=== PATIENT | male | born 1970 | race Two or more races ===

== ENCOUNTER 2019-02-06 09:51 | Inpatient (IN) | payer SELFPAY ==
[2019-02-06] MEDS ORDERED: MORPHINE SULFATE 10 MG/ML INJ IV ONE (11:43)
--- NOTE | 2019-02-06 11:48 | ER Document Report ---
ED General - General Chief Complaint: Foot Pain Stated Complaint: FOOT PAIN Mode of Arrival: Ambulatory Information source: Patient, Friend TRAVEL OUTSIDE OF THE [place] IN LAST 30 DAYS: No - HPI Notes: 48-year-old male who is a noncompliant diabetic presents to the ED with a friend for evaluation of his left foot that he is concerned about infection due to ulcerated sores, black discoloration and severe pain. Patient primarily speaks Azeri but does understand [place]i and able to speak [place]i. patient and family friend states that his sores on his foot started roughly 6 weeks ago, patient had complained about them but he did not feel any pain. Reports a sore started a sore on the bottom of his left foot that has increased in size with noted swelling along with sores between his left toes. family friend is with patient, currently at bedside, called Dr. Reno, local family medicine physician, who advised him to come to the emergency room considering his last blood work which was over 5 years ago was A1c was 10.8 and his blood sugar was 398. Family friend states that patient has been drinking heavily in the last couple of years. Patient states that he no longer ambulate on his own. denies fevers, chills, chest pain,palpitations, shortness of breath, dyspnea, nausea, vomiting, diarrhea, abdominal pain, hematuria,LH, dizziness, syncope, headaches, URI, neck pain, weakness, bowel or bladder dysfunction, saddle anesthesia, muscle paralysis, weakness in bilateral upper or lower extremities equally or rash. - Related Data Allergies/Adverse Reactions: No Known Allergies Allergy (Verified 02/06/19 10:15) Past Medical History - General Information source: Patient - Social History Smoking Status: Never Smoker Chew tobacco use (# tins/day): No Frequency of alcohol use: Occasional Drug Abuse: None Family History: Reviewed & Not Pertinent Patient has suicidal ideation: No Patient has homicidal ideation: No - Past Medical History Cardiac Medical History: Reports: Hx Hypertension Renal/ Medical History: Denies: Hx Peritoneal Dialysis Review of Systems - Review of Systems Constitutional: See HPI EENT: No symptoms reported Cardiovascular: No symptoms reported Respiratory: No symptoms reported Gastrointestinal: No symptoms reported Genitourinary: No symptoms reported Male Genitourinary: No symptoms reported Musculoskeletal: See HPI Skin: See HPI Hematologic/Lymphatic: No symptoms reported Neurological/Psychological: No symptoms reported Physical Exam - Vital signs Vitals: Temp Pulse Resp BP Pulse Ox 98.1 F 107 H 16 130/90 H 99 02/06/19 10:15 02/06/19 10:15 02/06/19 10:15 02/06/19 10:15 02/06/19 10:15 - Notes Notes: PHYSICAL EXAMINATION: GENERAL: Well-appearing, well-nourished and in no acute distress. HEAD: Atraumatic, normocephalic. EYES: Pupils equal round and reactive to light, extraocular movements intact, sclera anicteric, conjunctiva are normal. ENT: Nares patent, oropharynx clear without exudates. Moist mucous membranes. NECK: Normal range of motion, supple without lymphadenopathy LUNGS: Breath sounds clear to auscultation bilaterally and equal. No wheezes rales or rhonchi. HEART: Regular rate and rhythm without murmurs ABDOMEN: Soft, nontender, nondistended abdomen. No guarding, no rebound. No ma sses appreciated. Musculoskeletal: Normal range of motion, no pitting or edema. No cyanosis. NEUROLOGICAL: Cranial nerves grossly intact. Normal speech, normal gait. Normal sensory, motor exams PSYCH: Normal mood, normal affect. SKIN: Warm, Dry, normal turgor, no rashes or lesions noted. 2nd and 3rd Left toes with black discoloration with swelling, erythema and warmth to touch on dorsal aspect of left foot with decubitus ulcer to proximal plantar aspect with non-blanching white discoloration. unable to palpate distal pulses on the left, able to palpate distal pulses on right. able to wiggle toes on his left foot. negative squeeze test bilaterally, negative [place]'s test bilaterally. - General General appearance: Alert Course - Re-evaluation Re-evalutation: 02/06/19 16:21 48-year-old male with afebrile slightly tachycardic and in moderate pain presents with friend for evaluation of foot swelling, ulceration and discoloration that was brought to friend's attention today, patient has been battling these sores per family friend for the last 6 weeks. CBC shows a leukocytosis of 22 with was related brown like you likely do not think he has like there may come all the underlying no left shift, lactic is 1.6, sodium 128, potassium, renal function within normal limits, slightly elevated alk phos which is to be expected considering patient's diabetic foot ulcers and condition of the foot. Discussed laboratory findings with Dr. Keshawn Betancourt, who advised to monitor pt and hyponatremia since he is asymptomatic. Venous/arterial studies of left lower extremity negative for occlusion. Patient started on IV vancomycin and Zosyn, IV fluids, patient given IV pain control. X-ray left foot showed osteomyelitis intermetatarsal joints, no gas noted. Dr. Nesha baez, hospitalist, will admit patient to the surgical floor with surgical consult, Dr. John Smith, surgeon, at bedside at 1400, will bring patient to OR for likely amputation of the affected metatarsal joints, does not feel that an MRI is necessar prior. Patient pain control has been managed. On multiple re-evaluations patient has remained stable, vitals have been stable and patient is in no distress. Patient verbalized understanding of the plan that has before him of surgery and admission, all questions and concerns have been answered by this provider. Patient will be admitted to hospitalist service with surgical consult - Vital Signs Vital signs: Temp Pulse Resp BP Pulse Ox 100.2 F 110 H 18 139/66 H 96 02/06/19 14:59 02/06/19 14:59 02/06/19 14:59 02/06/19 14:59 02/06/19 14:59 - Laboratory Result Diagrams: 02/06/19 11:00 02/06/19 11:00 Laboratory results interpreted by me: 02/06/19 02/06/19 02/06/19 10:54 11:00 11:00 WBC 22.0 H RBC 3.65 L Hgb 12.9 L Hct 36.9 L MCV 101 H MCH 35.3 H Seg Neuts % (Manual) 93 H Lymphocytes % (Manual) 4 L Abs Neuts (Manual) 20.5 H Sodium 128.2 L Chloride 87 L Glucose 317 H POC Glucose 330 H Direct Bilirubin 0.8 H ALT 15 L Alkaline Phosphatase 138 H Ammonia Creatine Kinase 28 L Albumin 3.0 L Urine Protein Urine Glucose (UA) Urine Ketones Urine Blood Urine Urobilinogen Ur Leukocyte Esterase 02/06/19 02/06/19 12:10 13:57 WBC RBC Hgb Hct MCV MCH Seg Neuts % (Manual) Lymphocytes % (Manual) Abs Neuts (Manual) Sodium Chloride Glucose POC Glucose Direct Bilirubin ALT Alkaline Phosphatase Ammonia < 8.7 L Creatine Kinase Albumin Urine Protein 30 H Urine Glucose (UA) >=500 H Urine Ketones 80 H Urine Blood SMALL H Urine Urobilinogen 2.0 H Ur Leukocyte Esterase TRACE H Discharge - Discharge Clinical Impression: Osteomyelitis of left foot, Leukocytosis, Left infected gangrenous foot, Alcoholism /alcohol abuse Uncontrolled diabetes mellitus Qualifiers: Diabetes mellitus type: type 2 Condition: Stable Disposition: ADMITTED INPATIENT Admitting Provider: Hospitalist - Dr. Soriano
[2019-02-06] MEDS ORDERED: VANCOMYCIN HCL INJ 1000 MG VIAL IV ONE (11:50)
[2019-02-06] MEDS ORDERED: PIPERACILLIN/TAZOBACTAM 4.5 GM VIAL IV ONE (11:50)
[2019-02-06 11:52] LABS: HEMATOCRIT 36.9 % (37.9-51.0); HEMOGLOBIN 12.9 g/dL (13.5-17.0); MEAN CORPUSCULAR HEMOGLOBIN 35.3 pg (27.0-33.4); MEAN CORPUSCULAR HGB CONC 34.9 g/dL (32.0-36.0); MEAN CORPUSCULAR VOLUME 101 fl (80-97); PLATELET COUNT 364 10^3/uL (150-450); RED BLOOD COUNT 3.65 10^6/uL (4.35-5.55); RED CELL DISTRIBUTION WIDTH 12.2 % (11.5-14.0)
[2019-02-06 11:53] LABS: ALANINE AMINOTRANSFERASE 15 U/L (21-72); ALKALINE PHOSPHATASE 138 U/L (38-126); ANION GAP 14 (5-19); ASPARTATE AMINO TRANSFERASE 21 U/L (17-59); BILIRUBIN,DIRECT 0.8 mg/dL (0.0-0.4); BILIRUBIN,TOTAL 1.1 mg/dL (0.2-1.3); BLOOD UREA NITROGEN 17 mg/dL (7-20); CARBON DIOXIDE 27 mmol/L (22-30); CHLORIDE 87 mmol/L (98-107); CREATINE KINASE 28 U/L (55-170); GLUCOSE 317 mg/dL (75-110); POTASSIUM 4.4 mmol/L (3.6-5.0); SODIUM 128.2 mmol/L (137-145); TOTAL PROTEIN 6.8 g/dL (6.3-8.2)
[2019-02-06 11:55] LABS: ALCOHOL < 10 mg/dL (NONE DETECTED)
[2019-02-06 12:04] LABS: CREATINE KINASE MB 0.34 ng/mL (<4.55)
[2019-02-06 12:06] LABS: TROPONIN I < 0.012 ng/mL
[2019-02-06 12:14] LABS: ABSOLUTE LYMPHOCYTES# (MANUAL) 0.9 10^3/uL (0.5-4.7); ABSOLUTE MONOCYTES # (MANUAL) 0.7 10^3/uL (0.1-1.4); ABSOLUTE NEUTROPHILS# (MANUAL) 20.5 10^3/uL (1.7-8.2); BASOPHILS % (MANUAL) 0 % (0-2); EOSINOPHILS % (MANUAL) 0 % (0-6); LYMPHOCYTES % (MANUAL) 4 % (13-45); MONOCYTES % (MANUAL) 3 % (3-13); SEGMENTED NEUTROPHILS % (MAN) 93 % (42-78); TOTAL CELLS COUNTED 100
[2019-02-06 12:17] LABS: PLATELET COMMENT ADEQUATE; TOXIC GRANULATION 1+
--- NOTE | 2019-02-06 12:26 | RADIOLOGY REPORT (SQ) ---
EXAM DESCRIPTION: CHEST 2 VIEWS COMPLETED DATE/TIME: 02/06/2019 12:06 pm REASON FOR STUDY: left lower leg swelling with erythema/ulceration COMPARISON: 04/22/2010. EXAM PARAMETERS: NUMBER OF VIEWS: two views TECHNIQUE: Digital Frontal and Lateral radiographic views of the chest acquired. RADIATION DOSE: NA LIMITATIONS: none FINDINGS: LUNGS AND PLEURA: Diffuse interstitial changes are again seen and slightly more prominent. No lobar infiltrates, masses or pneumothorax. No pleural effusion. MEDIASTINUM AND HILAR STRUCTURES: No masses or contour abnormalities. HEART AND VASCULAR STRUCTURES: Heart normal size. No evidence for failure. BONES: No acute findings. HARDWARE: None in the chest. OTHER: No other significant finding. IMPRESSION: DIFFUSE INTERSTITIAL SCARRING. NO ACUTE RADIOGRAPHIC FINDING IN THE CHEST. TECHNICAL DOCUMENTATION: JOB ID: [id number] [employer]- All Rights Reserved Reading location - IP/workstation name: [email or web address]
[2019-02-06 12:35] LABS: APPEARANCE,URINE CLEAR; BILIRUBIN,URINE NEGATIVE (NEGATIVE); COLOR,URINE YELLOW; GLUCOSE, URINE >=500 mg/dL (NEGATIVE); KETONES,URINE 80 mg/dL (NEGATIVE); LEUKOCYTE ESTERASE,URINE TRACE (NEGATIVE); NITRITE,URINE NEGATIVE (NEGATIVE); PROTEIN,URINE 30 mg/dL (NEGATIVE); URINE SPECIFIC GRAVITY 1.021
--- NOTE | 2019-02-06 12:56 | RADIOLOGY REPORT (SQ) ---
EXAM DESCRIPTION: FOOT LEFT COMPLETE COMPLETED DATE/TIME: 02/06/2019 12:22 pm REASON FOR STUDY: ulceration to left foot COMPARISON: None. NUMBER OF VIEWS: Three views. TECHNIQUE: AP, lateral and oblique radiographic images acquired of the left foot. LIMITATIONS: None. FINDINGS: MINERALIZATION: Normal. BONES: No acute fracture or dislocation. Patchy osteopenia at the base of the proximal phalanx of th e 4th and 5th toe and also involving the head of the 3rd and 4th metatarsals and possibly the 2nd. I ndistinct appearance of the cortex. JOINTS: Degenerative changes in the 1st metatarsal phalangeal joint. SOFT TISSUES: On the lateral image there is evidence of a superficial soft tissue ulceration on the p lantar surface at the base of the toes. No foreign body. OTHER: No other significant finding. IMPRESSION: SUPERFICIAL SOFT TISSUE ULCERATION ON THE LATERAL IMAGE. ON THE AP AND OBLIQUE IMAGES T HERE IS PATCHY OSTEOPENIA AND INDISTINCT APPEARANCE OF THE CORTEX AT THE BASE OF THE PROXIMAL PHALANX OF THE 3RD AND 4TH TOE. SIMILAR APPEARANCE INVOLVING THE HEAD OF THE 3RD AND 4TH METATARSALS AND PO SSIBLY THE 2ND. FINDINGS SUSPICIOUS FOR OSTEOMYELITIS. FURTHER EVALUATION WITH MRI OF THE FOOT MAY BE INDICATED. TECHNICAL DOCUMENTATION: JOB ID: [id number] [employer]- All Rights Reserved Reading location - IP/workstation name: [email or web address]
[2019-02-06] MEDS ORDERED: INSULIN REG, HUMAN 100 UNIT/ML 3 ML VIAL (PYX) IV ONE ×2 (13:03→23:45)
[2019-02-06] MEDS: RINGERS SOLUTION,LACTATED 1,000 ML IV PRN (13:33)
--- NOTE | 2019-02-06 13:41 | PDOC H&P ---
History of Present Illness Admission Date/PCP: NO LOCALMD History of Present Illness: ANN RAMIREZ is a 48 year old male male patient with past medical history of type 2 diabetes mellitus, hypertension, alcoholism presents to ED for left foot pain and ulceration. Patient brought by friends and family members. Reportedly patient has left foot ulcer which has been going on for the last 6 weeks. Patient denies any fever chills palpitation or diaphoresis. Patient is a known alcoholic and he drinks on daily basis. Patient is also noncompliant with his medication and his hemoglobin A1c 5 years ago was 10.8. Upon my evaluation the patient's left foot is swollen erythematous and the second and third toe are gangrenous. There is also a wound on the metatarsal area. Dr. Marie consulted by the ER attending to evaluate the patient in for possible incision drainage and total debridement. I think patient possibly may need amputation of the gangrenous toe. Past Medical History Cardiac Medical History: Reports: Hypertension Social History Smoking Status: Never Smoker - Advance Directive Resuscitation Status: Full Code Family History Parental Family History Reviewed: Yes Children Family History Reviewed: Yes Sibling(s) Family History Reviewed.: Yes Medication/Allergy Allergies/Adverse Reactions: No Known Allergies Allergy (Verified 02/06/19 10:15) Review of Systems Constitutional: ABSENT: chills, fever(s), headache(s), weight gain, weight loss Eyes: ABSENT: visual disturbances Ears: ABSENT: hearing changes Cardiovascular: ABSENT: chest pain, dyspnea on exertion, edema, orthropnea, palpitations Respiratory: ABSENT: cough, hemoptysis Gastrointestinal: ABSENT: abdominal pain, constipation, diarrhea, hematemesis, hematochezia, nausea, vomiting Genitourinary: ABSENT: dysuria, hematuria Musculoskeletal: ABSENT: joint swelling Integumentary: ABSENT: rash, wounds Neurological: ABSENT: abnormal gait, abnormal speech, confusion, dizziness, fo sushma weakness, syncope Psychiatric: ABSENT: anxiety, depression, homidical ideation, suicidal ideation Endocrine: ABSENT: cold intolerance, heat intolerance, polydipsia, polyuria Hematologic/Lymphatic: ABSENT: easy bleeding, easy bruising Physical Exam Vital Signs: Temp Pulse Resp BP Pulse Ox 98.1 F 107 H 16 130/90 H 99 02/06/19 10:15 02/06/19 10:15 02/06/19 10:15 02/06/19 10:15 02/06/19 10:15 Intake & Output 02/05/19 02/06/19 02/07/19 06:59 06:59 06:59 Weight 70.3 kg General appearance: PRESENT: no acute distress Head exam: PRESENT: atraumatic, normocephalic Mouth exam: PRESENT: moist Neck exam: ABSENT: carotid bruit, JVD, lymphadenopathy, thyromegaly Respiratory exam: PRESENT: clear to auscultation hollis. ABSENT: rales, rhonchi, wheezes Cardiovascular exam: PRESENT: RRR. ABSENT: diastolic murmur, rubs, systolic murmur Extremities exam: PRESENT: other - The left foot is erythematous swollen and macerated with gangrenous Results Laboratory Results: 02/06/19 11:00 02/06/19 11:00 02/06/19 02/06/19 02/06/19 11:00 11:00 12:10 WBC 22.0 H RBC 3.65 L Hgb 12.9 L Hct 36.9 L MCV 101 H MCH 35.3 H MCHC 34.9 RDW 12.2 Plt Count 364 Seg Neutrophils % Not Reportable Lymphocytes % Not Reportable Monocytes % Not Reportable Eosinophils % Not Reportable Basophils % Not Reportable Absolute Neutrophils Not Reportable Absolute Lymphocytes Not Reportable Absolute Monocytes Not Reportable Absolute Eosinophils Not Reportable Absolute Basophils Not Reportable Sodium 128.2 L Potassium 4.4 Chloride 87 L Carbon Dioxide 27 Anion Gap 14 BUN 17 Creatinine 0.83 Est GFR ( Amer) > 60 Est GFR (Non-Af Amer) > 60 Glucose 317 H Lactic Acid 1.6 Calcium 9.0 Total Bilirubin 1.1 AST 21 ALT 15 L Alkaline Phosphatase 138 H Total Protein 6.8 Albumin 3.0 L Urine Color Urine Appearance Urine pH Ur Specific [place] Urine Protein Urine Glucose (UA) Urine Ketones Urine Blood Urine Nitrite Ur Leukocyte Esterase Urine WBC (Auto) Urine RBC (Auto) 02/06/19 12:10 WBC RBC Hgb Hct MCV MCH MCHC RDW Plt Count Seg Neutrophils % Lymphocytes % Monocytes % Eosinophils % Basophils % Absolute Neutrophils Absolute Lymphocytes Absolute Monocytes Absolute Eosinophils Absolute Basophils Sodium Potassium Chloride Carbon Dioxide Anion Gap BUN Creatinine Est GFR ( Amer) Est GFR (Non-Af Amer) Glucose Lactic Acid Calcium Total Bilirubin AST ALT Alkaline Phosphatase Total Protein Albumin Urine Color YELLOW Urine Appearance CLEAR Urine pH 6.0 Ur Specific [place] 1.021 Urine Protein 30 H Urine Glucose (UA) >=500 H Urine Ketones 80 H Urine Blood SMALL H Urine Nitrite NEGATIVE Ur Leukocyte Esterase TRACE H Urine WBC (Auto) 6 Urine RBC (Auto) 5 02/06/19 02/06/19 11:00 11:00 Creatine Kinase 28 L CK-MB (CK-2) 0.34 Troponin I < 0.012 Impressions: Chest X-Ray 02/06/19 11:26 IMPRESSION: DIFFUSE INTERSTITIAL SCARRING. NO ACUTE RADIOGRAPHIC FINDING IN THE CHEST. Foot X-Ray 02/06/19 11:28 IMPRESSION: SUPERFICIAL SOFT TISSUE ULCERATION ON THE LATERAL IMAGE. ON THE AP AND OBLIQUE IMAGES THERE IS PATCHY OSTEOPENIA AND INDISTINCT APPEARANCE OF THE CORTEX AT THE BASE OF THE PROXIMAL PHALANX OF THE 3RD AND 4TH TOE. SIMILAR APPEARANCE INVOLVING THE HEAD OF THE 3RD AND 4TH METATARSALS AND POSSIBLY THE 2ND. FINDINGS SUSPICIOUS FOR OSTEOMYELITIS. FURTHER EVALUATION WITH MRI OF THE FOOT MAY BE INDICATED. Assessment & Plan - Diagnosis (1) Left infected gangrenous foot Is this a current diagnosis for this admission?: Yes Plan: Second and third left toe looks it has with gangrene. Dr. Marie consulted. We will keep him on IV vancomycin and Zosyn. (2) Leukocytosis Is this a current diagnosis for this admission?: Yes Plan: Due to #1. Will monitor CBC. (3) Uncontrolled diabetes mellitus Qualifiers: Diabetes mellitus type: type 2 Is this a current diagnosis for this admission?: Yes Plan: We will start him on Lantus and sliding scale. (4) Alcoholism /alcohol abuse Is this a current diagnosis for this admission?: Yes Plan: I will put him on alcohol withdrawal protocol. (5) Hypertension Qualifiers: Hypertension type: essential hypertension Qualified Code(s): I10 - Essential (primary) hypertension Is this a current diagnosis for this admission?: Yes Plan: I will start him on metoprolol - Inpatient Certification Medical Necessity: Need Close Monitoring Due to Risk of Patient Decompensation, Need for IV Antibiotics
[2019-02-06] MEDS ORDERED: VANCOMYCIN HCL 0 MG in DEXTROSE 5%-WATER 250 ML IV NR (13:45)
[2019-02-06] MEDS ORDERED: LORAZEPAM INJ 2 MG/1 ML VIAL IV PRN (13:46)
[2019-02-06] MEDS ORDERED: VANCOMYCIN HCL INJ 1000 MG VIAL ONE (14:12)
--- NOTE | 2019-02-06 14:19 | PDOC CONSULTATION ---
Consultation Consult Date: 02/06/19 Attending physician:: libra Consult reason:: Septic left foot History of Present Illness Patient complains of: Foot pain History of Present Illness: ANN RAMIREZ is a 48 year old male Who presents emergency department via ground rescue complaining of several day history of a left foot pain, swelling, drainage. He was told by his friend at work to seek medical care. He is in the emergency department this morning with a septic appearing left foot. X-rays show findings consistent with osteomyelitis and soft tissue ulceration. Surgery was consulted, patient evaluated and found to have a threatened forefoot in need of urgent operative debridement. Past Medical History Past Medical History: Diabetes and alcoholism Cardiac Medical History: Reports: Hypertension Past Surgical History Past Surgical History: None known Social History Smoking Status: Never Smoker - Advance Directive Resuscitation Status: Full Code Family History Family History: None Parental Family History Reviewed: No Children Family History Reviewed: No Sibling(s) Family History Reviewed.: No Medication/Allergy Allergies/Adverse Reactions: No Known Allergies Allergy (Verified 02/06/19 10:15) Review of Systems ROS unobtainable: Other - Due to language barrier unable to complete thorough review of systems Physical Exam Vital Signs: Temp Pulse Resp BP Pulse Ox 98.1 F 107 H 16 130/90 H 99 02/06/19 10:15 02/06/19 10:15 02/06/19 10:15 02/06/19 10:15 02/06/19 10:15 Intake & Output 02/05/19 02/06/19 02/07/19 06:59 06:59 06:59 Weight 70.3 kg General appearance: PRESENT: mild distress Head exam: PRESENT: normocephalic Eye exam: PRESENT: EOMI Mouth exam: PRESENT: dry mucosa Neck exam: PRESENT: full ROM Respiratory exam: PRESENT: clear to auscultation hollis Cardiovascular exam: PRESENT: RRR Pulses: PRESENT: normal carotid pulses, normal radial pulses, normal femoral pulses, other - Unable to feel pulses in left foot Vascular exam: PRESENT: other - Able to feel pulses in the right foot, posterior tibial and dorsalis pedis GI/Abdominal exam: PRESENT: soft Rectal exam: PRESENT: deferred Extremities exam: PRESENT: other - Grossly swollen erythematous left foot, with ischemic toes 2 and 3, mild edema toes 4 and 5 and 1; deep V-shaped necrotic area of skin on the plantar surface; left fourth mal perforans ulcer Psychiatric exam: PRESENT: appropriate affect Skin exam: PRESENT: dry Results Laboratory Results: 02/06/19 11:00 02/06/19 11:00 02/06/19 02/06/19 02/06/19 11:00 11:00 12:10 WBC 22.0 H RBC 3.65 L Hgb 12.9 L Hct 36.9 L MCV 101 H MCH 35.3 H MCHC 34.9 RDW 12.2 Plt Count 364 Seg Neutrophils % Not Reportable Lymphocytes % Not Reportable Monocytes % Not Reportable Eosinophils % Not Reportable Basophils % Not Reportable Absolute Neutrophils Not Reportable Absolute Lymphocytes Not Reportable Absolute Monocytes Not Reportable Absolute Eosinophils Not Reportable Absolute Basophils Not Reportable Sodium 128.2 L Potassium 4.4 Chloride 87 L Carbon Dioxide 27 Anion Gap 14 BUN 17 Creatinine 0.83 Est GFR ( Amer) > 60 Est GFR (Non-Af Amer) > 60 Glucose 317 H Lactic Acid 1.6 Calcium 9.0 Total Bilirubin 1.1 AST 21 ALT 15 L Alkaline Phosphatase 138 H Total Protein 6.8 Albumin 3.0 L Urine Color Urine Appearance Urine pH Ur Specific [place] Urine Protein Urine Glucose (UA) Urine Ketones Urine Blood Urine Nitrite Ur Leukocyte Esterase Urine WBC (Auto) Urine RBC (Auto) 02/06/19 12:10 WBC RBC Hgb Hct MCV MCH MCHC RDW Plt Count Seg Neutrophils % Lymphocytes % Monocytes % Eosinophils % Basophils % Absolute Neutrophils Absolute Lymphocytes Absolute Monocytes Absolute Eosinophils Absolute Basophils Sodium Potassium Chloride Carbon Dioxide Anion Gap BUN Creatinine Est GFR ( Amer) Est GFR (Non-Af Amer) Glucose Lactic Acid Calcium Total Bilirubin AST ALT Alkaline Phosphatase Total Protein Albumin Urine Color YELLOW Urine Appearance CLEAR Urine pH 6.0 Ur Specific [place] 1.021 Urine Protein 30 H Urine Glucose (UA) >=500 H Urine Ketones 80 H Urine Blood SMALL H Urine Nitrite NEGATIVE Ur Leukocyte Esterase TRACE H Urine WBC (Auto) 6 Urine RBC (Auto) 5 02/06/19 02/06/19 11:00 11:00 Creatine Kinase 28 L CK-MB (CK-2) 0.34 Troponin I < 0.012 Impressions: Chest X-Ray 02/06/19 11:26 IMPRESSION: DIFFUSE INTERSTITIAL SCARRING. NO ACUTE RADIOGRAPHIC FINDING IN THE CHEST. Foot X-Ray 02/06/19 11:28 IMPRESSION: SUPERFICIAL SOFT TISSUE ULCERATION ON THE LATERAL IMAGE. ON THE AP AND OBLIQUE IMAGES THERE IS PATCHY OSTEOPENIA AND INDISTINCT APPEARANCE OF THE CORTEX AT THE BASE OF THE PROXIMAL PHALANX OF THE 3RD AND 4TH TOE. SIMILAR APPEARANCE INVOLVING THE HEAD OF THE 3RD AND 4TH METATARSALS AND POSSIBLY THE 2ND. FINDINGS SUSPICIOUS FOR OSTEOMYELITIS. FURTHER EVALUATION WITH MRI OF THE FOOT MAY BE INDICATED. Assessment & Plan - Diagnosis (1) Left infected gangrenous foot Is this a current diagnosis for this admission?: Yes Plan: Impression: Threatened left foot due to septic diabetic soft tissue and likely bone infection, with left toes 2 and 3 nonviable Recommendations: 1. Take patient to the operating room for emergent debridement of left foot including left toes, and possibly portion of forefoot; subsequent operations may be required; foot is in jeopardy. I discussed this with the patient; I am uncertain as to his level of understanding 2. Patient will be admitted to the hospital service with surgery consulting. Currently being delivered. (2) Alcoholism /alcohol abuse Is this a current diagnosis for this admission?: Yes (3) Hypertension Qualifiers: Hypertension type: essential hypertension Qualified Code(s): I10 - Essential (primary) hypertension Is this a current diagnosis for this admission?: Yes (4) Uncontrolled diabetes mellitus Qualifiers: Diabetes mellitus type: type 2 Is this a current diagnosis for this admission?: Yes - Time Time Spent: 30 to 50 Minutes Smoking Cessation Education: 3 to 10 minutes Medications reviewed and adjusted accordingly: Yes Anticipated discharge: Home - Inpatient Certification Based on my medical assessment, after consideration of the patient's c omorbidities, presenting symptoms, or acuity I expect that the services needed warrant INPATIENT care.: Yes I certify that my determination is in accordance with my understanding of Medicare's requirements for reasonable and necessary INPATIENT services [42 CFR 412.3e].: Yes Medical Necessity: Need For IV Fluids, Need for Pain Control, Need for IV Antibiotics, Need for Surgery
--- NOTE | 2019-02-06 14:22 | XCELERA REPORT ---
[address] [facility] [address] Lower Extremity Venous Evaluation Procedure: Color flow and duplex imaging of the veins of the left lower extremity as well as the right Common Femoral vein. Right Sided Venous Evaluation The right common femoral vein is fully compressible. Spontaneous and phasic flow is present in the right common femoral vein. Left Sided Venous Evaluation Normal vessel filling wall to wall, compression and augmentation as well as Colour flow down to the infrageniculate veins. Interpretation Summary No duplex evidence of DVT or obstruction in the left lower extremity nor in the right Common Femoral vein. Name: ANN RAMIREZ Age: 48 yrs Gender: Male : 1970 Patient Status: Inpatient Patient Location: [place] [address]^A Study Date: 02/06/2019 12:40 PM Reason For Study: eft lower leg swelling with erythema/ulceration Ordering Physician: LOUIS STARKS Performed By: Kayla Adam : LOUIS STARKS > Vitor Saldaña
--- NOTE | 2019-02-06 14:27 | XCELERA REPORT ---
[address] [address] Lower Extremity Arterial Evaluation Name: ANN RAMIREZ Age: 48 yrs Gender: Male : 1970 Patient Status: Inpatient Patient Location: [place] [id number]^A Study Date: 02/06/2019 12:21 PM Procedure: A color flow and duplex scan of the lower extremity arteries was performed on the left with velocity and waveform anaylsis. Reason For Study: necrotic foot ulcers, diminished pedal pulses LLE Ordering Physician: LOUIS STARKS Performed By: Kayla Adam Measurements and Calculations Right Left HEALTHCARE CONSULTANT PSV 184.6 cm/sec Prox PFA PSV -125.7cm/sec Prox SFA PSV -134.1cm/sec Mid SFA PSV -146.9cm/sec Dist SFA PSV -108.1cm/sec Dist Pop A PSV 108.1 cm/sec Dist NARAYAN PSV 213.1 cm/sec Dist MOBILE PET GROOMER PSV 116.9 cm/sec Kevin Pedis PSV 149.4 cm/sec Left Side Arterial Evaluation Normal velocity and triphasic waveforms in the Common Femoral artery. . Biphasic with normal velocity with spectral broadening From Femoral to the Posterior tibial. Monophasic with normal velocity, spectral broadening in the Anterior Tibial artery. Ankle Brachial index not obtained due to pain. Interpretation Summary Moderate hemodynamically significant lesions in the left lower extremity only, on duplex imaging, at rest. Hemodynamic effects from the Femoral, sequential changes in the Anterior Tibial. : LOUIS STARKS > Vitor Saldaña
[2019-02-06] MEDS ORDERED: PROPOFOL INJ 200 MG/20 ML VIAL IV ONE ×2 (15:27→15:38)
[2019-02-06] MEDS ORDERED: HYDROMORPHONE HCL INJ/PF 2 MG/ML AMPULE ONE (15:27)
[2019-02-06] MEDS ORDERED: FENTANYL CITRATE INJ/PF 100 MCG/2 ML AMPUL ONE (15:27)
[2019-02-06] MEDS ORDERED: MIDAZOLAM 2 MG/2 ML INJ ONE (15:27)
[2019-02-06] MEDS ORDERED: DIPHENHYDRAMINE HCL 50 MG/ML VIAL IV PRN (16:15)
[2019-02-06] MEDS ORDERED: MORPHINE SULFATE 10 MG/ML INJ IV PRN (16:15)
[2019-02-06] MEDS ORDERED: FENTANYL CITRATE INJ/PF 100 MCG/2 ML AMPUL IV PRN ×3 (16:15)
[2019-02-06] MEDS ORDERED: MEPERIDINE HCL/PF INJ 25 MG/1 ML DISP.SYRIN IV PRN (16:15)
--- NOTE | 2019-02-06 16:59 | Operative Report ---
Operative Report DATE OF SURGERY: 02/06/19 PREOPERATIVE DIAGNOSIS: Septic diabetic left foot with ischemic toes 2 and 3 POSTOPERATIVE DIAGNOSIS: Same with aggressive soft tissue infection, osteomyelitis of toes 2 3 and 4, with extension of infection to the dorsum of the left foot OPERATION: Aggressive debridement of left foot including amputations of toes 2 3 and 4, metatarsal heads of 2 3 and 4, counterincision dorsum of left foot with Jorje loop drain insertion SURGEON: KENDALL BORREGO ANESTHESIA: GA TISSUE REMOVED OR ALTERED: Toes 2, 3, 4, skin, fascia, tendons, bone chunks COMPLICATIONS: None ESTIMATED BLOOD LOSS: 25 cc INTRAOPERATIVE FINDINGS: See below PROCEDURE: The patient was taken to the operating where general anesthesia was induced. Left foot was then isolated, prepped and draped sterile fashion. Surgical plan surgical timeout were conducted. The foot was significant for obvious infection, and ischemia involving toes 2 3 and 4 on the left side, with extension to the plantar surface metatarsal areas 2 and 3, and the dorsum of the midfoot. The fourth toe was considered marginal status. Using a 10 blade, the skin and subcutaneous tissue, fascia, and webspace of the toes 2 and 3 incised. Toes 2 and 3 were removed using bone cutter. Visualization of the medial aspect of the fourth toe confirmed its non-viability so the fourth toe was amputated as well. Metatarsal heads were taken down with a large bone rondure in the second, third and fourth metatarsal positions. A counterincision was made on the dorsum of the foot the mid foot-out of tarsal area, longitudinally oriented. More pus was evacuated. Of note pus was noted around toes 2 3 as well as the plantar surface of the foot; cultures were sent for Gram stain and sensitivity. A large Jorje drain was then placed between the counterincision and the initial amputation incision. I used a Erna clamp to break up any loculations under the skin flaps around the counterincision. The lateral left fifth metatarsal area was bruised but not ischemic. I probed this area with Erna clamp and I was not able to introduce a pocket therefore it was left as is. I now irrigated the wounds with 3 L of pulse lavage irrigation, normal saline. Small bleeders likely digital vessels cauterized as encountered. At this point I felt that I had done a sufficient level of aggressive damage control debridement of this threatened forefoot. Several feet of half inch iodoform packing was inserted into the open wound, and then a 4 x 4's Kerlix and Jorge wrap applied. Patient taught procedure well, extubated, and taken to recovery in stable condition.
[2019-02-06] MEDS ORDERED: ONDANSETRON HCL INJ/PF 4 MG/2 ML SDV IV PRN (17:00)
[2019-02-06] MEDS: ENOXAPARIN SODIUM INJ 40 MG/0.4 ML DISP.SYRIN SUBCUT SCH (18:08)
[2019-02-06] MEDS: DIAZEPAM 5 MG TABLET PO SCH ×2 (18:08→23:48)
[2019-02-06] MEDS: PIPERACILLIN SODIUM/TAZOBACTAM 4.5 GM in NORMAL SALINE 100 ML IV SCH (18:46)
[2019-02-06] MEDS: OXYCODONE-ACETAMINOPHEN 5-325 MG TABLET PO PRN (20:33)
[2019-02-06] MEDS: KETOROLAC TROMETHAMINE INJ/PF 30 MG/1 ML SDV IV PRN (20:34)
[2019-02-06] MEDS: VANCOMYCIN HCL 1,500 MG in DEXTROSE 5%-WATER 250 ML IV SCH (23:48)
[2019-02-06] MEDS: FAMOTIDINE 20 MG TABLET PO SCH (23:48)
[2019-02-07] MEDS: PIPERACILLIN SODIUM/TAZOBACTAM 4.5 GM in NORMAL SALINE 100 ML IV SCH ×4 (01:36→17:25)
[2019-02-07] MEDS: OXYCODONE-ACETAMINOPHEN 5-325 MG TABLET PO PRN ×2 (04:37→17:27)
[2019-02-07] MEDS: KETOROLAC TROMETHAMINE INJ/PF 30 MG/1 ML SDV IV PRN ×2 (04:38→12:11)
[2019-02-07] MEDS: DIAZEPAM 5 MG TABLET PO SCH ×3 (05:47→22:38)
[2019-02-07 08:18] LABS: ABSOLUTE EOSINOPHILS # (AUTO) 0.1 10^3/uL (0.0-0.6); ABSOLUTE MONOCYTES (AUTO) 1.2 10^3/uL (0.1-1.4); ABSOLUTE NEUT (AUTO) 14.4 10^3/uL (1.7-8.2); BASOPHILS % (AUTO) 0.2 % (0-2); EOSINOPHILS % (AUTO) 0.3 % (0-6); HEMATOCRIT 34.8 % (37.9-51.0); LYMPHOCYTES % (AUTO) 5.9 % (13-45); MEAN CORPUSCULAR HGB CONC 34.5 g/dL (32.0-36.0); MEAN CORPUSCULAR VOLUME 101 fl (80-97); MONOCYTES % (AUTO) 7.3 % (3-13); PLATELET COUNT 372 10^3/uL (150-450); RED BLOOD COUNT 3.44 10^6/uL (4.35-5.55); RED CELL DISTRIBUTION WIDTH 12.5 % (11.5-14.0); SEGMENTED NEUTROPHILS % (AUTO) 86.3 % (42-78); TOTAL CELLS COUNTED % (AUTO) 100 %; WHITE BLOOD COUNT 16.6 10^3/uL (4.0-10.5)
[2019-02-07 08:40] LABS: ANION GAP 13 (5-19); BLOOD UREA NITROGEN 17 mg/dL (7-20); CALCIUM 8.5 mg/dL (8.4-10.2); CARBON DIOXIDE 28 mmol/L (22-30); CHLORIDE 93 mmol/L (98-107); GLUCOSE 248 mg/dL (75-110); SODIUM 133.7 mmol/L (137-145)
[2019-02-07] MEDS: ENOXAPARIN SODIUM INJ 40 MG/0.4 ML DISP.SYRIN SUBCUT SCH (09:45)
[2019-02-07] MEDS: FAMOTIDINE 20 MG TABLET PO SCH ×2 (09:46→22:39)
[2019-02-07] MEDS: VANCOMYCIN HCL 1,500 MG in DEXTROSE 5%-WATER 250 ML IV SCH ×2 (09:47→22:40)
[2019-02-07] MEDS ORDERED: INSULIN LISPRO 100 UNIT/ML 3 ML VIAL ONE (12:07)
[2019-02-07] MEDS ORDERED: GLUCAGON,HUMAN RECOMB 1 MG INJ IM PRN (12:30)
[2019-02-07] MEDS ORDERED: DEXTROSE 50%-WATER SYRINGE 25 GM/50 ML DOSE IV PRN (12:30)
[2019-02-07] MEDS ORDERED: DEXTROSE 50%-WATER SYRINGE 12.5 GM/25 ML DOSE IV PRN (12:30)
[2019-02-07] MEDS ORDERED: DEXTROSE 40% GEL 15 GM TUBE X 2 PO PRN (12:30)
[2019-02-07] MEDS ORDERED: DEXTROSE 40% GEL 15 GM TUBE PO PRN (12:30)
--- NOTE | 2019-02-07 13:43 | PDOC PROGRESS REPORT ---
Subjective Progress Note for:: 02/07/19 Subjective:: ANN RAMIREZ is a 48 year old male male patient with past medical history of type 2 diabetes mellitus, hypertension, alcoholism presents to ED for left foot pain, infection and ulceration. Wound and blood cultures are pending. Patient has been started empirically on vancomycin and Zosyn. Yesterday Dr. Klein performed extensive aggressive debridement of left foot including amputation of toes second, third and fourth metatarsal heads. Morning I seen adina hale resting in bed and he reports his pain is relatively better than yesterday. The surgical site is cleanly dressed no soaking or bleeding. Reason For Visit: LEFT INFECTED WITH GANGRENOUS FOOT Physical Exam Vital Signs: Temp Pulse Resp BP Pulse Ox 98.8 F 101 H 18 155/73 H 97 02/07/19 11:52 02/07/19 11:52 02/07/19 11:52 02/07/19 11:52 02/07/19 11:52 Intake & Output 02/06/19 02/07/19 02/08/19 06:59 06:59 06:59 Intake Total 4925 450 Output Total 420 Balance 4505 450 Weight 75.2 kg 75.2 kg General appearance: PRESENT: no acute distress, well-developed, well-nourished Head exam: PRESENT: atraumatic, normocephalic Eye exam: PRESENT: conjunctiva pink, EOMI, PERRLA. ABSENT: scleral icterus Ear exam: PRESENT: normal external ear exam Mouth exam: PRESENT: moist, tongue midline Neck exam: ABSENT: carotid bruit, JVD, lymphadenopathy, thyromegaly Respiratory exam: PRESENT: clear to auscultation hollis. ABSENT: rales, rhonchi, wheezes Cardiovascular exam: PRESENT: RRR. ABSENT: diastolic murmur, rubs, systolic murmur Pulses: PRESENT: normal dorsalis pedis pul Vascular exam: PRESENT: normal capillary refill GI/Abdominal exam: PRESENT: normal bowel sounds, soft. ABSENT: distended, guarding, mass, organolmegaly, rebound, tenderness Rectal exam: PRESENT: deferred Extremities exam: PRESENT: other - Left foot is dressed. Neurological exam: PRESENT: alert, awake, oriented to person, oriented to place, oriented to time, oriented to situation, CN II-XII grossly intact. ABSENT: motor sensory deficit Psychiatric exam: PRESENT: appropriate affect, normal mood. ABSENT: homicidal ideation, suicidal ideation Skin exam: PRESENT: dry, intact, warm. ABSENT: cyanosis, rash Results Laboratory Results: 02/07/19 07:50 02/07/19 07:50 02/06/19 02/07/19 02/07/19 13:57 07:50 07:50 WBC 16.6 H RBC 3.44 L Hgb 12.0 L Hct 34.8 L MCV 101 H MCH 35.0 H MCHC 34.5 RDW 12.5 Plt Count 372 Seg Neutrophils % 86.3 H Lymphocytes % 5.9 L Monocytes % 7.3 Eosinophils % 0.3 Basophils % 0.2 Absolute Neutrophils 14.4 H Absolute Lymphocytes 1.0 Absolute Monocytes 1.2 Absolute Eosinophils 0.1 Absolute Basophils 0.0 Sodium 133.7 L Potassium 4.0 Chloride 93 L Carbon Dioxide 28 Anion Gap 13 BUN 17 Creatinine 0.85 Est GFR ( Amer) > 60 Est GFR (Non-Af Amer) > 60 Glucose 248 H Calcium 8.5 Ammonia < 8.7 L 02/06/19 02/06/19 11:00 11:00 Creatine Kinase 28 L CK-MB (CK-2) 0.34 Troponin I < 0.012 Impressions: Chest X-Ray 02/06/19 11:26 IMPRESSION: DIFFUSE INTERSTITIAL SCARRING. NO ACUTE RADIOGRAPHIC FINDING IN THE CHEST. Foot X-Ray 02/06/19 11:28 IMPRESSION: SUPERFICIAL SOFT TISSUE ULCERATION ON THE LATERAL IMAGE. ON THE AP AND OBLIQUE IMAGES THERE IS PATCHY OSTEOPENIA AND INDISTINCT APPEARANCE OF THE CORTEX AT THE BASE OF THE PROXIMAL PHALANX OF THE 3RD AND 4TH TOE. SIMILAR APPEARANCE INVOLVING THE HEAD OF THE 3RD AND 4TH METATARSALS AND POSSIBLY THE 2ND. FINDINGS SUSPICIOUS FOR OSTEOMYELITIS. FURTHER EVALUATION WITH MRI OF THE FOOT MAY BE INDICATED. Assessment & Plan - Diagnosis (1) Left infected gangrenous foot Is this a current diagnosis for this admission?: Yes Plan: Second and third left toe looks it has with gangrene. Dr. Marie consulted. We will keep him on IV vancomycin and Zosyn. (2) Leukocytosis Is this a current diagnosis for this admission?: Yes Plan: His white cell count trended down from 20,000-16,000. (3) Uncontrolled diabetes mellitus Qualifiers: Diabetes mellitus type: type 2 Is this a current diagnosis for this admission?: Yes Plan: Continue current regimen (4) Alcoholism /alcohol abuse Is this a current diagnosis for this admission?: Yes Plan: I will put him on alcohol withdrawal protocol. (5) Hypertension Qualifiers: Hypertension type: essential hypertension Qualified Code(s): I10 - Essential (primary) hypertension Is this a current diagnosis for this admission?: Yes Plan: I will start him on metoprolol
[2019-02-07] MEDS: INSULIN LISPRO 100 UNIT/ML 3 ML VIAL SUBCUT SCH ×2 (17:25→22:39)
[2019-02-07] MEDS: INSULIN NPH (ISOPHANE), HUMAN 100 UNIT/ML 3 ML SUBCUT SCH (17:25)
--- NOTE | 2019-02-07 20:27 | PDOC PROGRESS REPORT ---
Subjective Progress Note for:: 02/07/19 Subjective:: pains operative site left foot Reason For Visit: LEFT INFECTED WITH GANGRENOUS FOOT Physical Exam Vital Signs: Temp Pulse Resp BP Pulse Ox 98.7 F 90 18 155/63 H 98 02/07/19 15:51 02/07/19 15:51 02/07/19 15:51 02/07/19 15:51 02/07/19 15:51 Intake & Output 02/06/19 02/07/19 02/08/19 06:59 06:59 06:59 Intake Total 4925 1480 Output Total 420 Balance 4505 1480 Weight 75.2 kg 75.2 kg Exam: Dressings changed and repacked wound with .25 inch iodoform gauze. Left richard drain that is looped to further up dorsum of foot. Wound looks dry and tender. No abscess collection after removal and changed of dressing. Results Laboratory Results: 02/07/19 07:50 02/07/19 07:50 02/07/19 02/07/19 07:50 07:50 WBC 16.6 H RBC 3.44 L Hgb 12.0 L Hct 34.8 L MCV 101 H MCH 35.0 H MCHC 34.5 RDW 12.5 Plt Count 372 Seg Neutrophils % 86.3 H Lymphocytes % 5.9 L Monocytes % 7.3 Eosinophils % 0.3 Basophils % 0.2 Absolute Neutrophils 14.4 H Absolute Lymphocytes 1.0 Absolute Monocytes 1.2 Absolute Eosinophils 0.1 Absolute Basophils 0.0 Sodium 133.7 L Potassium 4.0 Chloride 93 L Carbon Dioxide 28 Anion Gap 13 BUN 17 Creatinine 0.85 Est GFR ( Amer) > 60 Est GFR (Non-Af Amer) > 60 Glucose 248 H Calcium 8.5 02/06/19 02/06/19 11:00 11:00 Creatine Kinase 28 L CK-MB (CK-2) 0.34 Troponin I < 0.012 Impressions: Chest X-Ray 02/06/19 11:26 IMPRESSION: DIFFUSE INTERSTITIAL SCARRING. NO ACUTE RADIOGRAPHIC FINDING IN THE CHEST. Foot X-Ray 02/06/19 11:28 IMPRESSION: SUPERFICIAL SOFT TISSUE ULCERATION ON THE LATERAL IMAGE. ON THE AP AND OBLIQUE IMAGES THERE IS PATCHY OSTEOPENIA AND INDISTINCT APPEARANCE OF THE CORTEX AT THE BASE OF THE PROXIMAL PHALANX OF THE 3RD AND 4TH TOE. SIMILAR APPEARANCE INVOLVING THE HEAD OF THE 3RD AND 4TH METATARSALS AND POSSIBLY THE 2ND. FINDINGS SUSPICIOUS FOR OSTEOMYELITIS. FURTHER EVALUATION WITH MRI OF THE FOOT MAY BE INDICATED. Assessment & Plan - Time Time Spent with patient: 15-24 minutes - Inpatient Certification Medical Necessity: Need for IV Antibiotics, Risk of Complication if Not Cared For in Hospital - Plan Summary Plan Summary: Continue IV antibiotics Re-evaluate in am and see if candidate for a wound vac.
[2019-02-07] MEDS: KETOROLAC TROMETHAMINE 10 MG TABLET PO PRN (20:33)
[2019-02-07] MEDS ORDERED: METOCLOPRAMIDE HCL INJ/PF 10 MG/2 ML SDV IV ONE (23:34)
[2019-02-08] MEDS: PIPERACILLIN SODIUM/TAZOBACTAM 4.5 GM in NORMAL SALINE 100 ML IV SCH ×5 (01:25→23:39)
[2019-02-08] MEDS: KETOROLAC TROMETHAMINE 10 MG TABLET PO PRN ×3 (04:18→21:50)
[2019-02-08] MEDS: DIAZEPAM 5 MG TABLET PO SCH ×3 (05:05→21:51)
[2019-02-08 07:42] LABS: ABSOLUTE BASOPHILS # (AUTO) 0.1 10^3/uL (0.0-0.2); ABSOLUTE EOSINOPHILS # (AUTO) 0.1 10^3/uL (0.0-0.6); ABSOLUTE LYMPHOCYTES (AUTO) 1.3 10^3/uL (0.5-4.7); ABSOLUTE MONOCYTES (AUTO) 1.3 10^3/uL (0.1-1.4); EOSINOPHILS % (AUTO) 0.6 % (0-6); HEMATOCRIT 31.9 % (37.9-51.0); HEMOGLOBIN 11.4 g/dL (13.5-17.0); LYMPHOCYTES % (AUTO) 9.1 % (13-45); MEAN CORPUSCULAR HEMOGLOBIN 35.8 pg (27.0-33.4); MEAN CORPUSCULAR HGB CONC 35.7 g/dL (32.0-36.0); MEAN CORPUSCULAR VOLUME 100 fl (80-97); MONOCYTES % (AUTO) 9.2 % (3-13); PLATELET COUNT 419 10^3/uL (150-450); RED BLOOD COUNT 3.19 10^6/uL (4.35-5.55); RED CELL DISTRIBUTION WIDTH 12.7 % (11.5-14.0); SEGMENTED NEUTROPHILS % (AUTO) 80.1 % (42-78); TOTAL CELLS COUNTED % (AUTO) 100 %; WHITE BLOOD COUNT 13.7 10^3/uL (4.0-10.5)
[2019-02-08 08:04] LABS: ANION GAP 10 (5-19); BLOOD UREA NITROGEN 14 mg/dL (7-20); CALCIUM 8.4 mg/dL (8.4-10.2); CARBON DIOXIDE 26 mmol/L (22-30); CHLORIDE 97 mmol/L (98-107); GLUCOSE 190 mg/dL (75-110); POTASSIUM 4.6 mmol/L (3.6-5.0)
[2019-02-08] MEDS: FAMOTIDINE 20 MG TABLET PO SCH ×2 (09:32→21:50)
[2019-02-08] MEDS: ENOXAPARIN SODIUM INJ 40 MG/0.4 ML DISP.SYRIN SUBCUT SCH (09:32)
[2019-02-08] MEDS: INSULIN NPH (ISOPHANE), HUMAN 100 UNIT/ML 3 ML SUBCUT SCH ×2 (09:33→17:10)
[2019-02-08] MEDS: VANCOMYCIN HCL 1,500 MG in DEXTROSE 5%-WATER 250 ML IV SCH ×2 (09:33→21:51)
[2019-02-08] MEDS: INSULIN LISPRO 100 UNIT/ML 3 ML VIAL SUBCUT SCH ×4 (09:33→21:51)
[2019-02-08] MEDS: OXYCODONE-ACETAMINOPHEN 5-325 MG TABLET PO PRN ×2 (09:42→23:54)
--- NOTE | 2019-02-08 10:40 | PDOC PROGRESS REPORT ---
Subjective Progress Note for:: 02/08/19 Subjective:: No new complaint no significant change overnight. Reason For Visit: LEFT INFECTED WITH GANGRENOUS FOOT Physical Exam Vital Signs: Temp Pulse Resp BP Pulse Ox 98.2 F 92 19 158/83 H 97 02/08/19 08:00 02/08/19 08:00 02/08/19 08:00 02/08/19 08:00 02/08/19 08:00 Intake & Output 02/07/19 02/08/19 02/09/19 06:59 06:59 06:59 Intake Total 4925 1930 Output Total 420 Balance 4505 1930 Weight 75.2 kg 75.6 kg General appearance: PRESENT: no acute distress Head exam: PRESENT: atraumatic, normocephalic Eye exam: PRESENT: conjunctiva pink Mouth exam: PRESENT: moist Neck exam: ABSENT: carotid bruit, JVD, lymphadenopathy, thyromegaly Respiratory exam: PRESENT: clear to auscultation hollis. ABSENT: rales, rhonchi, wheezes Cardiovascular exam: PRESENT: RRR. ABSENT: diastolic murmur, rubs, systolic murmur GI/Abdominal exam: PRESENT: normal bowel sounds, soft. ABSENT: distended, guarding, mass, organolmegaly, rebound, tenderness Neurological exam: PRESENT: alert, awake, oriented to time, oriented to situatio n Results Laboratory Results: 02/08/19 07:20 02/08/19 07:20 02/08/19 02/08/19 07:20 07:20 WBC 13.7 H RBC 3.19 L Hgb 11.4 L Hct 31.9 L MCV 100 H MCH 35.8 H MCHC 35.7 RDW 12.7 Plt Count 419 Seg Neutrophils % 80.1 H Lymphocytes % 9.1 L Monocytes % 9.2 Eosinophils % 0.6 Basophils % 1.0 Absolute Neutrophils 11.0 H Absolute Lymphocytes 1.3 Absolute Monocytes 1.3 Absolute Eosinophils 0.1 Absolute Basophils 0.1 Sodium 133.0 L Potassium 4.6 Chloride 97 L Carbon Dioxide 26 Anion Gap 10 BUN 14 Creatinine 0.79 Est GFR ( Amer) > 60 Est GFR (Non-Af Amer) > 60 Glucose 190 H Calcium 8.4 02/06/19 16:27 Foot - Left Gram Stain - Final 02/06/19 02/06/19 11:00 11:00 Creatine Kinase 28 L CK-MB (CK-2) 0.34 Troponin I < 0.012 Impressions: Chest X-Ray 02/06/19 11:26 IMPRESSION: DIFFUSE INTERSTITIAL SCARRING. NO ACUTE RADIOGRAPHIC FINDING IN THE CHEST. Foot X-Ray 02/06/19 11:28 IMPRESSION: SUPERFICIAL SOFT TISSUE ULCERATION ON THE LATERAL IMAGE. ON THE AP AND OBLIQUE IMAGES THERE IS PATCHY OSTEOPENIA AND INDISTINCT APPEARANCE OF THE CORTEX AT THE BASE OF THE PROXIMAL PHALANX OF THE 3RD AND 4TH TOE. SIMILAR APPEARANCE INVOLVING THE HEAD OF THE 3RD AND 4TH METATARSALS AND POSSIBLY THE 2ND. FINDINGS SUSPICIOUS FOR OSTEOMYELITIS. FURTHER EVALUATION WITH MRI OF THE FOOT MAY BE INDICATED. Assessment & Plan - Diagnosis (1) Left infected gangrenous foot Is this a current diagnosis for this admission?: Yes Plan: Second and third left toe looks it has with gangrene. Dr. Marie consulted. We will keep him on IV vancomycin and Zosyn. (2) Leukocytosis Is this a current diagnosis for this admission?: Yes Plan: Markedly trending down. (3) Uncontrolled diabetes mellitus Qualifiers: Diabetes mellitus type: type 2 Is this a current diagnosis for this admission?: Yes Plan: Continue current regimen (4) Alcoholism /alcohol abuse Is this a current diagnosis for this admission?: Yes Plan: I will put him on alcohol withdrawal protocol. (5) Hypertension Qualifiers: Hypertension type: essential hypertension Qualified Code(s): I10 - Essential (primary) hypertension Is this a current diagnosis for this admission?: Yes Plan: I will start him on metoprolol
[2019-02-08 21:57] LABS: VANCOMYCIN,TROUGH 9.8 ug/mL (5.0-20.0)
[2019-02-09] MEDS: PIPERACILLIN SODIUM/TAZOBACTAM 4.5 GM in NORMAL SALINE 100 ML IV SCH (05:08)
[2019-02-09] MEDS: DIAZEPAM 5 MG TABLET PO SCH ×3 (05:08→21:24)
[2019-02-09 07:31] LABS: ABSOLUTE EOSINOPHILS # (AUTO) 0.2 10^3/uL (0.0-0.6); ABSOLUTE LYMPHOCYTES (AUTO) 1.5 10^3/uL (0.5-4.7); ABSOLUTE MONOCYTES (AUTO) 1.5 10^3/uL (0.1-1.4); ABSOLUTE NEUT (AUTO) 11.8 10^3/uL (1.7-8.2); BASOPHILS % (AUTO) 0.3 % (0-2); HEMATOCRIT 34.8 % (37.9-51.0); HEMOGLOBIN 11.8 g/dL (13.5-17.0); LYMPHOCYTES % (AUTO) 9.7 % (13-45); MEAN CORPUSCULAR HEMOGLOBIN 34.5 pg (27.0-33.4); MEAN CORPUSCULAR HGB CONC 33.8 g/dL (32.0-36.0); MEAN CORPUSCULAR VOLUME 102 fl (80-97); MONOCYTES % (AUTO) 9.7 % (3-13); PLATELET COUNT 473 10^3/uL (150-450); RED CELL DISTRIBUTION WIDTH 12.5 % (11.5-14.0); SEGMENTED NEUTROPHILS % (AUTO) 79.3 % (42-78); TOTAL CELLS COUNTED % (AUTO) 100 %
[2019-02-09 07:43] LABS: ANION GAP 10 (5-19); BLOOD UREA NITROGEN 12 mg/dL (7-20); CALCIUM 8.6 mg/dL (8.4-10.2); CARBON DIOXIDE 28 mmol/L (22-30); CHLORIDE 97 mmol/L (98-107); GLUCOSE 217 mg/dL (75-110); POTASSIUM 4.2 mmol/L (3.6-5.0); SODIUM 134.8 mmol/L (137-145)
[2019-02-09] MEDS: INSULIN NPH (ISOPHANE), HUMAN 100 UNIT/ML 3 ML SUBCUT SCH ×2 (08:47→17:44)
[2019-02-09] MEDS: INSULIN LISPRO 100 UNIT/ML 3 ML VIAL SUBCUT SCH ×4 (08:49→21:23)
[2019-02-09] MEDS: KETOROLAC TROMETHAMINE 10 MG TABLET PO PRN (08:56)
[2019-02-09] MEDS ORDERED: VANCOMYCIN HCL 750 MG in DEXTROSE 5%-WATER 250 ML IV SCH (10:00)
--- NOTE | 2019-02-09 10:54 | PDOC PROGRESS REPORT ---
Subjective Progress Note for:: 02/09/19 Subjective:: No new complaint. His wound culture grew gram-positive beta-hemolytic streptococci and Staphylococcus xylosus which is resistant to penicillins erythromycin and carboplatin times is only sensitive to vancomycin and clindamycin. Staphylococcus xylose this is a is a human and animal skin forest. It can cause human infections like pyelonephritis. Reason For Visit: LEFT INFECTED WITH GANGRENOUS FOOT Physical Exam Vital Signs: Temp Pulse Resp BP Pulse Ox 98.5 F 94 18 130/75 H 95 02/09/19 08:00 02/09/19 08:00 02/09/19 08:00 02/09/19 08:00 02/09/19 08:00 Intake & Output 02/08/19 02/09/19 02/10/19 06:59 06:59 06:59 Intake Total 1930 2310 Output Total 1100 Balance 1930 1210 Weight 75.6 kg 76.8 kg Results Laboratory Results: 02/09/19 07:00 02/09/19 07:00 02/09/19 02/09/19 07:00 07:00 WBC 15.0 H RBC 3.40 L Hgb 11.8 L Hct 34.8 L MCV 102 H MCH 34.5 H MCHC 33.8 RDW 12.5 Plt Count 473 H Seg Neutrophils % 79.3 H Lymphocytes % 9.7 L Monocytes % 9.7 Eosinophils % 1.0 Basophils % 0.3 Absolute Neutrophils 11.8 H Absolute Lymphocytes 1.5 Absolute Monocytes 1.5 H Absolute Eosinophils 0.2 Absolute Basophils 0.0 Sodium 134.8 L Potassium 4.2 Chloride 97 L Carbon Dioxide 28 Anion Gap 10 BUN 12 Creatinine 1.13 Est GFR ( Amer) > 60 Est GFR (Non-Af Amer) > 60 Glucose 217 H Calcium 8.6 02/06/19 16:27 Foot - Left Gram Stain - Final 02/06/19 16:27 Foot - Left Wound Culture - Final Staphylococcus Xylosus Group B Beta Streptococcus No Anaerobic Organisms 02/06/19 02/06/19 11:00 11:00 Creatine Kinase 28 L CK-MB (CK-2) 0.34 Troponin I < 0.012 Impressions: Chest X-Ray 02/06/19 11:26 IMPRESSION: DIFFUSE INTERSTITIAL SCARRING. NO ACUTE RADIOGRAPHIC FINDING IN THE CHEST. Foot X-Ray 02/06/19 11:28 IMPRESSION: SUPERFICIAL SOFT TISSUE ULCERATION ON THE LATERAL IMAGE. ON THE AP AND OBLIQUE IMAGES THERE IS PATCHY OSTEOPENIA AND INDISTINCT APPEARANCE OF THE C ORTEX AT THE BASE OF THE PROXIMAL PHALANX OF THE 3RD AND 4TH TOE. SIMILAR APPEARANCE INVOLVING THE HEAD OF THE 3RD AND 4TH METATARSALS AND POSSIBLY THE 2ND. FINDINGS SUSPICIOUS FOR OSTEOMYELITIS. FURTHER EVALUATION WITH MRI OF THE FOOT MAY BE INDICATED. Assessment & Plan - Diagnosis (1) Left infected gangrenous foot Is this a current diagnosis for this admission?: Yes Plan: I will switch him to clindamycin only (2) Leukocytosis Is this a current diagnosis for this admission?: Yes Plan: Markedly trending down. (3) Uncontrolled diabetes mellitus Qualifiers: Diabetes mellitus type: type 2 Is this a current diagnosis for this admission?: Yes Plan: Continue current regimen (4) Alcoholism /alcohol abuse Is this a current diagnosis for this admission?: Yes Plan: I will put him on alcohol withdrawal protocol. (5) Hypertension Qualifiers: Hypertension type: essential hypertension Qualified Code(s): I10 - Essential (primary) hypertension Is this a current diagnosis for this admission?: Yes Plan: I will start him on metoprolol
[2019-02-09] MEDS: FAMOTIDINE 20 MG TABLET PO SCH ×2 (11:51→21:25)
[2019-02-09] MEDS: ENOXAPARIN SODIUM INJ 40 MG/0.4 ML DISP.SYRIN SUBCUT SCH (11:52)
--- NOTE | 2019-02-09 11:55 | PDOC PROGRESS REPORT ---
Subjective Progress Note for:: 02/09/19 Subjective:: No new complaints Reason For Visit: LEFT INFECTED WITH GANGRENOUS FOOT Physical Exam Vital Signs: Temp Pulse Resp BP Pulse Ox 98.5 F 94 18 130/75 H 95 02/09/19 08:00 02/09/19 08:00 02/09/19 08:00 02/09/19 08:00 02/09/19 08:00 Intake & Output 02/08/19 02/09/19 02/10/19 06:59 06:59 06:59 Intake Total 1930 2310 Output Total 1100 Balance 1930 1210 Weight 75.6 kg 76.8 kg General appearance: PRESENT: no acute distress Musculoskeletal exam: PRESENT: other - Dressing removed; loop drain removed; still some pus coming out from the dorsal skin pocket. There is some granulation tissue. There is no active foul smell. The mid forefoot is mildly tender Results Laboratory Results: 02/09/19 07:00 02/09/19 07:00 02/09/19 02/09/19 07:00 07:00 WBC 15.0 H RBC 3.40 L Hgb 11.8 L Hct 34.8 L MCV 102 H MCH 34.5 H MCHC 33.8 RDW 12.5 Plt Count 473 H Seg Neutrophils % 79.3 H Lymphocytes % 9.7 L Monocytes % 9.7 Eosinophils % 1.0 Basophils % 0.3 Absolute Neutrophils 11.8 H Absolute Lymphocytes 1.5 Absolute Monocytes 1.5 H Absolute Eosinophils 0.2 Absolute Basophils 0.0 Sodium 134.8 L Potassium 4.2 Chloride 97 L Carbon Dioxide 28 Anion Gap 10 BUN 12 Creatinine 1.13 Est GFR ( Amer) > 60 Est GFR (Non-Af Amer) > 60 Glucose 217 H Calcium 8.6 02/06/19 16:27 Foot - Left Gram Stain - Final 02/06/19 16:27 Foot - Left Wound Culture - Final Staphylococcus Xylosus Group B Beta Streptococcus No Anaerobic Organisms 02/06/19 02/06/19 11:00 11:00 Creatine Kinase 28 L CK-MB (CK-2) 0.34 Troponin I < 0.012 Impressions: Chest X-Ray 02/06/19 11:26 IMPRESSION: DIFFUSE INTERSTITIAL SCARRING. NO ACUTE RADIOGRAPHIC FINDING IN THE CHEST. Foot X-Ray 02/06/19 11:28 IMPRESSION: SUPERFICIAL SOFT TISSUE ULCERATION ON THE LATERAL IMAGE. ON THE AP AND OBLIQUE IMAGES THERE IS PATCHY OSTEOPENIA AND INDISTINCT APPEARANCE OF THE CORTEX AT THE BASE OF THE PROXIMAL PHALANX OF THE 3RD AND 4TH TOE. SIMILAR APPEARANCE INVOLVING THE HEAD OF THE 3RD AND 4TH METATARSALS AND POSSIBLY THE 2ND. FINDINGS SUSPICIOUS FOR OSTEOMYELITIS. FURTHER EVALUATION WITH MRI OF THE FOOT MAY BE INDICATED. Assessment & Plan - Diagnosis (1) Left infected gangrenous foot Is this a current diagnosis for this admission?: Yes Plan: Impression: Patient is postoperative day 3 status post debridement left foot with residual infection; may be amenable to aggressive local wound care, dressing changes. Blood sugars still elevated; white blood cell count still elevated I: Cultures are growing staph and strep; appropriate antibiotics being given Recommendations: 1. We will get patient in shower; instructed nurses on wound dressing with packing of distal skin flap with gauze 2. I discussed the care plan with Dr. Francis; we agreed that the patient will need hospitalization for several more days until the foot is lysed; patient may require additional debridement (2) Alcoholism /alcohol abuse Is this a current diagnosis for this admission?: Yes (3) Hypertension Qualifiers: Hypertension type: essential hypertension Qualified Code(s): I10 - Essential (primary) hypertension Is this a current diagnosis for this admission?: Yes (4) Uncontrolled diabetes mellitus Qualifiers: Diabetes mellitus type: type 2 Is this a current diagnosis for this admission?: Yes
[2019-02-09] MEDS: OXYCODONE-ACETAMINOPHEN 5-325 MG TABLET PO PRN ×2 (11:57→21:24)
[2019-02-09] MEDS: CLINDAMYCIN 600 MG/D5W RTU 600 MG/50 ML RTUPB IV SCH ×2 (15:13→21:25)
[2019-02-09] MEDS: RINGERS SOLUTION,LACTATED 1,000 ML IV PRN (15:14)
[2019-02-09] MEDS: DOCUSATE SODIUM 100 MG CAPSULE PO SCH (17:46)
[2019-02-10] MEDS: OXYCODONE-ACETAMINOPHEN 5-325 MG TABLET PO PRN ×3 (06:29→16:34)
[2019-02-10] MEDS: CLINDAMYCIN 600 MG/D5W RTU 600 MG/50 ML RTUPB IV SCH ×3 (06:30→22:52)
[2019-02-10] MEDS: DIAZEPAM 5 MG TABLET PO SCH ×3 (06:30→22:53)
[2019-02-10] MEDS: INSULIN LISPRO 100 UNIT/ML 3 ML VIAL SUBCUT SCH ×4 (08:32→22:53)
[2019-02-10] MEDS: INSULIN NPH (ISOPHANE), HUMAN 100 UNIT/ML 3 ML SUBCUT SCH ×2 (08:33→16:35)
[2019-02-10] MEDS: DOCUSATE SODIUM 100 MG CAPSULE PO SCH ×2 (09:36→17:03)
[2019-02-10] MEDS: FAMOTIDINE 20 MG TABLET PO SCH ×2 (09:36→22:53)
[2019-02-10] MEDS: ENOXAPARIN SODIUM INJ 40 MG/0.4 ML DISP.SYRIN SUBCUT SCH (09:37)
--- NOTE | 2019-02-10 10:17 | PDOC PROGRESS REPORT ---
Subjective Subjective:: I seen patient resting in bed comfortably. He is awake alert oriented is not in pain or distress. I discussed the case with Dr. Klein who recommended several days more of IV antibiotics since patient may need to additional debridement. When patient is ready for discharge he can be sent with oral vancomycin. Reason For Visit: LEFT INFECTED WITH GANGRENOUS FOOT Physical Exam Vital Signs: Temp Pulse Resp BP Pulse Ox 97.5 F 96 22 H 149/83 H 93 02/10/19 07:37 02/10/19 07:37 02/10/19 07:37 02/10/19 07:37 02/10/19 07:37 Intake & Output 02/09/19 02/10/19 02/11/19 06:59 06:59 06:59 Intake Total 2310 2990 50 Output Total 1100 2820 Balance 1210 170 50 Weight 76.8 kg 76.6 kg General appearance: PRESENT: no acute distress Head exam: PRESENT: atraumatic Eye exam: PRESENT: conjunctiva pink Mouth exam: PRESENT: moist Neck exam: ABSENT: carotid bruit, JVD, lymphadenopathy, thyromegaly Respiratory exam: PRESENT: clear to auscultation hollis. ABSENT: rales, rhonchi, wheezes GI/Abdominal exam: PRESENT: normal bowel sounds, soft. ABSENT: distended, guarding, mass, organolmegaly, rebound, tenderness Neurological exam: PRESENT: alert, awake, oriented to time, oriented to situation Psychiatric exam: PRESENT: normal mood Results Laboratory Results: 02/09/19 07:00 02/09/19 07:00 02/06/19 16:27 Foot - Left Gram Stain - Final 02/06/19 16:27 Foot - Left Wound Culture - Final Staphylococcus Xylosus Group B Beta Streptococcus No Anaerobic Organisms 02/06/19 02/06/19 11:00 11:00 Creatine Kinase 28 L CK-MB (CK-2) 0.34 Troponin I < 0.012 Impressions: Chest X-Ray 02/06/19 11:26 IMPRESSION: DIFFUSE INTERSTITIAL SCARRING. NO ACUTE RADIOGRAPHIC FINDING IN THE CHEST. Foot X-Ray 02/06/19 11:28 IMPRESSION: SUPERFICIAL SOFT TISSUE ULCERATION ON THE LATERAL IMAGE. ON THE AP AND OBLIQUE IMAGES THERE IS PATCHY OSTEOPENIA AND INDISTINCT APPEARANCE OF THE CORTEX AT THE BASE OF THE PROXIMAL PHALANX OF THE 3RD AND 4TH TOE. SIMILAR APPEARANCE INVOLVING THE HEAD OF THE 3RD AND 4TH METATARSALS AND POSSIBLY THE 2ND. FINDINGS SUSPICIOUS FOR OSTEOMYELITIS. FURTHER EVALUATION WITH MRI OF THE FOOT MAY BE INDICATED. Assessment & Plan - Diagnosis (1) Left infected gangrenous foot Is this a current diagnosis for this admission?: Yes Plan: I will switch him to clindamycin only (2) Leukocytosis Is this a current diagnosis for this admission?: Yes Plan: Markedly trending down. (3) Uncontrolled diabetes mellitus Qualifiers: Diabetes mellitus type: type 2 Is this a current diagnosis for this admission?: Yes Plan: Continue current regimen (4) Alcoholism /alcohol abuse Is this a current diagnosis for this admission?: Yes Plan: I will put him on alcohol withdrawal protocol. (5) Hypertension Qualifiers: Hypertension type: essential hypertension Qualified Code(s): I10 - Essential (primary) hypertension Is this a current diagnosis for this admission?: Yes
[2019-02-10 10:26] LABS: VANCOMYCIN,TROUGH < 5.0 ug/mL (5.0-20.0)
--- NOTE | 2019-02-10 12:53 | OPERATIVE REPORT E ---
Operative Report NAME: ANN RAMIREZ : 1970 AGE: 48Y DATE OF SURGERY: 02/10/2019 ROOM: 436 PREOPERATIVE DIAGNOSIS: NECROTIC TISSUE POST LEFT SECOND TO FOURTH TOE AMPUTATION SITE. POSTOPERATIVE DIAGNOSIS: NECROTIC TISSUE POST LEFT SECOND TO FOURTH TOE AMPUTATION SITE. PROCEDURE: Sharp debridement of necrotic tissue on the bottom part of the wound on the left foot. SURGEON: LOULOU ESPINOSA M.D. DESCRIPTION OF PROCEDURE: Patient was placed in the supine position and the left foot elevated on a pillow. There appears to be some necrotic tissue in the bottom part of the incision. This was then sharply debrided using scissors and a scalpel. The rest of the wound appears to be starting good granulation tissue. Most of the necrotic tissue was then excised. The patient to continue with wet-to-dry dressings with saline today and possibly require wound-VAC tomorrow. DICTATING PHYSICIAN: LOULOU ESPINOSA M.D. [id number] PHY#: [id number] ID: [id number] JOB#: [id number] ACCT: [id number] cc:LOULOU ESPINOSA M.D. > MTDD
--- NOTE | 2019-02-10 16:20 | PDOC PROGRESS REPORT ---
Subjective Progress Note for:: 02/10/19 Subjective:: Less pains left foot amputation site Reason For Visit: LEFT INFECTED WITH GANGRENOUS FOOT Physical Exam Vital Signs: Temp Pulse Resp BP Pulse Ox 99.0 F 92 20 124/70 94 02/10/19 12:00 02/10/19 12:00 02/10/19 12:00 02/10/19 12:00 02/10/19 12:00 Intake & Output 02/09/19 02/10/19 02/11/19 06:59 06:59 06:59 Intake Total 2310 2990 100 Output Total 1100 2820 Balance 1210 170 100 Weight 76.8 kg 76.6 kg 76.6 kg Exam: Dressings changed. Has a small area of necrosis and debrided at bedside. Rest of wound with starting granulation tissue Results Laboratory Results: 02/09/19 07:00 02/09/19 07:00 02/06/19 02/06/19 11:00 11:00 Creatine Kinase 28 L CK-MB (CK-2) 0.34 Troponin I < 0.012 Impressions: Chest X-Ray 02/06/19 11:26 IMPRESSION: DIFFUSE INTERSTITIAL SCARRING. NO ACUTE RADIOGRAPHIC FINDING IN THE CHEST. Foot X-Ray 02/06/19 11:28 IMPRESSION: SUPERFICIAL SOFT TISSUE ULCERATION ON THE LATERAL IMAGE. ON THE AP AND OBLIQUE IMAGES THERE IS PATCHY OSTEOPENIA AND INDISTINCT APPEARANCE OF THE CORTEX AT THE BASE OF THE PROXIMAL PHALANX OF THE 3RD AND 4TH TOE. SIMILAR APPEARANCE INVOLVING THE HEAD OF THE 3RD AND 4TH METATARSALS AND POSSIBLY THE 2ND. FINDINGS SUSPICIOUS FOR OSTEOMYELITIS. FURTHER EVALUATION WITH MRI OF THE FOOT MAY BE INDICATED. Assessment & Plan - Time Time Spent with patient: 15-24 minutes - Inpatient Certification Medical Necessity: Need for IV Antibiotics, Risk of Complication if Not Cared For in Hospital - Plan Summary Plan Summary: Will place wound vac tomorrow Continue IV antibiotics
[2019-02-10] MEDS: RINGERS SOLUTION,LACTATED 1,000 ML IV PRN (16:35)
[2019-02-10] MEDS: KETOROLAC TROMETHAMINE 10 MG TABLET PO PRN (22:54)
[2019-02-11] MEDS: RINGERS SOLUTION,LACTATED 1,000 ML IV PRN (01:59)
[2019-02-11] MEDS: OXYCODONE-ACETAMINOPHEN 5-325 MG TABLET PO PRN ×3 (02:01→21:59)
[2019-02-11] MEDS: KETOROLAC TROMETHAMINE 10 MG TABLET PO PRN (06:28)
[2019-02-11] MEDS: DIAZEPAM 5 MG TABLET PO SCH ×3 (06:29→21:57)
[2019-02-11] MEDS: CLINDAMYCIN 600 MG/D5W RTU 600 MG/50 ML RTUPB IV SCH ×3 (06:29→21:56)
[2019-02-11] MEDS: INSULIN LISPRO 100 UNIT/ML 3 ML VIAL SUBCUT SCH ×3 (08:06→17:41)
[2019-02-11] MEDS: FAMOTIDINE 20 MG TABLET PO SCH ×2 (10:25→21:57)
[2019-02-11] MEDS: DOCUSATE SODIUM 100 MG CAPSULE PO SCH ×2 (10:25→17:46)
[2019-02-11] MEDS: ENOXAPARIN SODIUM INJ 40 MG/0.4 ML DISP.SYRIN SUBCUT SCH (10:25)
[2019-02-11] MEDS: INSULIN NPH (ISOPHANE), HUMAN 100 UNIT/ML 3 ML SUBCUT SCH ×2 (10:25→17:46)
--- NOTE | 2019-02-11 17:42 | PDOC PROGRESS REPORT ---
Subjective Progress Note for:: 02/11/19 Subjective:: Patient denies any complaints. He would like to be discharged and go home so he can go back to work. Is a returning back to work pretty much the day he is discharged. Denies any serous drainage coming from the wound. His pain is well controlled. Has been afebrile overnight. Reason For Visit: LEFT INFECTED WITH GANGRENOUS FOOT Physical Exam Vital Signs: Temp Pulse Resp BP Pulse Ox 98.8 F 88 19 133/69 H 95 02/11/19 15:54 02/11/19 15:54 02/11/19 15:54 02/11/19 15:54 02/11/19 15:54 Intake & Output 02/10/19 02/11/19 02/12/19 06:59 06:59 06:59 Intake Total 2990 2015 58 Output Total 2820 Balance 170 2015 Weight 76.6 kg 77.6 kg General appearance: PRESENT: no acute distress, cooperative Mouth exam: PRESENT: moist, neck supple Neck exam: PRESENT: lymphadenopathy. ABSENT: JVD, thyromegaly, tracheal deviation Respiratory exam: PRESENT: clear to auscultation hollis. ABSENT: accessory muscle use Cardiovascular exam: PRESENT: RRR Musculoskeletal exam: PRESENT: ambulatory, full ROM - dressing intact, minimal drainage on dressing Neurological exam: PRESENT: alert, oriented to person, oriented to place, oriented to time, oriented to situation Skin exam: PRESENT: dry, warm Results Laboratory Results: 02/09/19 07:00 02/09/19 07:00 02/06/19 13:57 Blood Blood Culture - Final NO GROWTH IN 5 DAYS 02/06/19 12:10 Blood Blood Culture - Final NO GROWTH IN 5 DAYS 02/06/19 02/06/19 11:00 11:00 Creatine Kinase 28 L CK-MB (CK-2) 0.34 Troponin I < 0.012 Impressions: Chest X-Ray 02/06/19 11:26 IMPRESSION: DIFFUSE INTERSTITIAL SCARRING. NO ACUTE RADIOGRAPHIC FINDING IN T HE CHEST. Foot X-Ray 02/06/19 11:28 IMPRESSION: SUPERFICIAL SOFT TISSUE ULCERATION ON THE LATERAL IMAGE. ON THE AP AND OBLIQUE IMAGES THERE IS PATCHY OSTEOPENIA AND INDISTINCT APPEARANCE OF THE CORTEX AT THE BASE OF THE PROXIMAL PHALANX OF THE 3RD AND 4TH TOE. SIMILAR APPEARANCE INVOLVING THE HEAD OF THE 3RD AND 4TH METATARSALS AND POSSIBLY THE 2ND. FINDINGS SUSPICIOUS FOR OSTEOMYELITIS. FURTHER EVALUATION WITH MRI OF THE FOOT MAY BE INDICATED. Assessment and Plan - Diagnosis (1) Left infected gangrenous foot Is this a current diagnosis for this admission?: Yes Plan: 02/11/19 17:40 Continue clindamycin based on cultures and sensitivity antibiotic is appropriate. Continue daily dressing changes. (2) Alcoholism /alcohol abuse Is this a current diagnosis for this admission?: Yes Plan: 02/11/19 17:42 Continue CIWA scores. (3) Hypertension Qualifiers: Hypertension type: essential hypertension Qualified Code(s): I10 - Essential (primary) hypertension Is this a current diagnosis for this admission?: Yes Plan: 02/11/19 17:41 Blood pressure has been well controlled during his admission. He will need a short-term follow-up with his PCP after discharge to ensure compliance with his blood pressure medications. (4) Leukocytosis Is this a current diagnosis for this admission?: Yes Plan: 02/11/19 17:41 Slight increase in leukocytosis this morning we will continue to trend see how he does has been afebrile overnight so we will continue with current antibiotics. (5) Uncontrolled diabetes mellitus Qualifiers: Diabetes mellitus type: type 2 Is this a current diagnosis for this admission?: Yes Plan: 02/11/19 17:41 Continue sliding scale and fingerstick glucose will monitor. She will need a short-term follow-up with his PCP to maintain control of his diabetes after disc harge. - Time Time Spent with patient: 25-34 minutes Medications reviewed and adjusted accordingly: Yes Anticipated discharge: Home
[2019-02-12] MEDS: INSULIN LISPRO 100 UNIT/ML 3 ML VIAL SUBCUT SCH ×5 (01:24→21:50)
--- NOTE | 2019-02-12 01:55 | PDOC PROGRESS REPORT ---
Subjective Progress Note for:: 02/11/19 Subjective:: no pains Reason For Visit: LEFT INFECTED WITH GANGRENOUS FOOT Physical Exam Vital Signs: Temp Pulse Resp BP Pulse Ox 101.7 F H 104 H 18 138/75 H 91 L 02/11/19 23:55 02/11/19 23:55 02/11/19 23:55 02/11/19 23:55 02/11/19 23:55 Intake & Output 02/10/19 02/11/19 02/12/19 06:59 06:59 06:59 Intake Total 2990 2015 1681 Output Total 2820 Balance 170 2015 1681 Weight 76.6 kg 77.6 kg Exam: left foot remains swollen but warm. Debrided some necrotic tissue. Foot does not look to be getting better May benefit with wound vac. Will re-evaluate tomorrow Results Laboratory Results: 02/09/19 07:00 02/09/19 07:00 02/06/19 13:57 Blood Blood Culture - Final NO GROWTH IN 5 DAYS 02/06/19 12:10 Blood Blood Culture - Final NO GROWTH IN 5 DAYS 02/06/19 02/06/19 11:00 11:00 Creatine Kinase 28 L CK-MB (CK-2) 0.34 Troponin I < 0.012 Impressions: Chest X-Ray 02/06/19 11:26 IMPRESSION: DIFFUSE INTERSTITIAL SCARRING. NO ACUTE RADIOGRAPHIC FINDING IN THE CHEST. Foot X-Ray 02/06/19 11:28 IMPRESSION: SUPERFICIAL SOFT TISSUE ULCERATION ON THE LATERAL IMAGE. ON THE AP AND OBLIQUE IMAGES THERE IS PATCHY OSTEOPENIA AND INDISTINCT APPEARANCE OF THE CORTEX AT THE BASE OF THE PROXIMAL PHALANX OF THE 3RD AND 4TH TOE. SIMILAR APPEARANCE INVOLVING THE HEAD OF THE 3RD AND 4TH METATARSALS AND POSSIBLY THE 2ND. FINDINGS SUSPICIOUS FOR OSTEOMYELITIS. FURTHER EVALUATION WITH MRI OF THE FOOT MAY BE INDICATED.
[2019-02-12] MEDS: DIAZEPAM 5 MG TABLET PO SCH ×3 (06:21→21:46)
[2019-02-12] MEDS: OXYCODONE-ACETAMINOPHEN 5-325 MG TABLET PO PRN ×4 (06:21→21:46)
[2019-02-12] MEDS: CLINDAMYCIN 600 MG/D5W RTU 600 MG/50 ML RTUPB IV SCH ×3 (06:21→21:46)
[2019-02-12 07:16] LABS: ABSOLUTE BASOPHILS # (AUTO) 0.1 10^3/uL (0.0-0.2); ABSOLUTE EOSINOPHILS # (AUTO) 0.2 10^3/uL (0.0-0.6); ABSOLUTE LYMPHOCYTES (AUTO) 1.3 10^3/uL (0.5-4.7); ABSOLUTE MONOCYTES (AUTO) 1.2 10^3/uL (0.1-1.4); ABSOLUTE NEUT (AUTO) 14.1 10^3/uL (1.7-8.2); BASOPHILS % (AUTO) 0.3 % (0-2); EOSINOPHILS % (AUTO) 1.2 % (0-6); HEMATOCRIT 29.7 % (37.9-51.0); HEMOGLOBIN 10.3 g/dL (13.5-17.0); LYMPHOCYTES % (AUTO) 7.7 % (13-45); MEAN CORPUSCULAR HEMOGLOBIN 34.6 pg (27.0-33.4); MEAN CORPUSCULAR HGB CONC 34.6 g/dL (32.0-36.0); MEAN CORPUSCULAR VOLUME 100 fl (80-97); MONOCYTES % (AUTO) 7.2 % (3-13); PLATELET COUNT 513 10^3/uL (150-450); RED BLOOD COUNT 2.97 10^6/uL (4.35-5.55); RED CELL DISTRIBUTION WIDTH 12.5 % (11.5-14.0); SEGMENTED NEUTROPHILS % (AUTO) 83.6 % (42-78); TOTAL CELLS COUNTED % (AUTO) 100 %; WHITE BLOOD COUNT 16.8 10^3/uL (4.0-10.5)
[2019-02-12 07:43] LABS: ALANINE AMINOTRANSFERASE 25 U/L (21-72); ALBUMIN 2.3 g/dL (3.5-5.0); ALKALINE PHOSPHATASE 128 U/L (38-126); ANION GAP 8 (5-19); ASPARTATE AMINO TRANSFERASE 21 U/L (17-59); BILIRUBIN,DIRECT 0.2 mg/dL (0.0-0.4); BILIRUBIN,TOTAL 0.4 mg/dL (0.2-1.3); BLOOD UREA NITROGEN 13 mg/dL (7-20); CALCIUM 8.6 mg/dL (8.4-10.2); CARBON DIOXIDE 26 mmol/L (22-30); CHLORIDE 101 mmol/L (98-107); GLUCOSE 181 mg/dL (75-110); POTASSIUM 4.4 mmol/L (3.6-5.0); SODIUM 135.4 mmol/L (137-145); TOTAL PROTEIN 6.4 g/dL (6.3-8.2)
[2019-02-12] MEDS: DOCUSATE SODIUM 100 MG CAPSULE PO SCH ×2 (09:14→18:08)
[2019-02-12] MEDS: INSULIN NPH (ISOPHANE), HUMAN 100 UNIT/ML 3 ML SUBCUT SCH ×2 (09:14→18:09)
[2019-02-12] MEDS: ENOXAPARIN SODIUM INJ 40 MG/0.4 ML DISP.SYRIN SUBCUT SCH (09:14)
[2019-02-12] MEDS: FAMOTIDINE 20 MG TABLET PO SCH ×2 (09:14→21:47)
--- NOTE | 2019-02-12 13:50 | PDOC PROGRESS REPORT ---
Subjective Progress Note for:: 02/12/19 Subjective:: Patient denies any complaints. He would like to be discharged and go home so he can go back to work. Is a returning back to work pretty much the day he is discharged. Denies any serous drainage coming from the wound. His pain is well controlled. Has been afebrile overnight. Reason For Visit: LEFT INFECTED WITH GANGRENOUS FOOT Physical Exam Vital Signs: Temp Pulse Resp BP Pulse Ox 98.2 F 82 16 113/64 97 02/12/19 12:00 02/12/19 12:00 02/12/19 12:00 02/12/19 12:00 02/12/19 12:00 Intake & Output 02/11/19 02/12/19 02/13/19 06:59 06:59 06:59 Intake Total 2015 168 50 Balance 2015 1681 50 Weight 77.6 kg 75.3 kg General appearance: PRESENT: no acute distress, cooperative Eye exam: ABSENT: scleral icterus Neck exam: ABSENT: JVD, thyromegaly, tracheal deviation Cardiovascular exam: PRESENT: RRR. ABSENT: gallop, rubs GI/Abdominal exam: PRESENT: normal bowel sounds, soft. ABSENT: tenderness Extremities exam: ABSENT: pedal edema Neurological exam: PRESENT: alert, oriented to person, oriented to place, oriented to time, oriented to situation Skin exam: PRESENT: dry, normal color, warm Results Laboratory Results: 02/12/19 06:53 02/12/19 06:53 02/12/19 02/12/19 06:53 06:53 WBC 16.8 H RBC 2.97 L Hgb 10.3 L Hct 29.7 L MCV 100 H MCH 34.6 H MCHC 34.6 RDW 12.5 Plt Count 513 H Seg Neutrophils % 83.6 H Lymphocytes % 7.7 L Monocytes % 7.2 Eosinophils % 1.2 Basophils % 0.3 Absolute Neutrophils 14.1 H Absolute Lymphocytes 1.3 Absolute Monocytes 1.2 Absolute Eosinophils 0.2 Absolute Basophils 0.1 Sodium 135.4 L Potassium 4.4 Chloride 101 Carbon Dioxide 26 Anion Gap 8 BUN 13 Creatinine 0.99 Est GFR ( Amer) > 60 Est GFR (Non-Af Amer) > 60 Glucose 181 H Calcium 8.6 Total Bilirubin 0.4 AST 21 ALT 25 Alkaline Phosphatase 128 H Total Protein 6.4 Albumin 2.3 L 02/06/19 13:57 Blood Blood Culture - Final NO GROWTH IN 5 DAYS 02/06/19 12:10 Blood Blood Culture - Final NO GROWTH IN 5 DAYS 02/06/19 02/06/19 11:00 11:00 Creatine Kinase 28 L CK-MB (CK-2) 0.34 Troponin I < 0.012 Impressions: Chest X-Ray 02/06/19 11:26 IMPRESSION: DIFFUSE INTERSTITIAL SCARRING. NO ACUTE RADIOGRAPHIC FINDING IN THE CHEST. Foot X-Ray 02/06/19 11:28 IMPRESSION: SUPERFICIAL SOFT TISSUE ULCERATION ON THE LATERAL IMAGE. ON THE AP AND OBLIQUE IMAGES THERE IS PATCHY OSTEOPENIA AND INDISTINCT APPEARANCE OF THE CORTEX AT THE BASE OF THE PROXIMAL PHALANX OF THE 3RD AND 4TH TOE. SIMILAR APPEARANCE INVOLVING THE HEAD OF THE 3RD AND 4TH METATARSALS AND POSSIBLY THE 2ND. FINDINGS SUSPICIOUS FOR OSTEOMYELITIS. FURTHER EVALUATION WITH MRI OF THE FOOT MAY BE INDICATED. Assessment and Plan - Diagnosis (1) Left infected gangrenous foot Is this a current diagnosis for this admission?: Yes Plan: 02/11/19 17:40 Continue clindamycin based on cultures and sensitivity antibiotic is appropriate. Continue daily dressing changes. (2) Alcoholism /alcohol abuse Is this a current diagnosis for this admission?: Yes Plan: 02/11/19 17:42 Continue CIWA scores. (3) Hypertension Qualifiers: Hypertension type: essential hypertension Qualified Code(s): I10 - Essential (primary) hypertension Is this a current diagnosis for this admission?: Yes Plan: 02/11/19 17:41 Blood pressure has been well controlled during his admission. He will need a short-term follow-up with his PCP after discharge to ensure compliance with his blood pressure medications. (4) Leukocytosis Is this a current diagnosis for this admission?: Yes Plan: 02/11/19 17:41 Slight increase in leukocytosis this morning we will continue to trend see how he does has been afebrile overnight so we will continue with current antibiotics. (5) Uncontrolled diabetes mellitus Qualifiers: Diabetes mellitus type: type 2 Is this a current diagnosis for this admission?: Yes Plan: 02/11/19 17:41 Continue sliding scale and fingerstick glucose will monitor. She will need a short-term follow-up with his PCP to maintain control of his diabetes after discharge. - Time Time Spent with patient: 25-34 minutes Medications reviewed and adjusted accordingly: Yes
[2019-02-12] MEDS ORDERED: DEXTROSE 40% GEL 15 GM TUBE PO PRN ×2 (14:56)
[2019-02-12] MEDS ORDERED: GLUCAGON,HUMAN RECOMB 1 MG INJ SUBCUT PRN (14:56)
[2019-02-12] MEDS ORDERED: DEXTROSE 50%-WATER 25 GM/50 ML DISP.SYRIN IV PRN ×2 (14:56)
[2019-02-12] MEDS: RINGERS SOLUTION,LACTATED 1,000 ML IV PRN (18:10)
--- NOTE | 2019-02-12 19:36 | PDOC PROGRESS REPORT ---
Subjective Progress Note for:: 02/12/19 Reason For Visit: LEFT INFECTED WITH GANGRENOUS FOOT Physical Exam Vital Signs: Temp Pulse Resp BP Pulse Ox 99.8 F 105 H 18 137/80 H 97 02/12/19 07:47 02/12/19 07:47 02/12/19 07:47 02/12/19 07:47 02/12/19 07:47 Intake & Output 02/11/19 02/12/19 02/13/19 06:59 06:59 06:59 Intake Total 2015 1681 Balance 2015 1681 Weight 77.6 kg 75.3 kg Results Laboratory Results: 02/12/19 06:53 02/12/19 06:53 02/12/19 02/12/19 06:53 06:53 WBC 16.8 H RBC 2.97 L Hgb 10.3 L Hct 29.7 L MCV 100 H MCH 34.6 H MCHC 34.6 RDW 12.5 Plt Count 513 H Seg Neutrophils % 83.6 H Lymphocytes % 7.7 L Monocytes % 7.2 Eosinophils % 1.2 Basophils % 0.3 Absolute Neutrophils 14.1 H Absolute Lymphocytes 1.3 Absolute Monocytes 1.2 Absolute Eosinophils 0.2 Absolute Basophils 0.1 Sodium 135.4 L Potassium 4.4 Chloride 101 Carbon Dioxide 26 Anion Gap 8 BUN 13 Creatinine 0.99 Est GFR ( Amer) > 60 Est GFR (Non-Af Amer) > 60 Glucose 181 H Calcium 8.6 Total Bilirubin 0.4 AST 21 ALT 25 Alkaline Phosphatase 128 H Total Protein 6.4 Albumin 2.3 L 02/06/19 13:57 Blood Blood Culture - Final NO GROWTH IN 5 DAYS 02/06/19 12:10 Blood Blood Culture - Final NO GROWTH IN 5 DAYS 02/06/19 02/06/19 11:00 11:00 Creatine Kinase 28 L CK-MB (CK-2) 0.34 Troponin I < 0.012 Impressions: Chest X-Ray 02/06/19 11:26 IMPRESSION: DIFFUSE INTERSTITIAL SCARRING. NO ACUTE RADIOGRAPHIC FINDING IN THE CHEST. Foot X-Ray 02/06/19 11:28 IMPRESSION: SUPERFICIAL SOFT TISSUE ULCERATION ON THE LATERAL IMAGE. ON THE AP AND OBLIQUE IMAGES THERE IS PATCHY OSTEOPENIA AND INDISTINCT APPEARANCE OF THE CORTEX AT THE BASE OF THE PROXIMAL PHALANX OF THE 3RD AND 4TH TOE. SIMILAR APPEARANCE INVOLVING THE HEAD OF THE 3RD AND 4TH METATARSALS AND POSSIBLY THE 2ND. FINDINGS SUSPICIOUS FOR OSTEOMYELITIS. FURTHER EVALUATION WITH MRI OF THE FOOT MAY BE INDICATED. Assessment & Plan - Diagnosis (1) Left infected gangrenous foot Is this a current diagnosis for this admission?: Yes (2) Uncontrolled diabetes mellitus Qualifiers: Diabetes mellitus type: type 2 Is this a current diagnosis for this admission?: Yes - Plan Summary Plan Summary: 48 y/o diabetic male s/p left toe amputation. The patient has continued necrosis of tissue of the foot as well as purulent material emanating from the dorsum of the foot. I believe the patient's foot is unsalvageable, and he will require below-knee amputation. The patient is unwilling to agree to this. At the very least, the patient will require further debridement for all the necrotic tissue and the infected fluid emanating from the dorsum of the foot. I will make the patient n.p.o. after midnight. Plan for further incision, drainage, and debridement tomorrow.
[2019-02-13] MEDS: CLINDAMYCIN 600 MG/D5W RTU 600 MG/50 ML RTUPB IV SCH ×3 (06:15→23:13)
[2019-02-13] MEDS: DIAZEPAM 5 MG TABLET PO SCH (06:15)
[2019-02-13] MEDS: OXYCODONE-ACETAMINOPHEN 5-325 MG TABLET PO PRN ×3 (06:21→23:22)
[2019-02-13] MEDS: INSULIN NPH (ISOPHANE), HUMAN 100 UNIT/ML 3 ML SUBCUT SCH ×2 (11:45→17:47)
[2019-02-13] MEDS: INSULIN LISPRO 100 UNIT/ML 3 ML VIAL SUBCUT SCH ×4 (11:45→23:14)
[2019-02-13] MEDS: FAMOTIDINE 20 MG TABLET PO SCH ×2 (11:49→23:13)
[2019-02-13] MEDS: DOCUSATE SODIUM 100 MG CAPSULE PO SCH ×2 (11:49→17:47)
[2019-02-13] MEDS: ENOXAPARIN SODIUM INJ 40 MG/0.4 ML DISP.SYRIN SUBCUT SCH (11:50)
--- NOTE | 2019-02-13 12:00 | PDOC PROGRESS REPORT ---
Subjective Progress Note for:: 02/13/19 Subjective:: Denies significant pains Reason For Visit: LEFT INFECTED WITH GANGRENOUS FOOT Physical Exam Vital Signs: Temp Pulse Resp BP Pulse Ox 98.5 F 96 18 134/67 H 96 02/13/19 08:00 02/13/19 08:00 02/13/19 08:00 02/13/19 08:00 02/13/19 08:00 Intake & Output 02/12/19 02/13/19 02/14/19 06:59 06:59 06:59 Intake Total 1682 2690 50 Balance 1682 2690 50 Weight 75.3 kg 75.3 kg Exam: Left foot wound looks essentially same. Upper wound with starting granulation but prox side has some dusky discoloration. Refuses any BKA. Told me he will "kill himself" if gets an amputation Results Laboratory Results: 02/12/19 06:53 02/12/19 06:53 02/06/19 02/06/19 11:00 11:00 Creatine Kinase 28 L CK-MB (CK-2) 0.34 Troponin I < 0.012 Impressions: Chest X-Ray 02/06/19 11:26 IMPRESSION: DIFFUSE INTERSTITIAL SCARRING. NO ACUTE RADIOGRAPHIC FINDING IN THE CHEST. Foot X-Ray 02/06/19 11:28 IMPRESSION: SUPERFICIAL SOFT TISSUE ULCERATION ON THE LATERAL IMAGE. ON THE AP AND OBLIQUE IMAGES THERE IS PATCHY OSTEOPENIA AND INDISTINCT APPEARANCE OF THE CORTEX AT THE BASE OF THE PROXIMAL PHALANX OF THE 3RD AND 4TH TOE. SIMILAR APPEARANCE INVOLVING THE HEAD OF THE 3RD AND 4TH METATARSALS AND POSSIBLY THE 2ND. FINDINGS SUSPICIOUS FOR OSTEOMYELITIS. FURTHER EVALUATION WITH MRI OF THE FOOT MAY BE INDICATED. Assessment & Plan - Time Time Spent with patient: 15-24 minutes - Inpatient Certification Medical Necessity: Need for IV Antibiotics, Risk of Complication if Not Cared For in Hospital - Plan Summary Plan Summary: Try wound vac. This will give him the best non surgical therapy at this time then monitor wound status closely Continue antibiotics
--- NOTE | 2019-02-13 18:51 | PDOC PROGRESS REPORT ---
Subjective Progress Note for:: 02/13/19 Subjective:: No adverse events overnight. No new complaints. Pain is been well controlled. Eating and drinking without difficulty. He said he did not take his diabetes medicine for 3 or 4 years for "stupid reasons." He feels like he basically ignored the problem with his foot because he did not want to admit anything was wrong. Reason For Visit: LEFT INFECTED WITH GANGRENOUS FOOT Physical Exam Vital Signs: Temp Pulse Resp BP Pulse Ox 98.9 F 95 18 140/68 H 95 02/13/19 16:00 02/13/19 16:00 02/13/19 16:00 02/13/19 16:00 02/13/19 16:00 Intake & Output 02/12/19 02/13/19 02/14/19 06:59 06:59 06:59 Intake Total 1682 2690 1150 Balance 1682 2690 1150 Weight 75.3 kg 75.3 kg General appearance: PRESENT: no acute distress, cooperative Eye exam: ABSENT: scleral icterus Neck exam: ABSENT: JVD, thyromegaly, tracheal deviation Cardiovascular exam: PRESENT: RRR. ABSENT: gallop, rubs GI/Abdominal exam: PRESENT: normal bowel sounds, soft. ABSENT: tenderness Extremities exam: He has a wound VAC on his foot over the area where his middle 3 toes should be. There is an area of denuded skin laterally with eschar, as well as an area of denuded skin on the dorsal aspect of the left foot. Neurological exam: PRESENT: alert, oriented to person, oriented to place, oriented to time, oriented to situation Skin exam: PRESENT: dry, normal color, warm Results Laboratory Results: 02/12/19 06:53 02/12/19 06:53 02/06/19 02/06/19 11:00 11:00 Creatine Kinase 28 L CK-MB (CK-2) 0.34 Troponin I < 0.012 Impressions: Chest X-Ray 02/06/19 11:26 IMPRESSION: DIFFUSE INTERSTITIAL SCARRING. NO ACUTE RADIOGRAPHIC FINDING IN THE CHEST. Foot X-Ray 02/06/19 11:28 IMPRESSION: SUPERFICIAL SOFT TISSUE ULCERATION ON THE LATERAL IMAGE. ON THE AP AND OBLIQUE IMAGES THERE IS PATCHY OSTEOPENIA AND INDISTINCT APPEARANCE OF THE CORTEX AT THE BASE OF THE PROXIMAL PHALANX OF THE 3RD AND 4TH TOE. SIMILAR APPEARANCE INVOLVING THE HEAD OF THE 3RD AND 4TH METATARSALS AND POSSIBLY THE 2ND. FINDINGS SUSPICIOUS FOR OSTEOMYELITIS. FURTHER EVALUATION WITH MRI OF THE FOOT MAY BE INDICATED. Assessment and Plan - Diagnosis (1) Left infected gangrenous foot Is this a current diagnosis for this admission?: Yes Plan: Wound VAC is in place. Antibiotics are ordered. Surgical consult has already debrided the foot once, and was possibly going to do it again. Surgery has recommended that he have a below the knee irritation but the patient is refusing. - Time Time Spent with patient: 25-34 minutes
[2019-02-14] MEDS: CLINDAMYCIN 600 MG/D5W RTU 600 MG/50 ML RTUPB IV SCH ×3 (06:03→22:55)
[2019-02-14] MEDS: OXYCODONE-ACETAMINOPHEN 5-325 MG TABLET PO PRN ×3 (06:05→18:03)
[2019-02-14] MEDS: INSULIN LISPRO 100 UNIT/ML 3 ML VIAL SUBCUT SCH ×4 (08:10→22:55)
[2019-02-14] MEDS: INSULIN NPH (ISOPHANE), HUMAN 100 UNIT/ML 3 ML SUBCUT SCH ×2 (08:14→17:00)
[2019-02-14] MEDS: ENOXAPARIN SODIUM INJ 40 MG/0.4 ML DISP.SYRIN SUBCUT SCH (10:00)
[2019-02-14] MEDS: DOCUSATE SODIUM 100 MG CAPSULE PO SCH ×2 (10:00→17:00)
[2019-02-14] MEDS: FAMOTIDINE 20 MG TABLET PO SCH ×2 (10:00→22:55)
[2019-02-14 10:39] LABS: HEMATOCRIT 29.9 % (37.9-51.0); HEMOGLOBIN 10.3 g/dL (13.5-17.0); MEAN CORPUSCULAR HEMOGLOBIN 34.7 pg (27.0-33.4); MEAN CORPUSCULAR HGB CONC 34.3 g/dL (32.0-36.0); MEAN CORPUSCULAR VOLUME 101 fl (80-97); PLATELET COUNT 526 10^3/uL (150-450); RED BLOOD COUNT 2.96 10^6/uL (4.35-5.55); RED CELL DISTRIBUTION WIDTH 12.7 % (11.5-14.0); WHITE BLOOD COUNT 11.7 10^3/uL (4.0-10.5)
[2019-02-14 10:55] LABS: ANION GAP 10 (5-19); BLOOD UREA NITROGEN 16 mg/dL (7-20); CALCIUM 9.1 mg/dL (8.4-10.2); CARBON DIOXIDE 26 mmol/L (22-30); CHLORIDE 101 mmol/L (98-107); GLUCOSE 196 mg/dL (75-110); POTASSIUM 4.8 mmol/L (3.6-5.0); SODIUM 136.7 mmol/L (137-145)
--- NOTE | 2019-02-14 18:40 | PDOC PROGRESS REPORT ---
Subjective Progress Note for:: 02/14/19 Subjective:: No adverse events overnight. He is still adamant that he does not want his foot amputated. 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 He became very emotional at the idea of not being able to work. Reason For Visit: LEFT INFECTED WITH GANGRENOUS FOOT Physical Exam Vital Signs: Temp Pulse Resp BP Pulse Ox 98.8 F 95 18 132/75 H 98 02/14/19 16:00 02/14/19 16:00 02/14/19 16:00 02/14/19 16:00 02/14/19 16:00 Intake & Output 02/13/19 02/14/19 02/15/19 06:59 06:59 06:59 Intake Total 2690 1680 1150 Output Total 500 Balance 2690 1180 1150 Weight 75.3 kg 75.3 kg 75.3 kg General appearance: PRESENT: no acute distress, cooperative Eye exam: ABSENT: scleral icterus Neck exam: ABSENT: JVD, thyromegaly, tracheal deviation Cardiovascular exam: PRESENT: RRR. ABSENT: gallop, rubs GI/Abdominal exam: PRESENT: normal bowel sounds, soft. ABSENT: tenderness Extremities exam: He has a wound VAC on his foot over the area where his middle 3 toes should be. There is an area of denuded skin laterally with eschar, as well as an area of denuded skin on the dorsal aspect of the left foot. Neurological exam: PRESENT: alert, oriented to person, oriented to place, oriented to time, oriented to situation Skin exam: PRESENT: dry, normal color, warm Results Laboratory Results: 02/14/19 09:32 02/14/19 09:32 02/14/19 02/14/19 09:32 09:32 WBC 11.7 H RBC 2.96 L Hgb 10.3 L Hct 29.9 L MCV 101 H MCH 34.7 H MCHC 34.3 RDW 12.7 Plt Count 526 H Sodium 136.7 L Potassium 4.8 Chloride 101 Carbon Dioxide 26 Anion Gap 10 BUN 16 Creatinine 1.22 Est GFR ( Amer) > 60 Est GFR (Non-Af Amer) > 60 Glucose 196 H Calcium 9.1 02/06/19 02/06/19 11:00 11:00 Creatine Kinase 28 L CK-MB (CK-2) 0.34 Troponin I < 0.012 Impressions: Chest X-Ray 02/06/19 11:26 IMPRESSION: DIFFUSE INTERSTITIAL SCARRING. NO ACUTE RADIOGRAPHIC FINDING IN THE CHEST. Foot X-Ray 02/06/19 11:28 IMPRESSION: SUPERFICIAL SOFT TISSUE ULCERATION ON THE LATERAL IMAGE. ON THE AP AND OBLIQUE IMAGES THERE IS PATCHY OSTEOPENIA AND INDISTINCT APPEARANCE OF THE CORTEX AT THE BASE OF THE PROXIMAL PHALANX OF THE 3RD AND 4TH TOE. SIMILAR APPEARANCE INVOLVING THE HEAD OF THE 3RD AND 4TH METATARSALS AND POSSIBLY THE 2ND. FINDINGS SUSPICIOUS FOR OSTEOMYELITIS. FURTHER EVALUATION WITH MRI OF THE FOOT MAY BE INDICATED. Assessment and Plan - Diagnosis (1) Left infected gangrenous foot Is this a current diagnosis for this admission?: Yes Plan: Wound VAC is in place. Antibiotics are ordered. Surgical consult has already debrided the foot once, and was possibly going to do it again. Surgery has recommended that he have a below the knee irritation but the patient is refusing. He works full-time but does not have insurance, and we are trying to see if we can put him on oral antibiotics and somehow get a wound VAC for him. They we will have to arrange the follow-up that he will need. - Time Time Spent with patient: 25-34 minutes
--- NOTE | 2019-02-14 19:26 | PDOC PROGRESS REPORT ---
Subjective Progress Note for:: 02/14/19 Subjective:: Denies significant pains Reason For Visit: LEFT INFECTED WITH GANGRENOUS FOOT Physical Exam Vital Signs: Temp Pulse Resp BP Pulse Ox 98.8 F 95 18 132/75 H 98 02/14/19 16:00 02/14/19 16:00 02/14/19 16:00 02/14/19 16:00 02/14/19 16:00 Intake & Output 02/13/19 02/14/19 02/15/19 06:59 06:59 06:59 Intake Total 2690 1680 1150 Output Total 500 Balance 2690 1180 1150 Weight 75.3 kg 75.3 kg 75.3 kg Exam: Wound vac on the left foot in place. Left foot remains warm and less edematous Results Laboratory Results: 02/14/19 09:32 02/14/19 09:32 02/14/19 02/14/19 09:32 09:32 WBC 11.7 H RBC 2.96 L Hgb 10.3 L Hct 29.9 L MCV 101 H MCH 34.7 H MCHC 34.3 RDW 12.7 Plt Count 526 H Sodium 136.7 L Potassium 4.8 Chloride 101 Carbon Dioxide 26 Anion Gap 10 BUN 16 Creatinine 1.22 Est GFR ( Amer) > 60 Est GFR (Non-Af Amer) > 60 Glucose 196 H Calcium 9.1 02/06/19 02/06/19 11:00 11:00 Creatine Kinase 28 L CK-MB (CK-2) 0.34 Troponin I < 0.012 Impressions: Chest X-Ray 02/06/19 11:26 IMPRESSION: DIFFUSE INTERSTITIAL SCARRING. NO ACUTE RADIOGRAPHIC FINDING IN THE CHEST. Foot X-Ray 02/06/19 11:28 IMPRESSION: SUPERFICIAL SOFT TISSUE ULCERATION ON THE LATERAL IMAGE. ON THE AP AND OBLIQUE IMAGES THERE IS PATCHY OSTEOPENIA AND INDISTINCT APPEARANCE OF THE CORTEX AT THE BASE OF THE PROXIMAL PHALANX OF THE 3RD AND 4TH TOE. SIMILAR APPEARANCE INVOLVING THE HEAD OF THE 3RD AND 4TH METATARSALS AND POSSIBLY THE 2ND. FINDINGS SUSPICIOUS FOR OSTEOMYELITIS. FURTHER EVALUATION WITH MRI OF THE FOOT MAY BE INDICATED. Assessment & Plan - Time Time Spent with patient: 15-24 minutes - Inpatient Certification Medical Necessity: Need for IV Antibiotics, Risk of Complication if Not Cared For in Hospital - Plan Summary Plan Summary: Continue IV antibiotics Day 2 of wound vac. Can replace VAC over the weekend
[2019-02-15] MEDS: CLINDAMYCIN 600 MG/D5W RTU 600 MG/50 ML RTUPB IV SCH ×3 (05:46→22:23)
[2019-02-15] MEDS: OXYCODONE-ACETAMINOPHEN 5-325 MG TABLET PO PRN ×3 (05:48→22:23)
[2019-02-15] MEDS: INSULIN LISPRO 100 UNIT/ML 3 ML VIAL SUBCUT SCH ×4 (07:41→22:24)
[2019-02-15] MEDS: INSULIN NPH (ISOPHANE), HUMAN 100 UNIT/ML 3 ML SUBCUT SCH ×2 (07:42→17:08)
[2019-02-15] MEDS: DOCUSATE SODIUM 100 MG CAPSULE PO SCH ×2 (11:03→17:45)
[2019-02-15] MEDS: FAMOTIDINE 20 MG TABLET PO SCH ×2 (11:03→22:23)
[2019-02-15] MEDS: ENOXAPARIN SODIUM INJ 40 MG/0.4 ML DISP.SYRIN SUBCUT SCH (11:03)
--- NOTE | 2019-02-15 13:33 | PDOC PROGRESS REPORT ---
Subjective Progress Note for:: 02/15/19 Reason For Visit: LEFT INFECTED WITH GANGRENOUS FOOT Physical Exam Vital Signs: Temp Pulse Resp BP Pulse Ox 98.3 F 87 16 144/78 H 97 02/15/19 08:08 02/15/19 08:08 02/15/19 08:08 02/15/19 08:08 02/15/19 08:08 Intake & Output 02/14/19 02/15/19 02/16/19 06:59 06:59 06:59 Intake Total 1680 1350 Output Total 500 Balance 1180 1350 Weight 75.3 kg 75.3 kg General appearance: PRESENT: no acute distress Head exam: PRESENT: normocephalic Mouth exam: PRESENT: moist Neck exam: PRESENT: full ROM Respiratory exam: PRESENT: clear to auscultation hollis Cardiovascular exam: PRESENT: RRR Pulses: PRESENT: +1 pedal pulses bilateral GI/Abdominal exam: PRESENT: soft Rectal exam: PRESENT: deferred Extremities exam: PRESENT: +1 edema Neurological exam: PRESENT: alert, awake, oriented to person, oriented to time, oriented to situation Psychiatric exam: PRESENT: appropriate affect Focused psych exam: ABSENT: internal stimuli - left foot with wound vac in p lace, removed areas of necrosis over sub tissue medial aspect of 1st metatarsal debrided, but with min bleeding despite palp dp puse Results Laboratory Results: 02/14/19 09:32 02/14/19 09:32 02/06/19 02/06/19 11:00 11:00 Creatine Kinase 28 L CK-MB (CK-2) 0.34 Troponin I < 0.012 Impressions: Chest X-Ray 02/06/19 11:26 IMPRESSION: DIFFUSE INTERSTITIAL SCARRING. NO ACUTE RADIOGRAPHIC FINDING IN THE CHEST. Foot X-Ray 02/06/19 11:28 IMPRESSION: SUPERFICIAL SOFT TISSUE ULCERATION ON THE LATERAL IMAGE. ON THE AP AND OBLIQUE IMAGES THERE IS PATCHY OSTEOPENIA AND INDISTINCT APPEARANCE OF THE CORTEX AT THE BASE OF THE PROXIMAL PHALANX OF THE 3RD AND 4TH TOE. SIMILAR APPEARANCE INVOLVING THE HEAD OF THE 3RD AND 4TH METATARSALS AND POSSIBLY THE 2ND. FINDINGS SUSPICIOUS FOR OSTEOMYELITIS. FURTHER EVALUATION WITH MRI OF THE FOOT MAY BE INDICATED. Assessment & Plan - Diagnosis (1) Left infected gangrenous foot Is this a current diagnosis for this admission?: Yes - Plan Summary Plan Summary: wound vac with min effect, removed medial aspect of forefoot debrided of necrotic tissue back to pink tissue, howver min bleeding I suspect pt will need amputation of 1st toe, however this will leave him with only 5th toe there he would benifit with forefoot amputation] currently he is refusiing wll dc wound vac for now and cont wtih tid dressing changes will reeval in am will cont to discuss forefoot amp with pt.
--- NOTE | 2019-02-15 16:28 | PDOC PROGRESS REPORT ---
Subjective Progress Note for:: 02/15/19 Subjective:: No adverse events overnight. No new complaints. No fevers. He continues to refuse amputation of was left of his foot. Reason For Visit: LEFT INFECTED WITH GANGRENOUS FOOT Physical Exam Vital Signs: Temp Pulse Resp BP Pulse Ox 98.1 F 89 16 140/78 H 96 02/15/19 11:37 02/15/19 11:37 02/15/19 11:37 02/15/19 11:37 02/15/19 11:37 Intake & Output 02/14/19 02/15/19 02/16/19 06:59 06:59 06:59 Intake Total 1680 1350 50 Output Total 500 Balance 1180 1350 50 Weight 75.3 kg 75.3 kg General appearance: PRESENT: no acute distress, cooperative Eye exam: ABSENT: scleral icterus Neck exam: ABSENT: JVD, thyromegaly, tracheal deviation Cardiovascular exam: PRESENT: RRR. ABSENT: gallop, rubs GI/Abdominal exam: PRESENT: normal bowel sounds, soft. ABSENT: tenderness Extremities exam: He has a wound VAC on his foot over the area where his middle 3 toes should be. There is an area of denuded skin laterally with eschar, as well as an area of denuded skin on the dorsal aspect of the left foot. Neurological exam: PRESENT: alert, oriented to person, oriented to place, oriented to time, oriented to situation Skin exam: PRESENT: dry, normal color, warm Results Laboratory Results: 02/14/19 09:32 02/14/19 09:32 02/06/19 02/06/19 11:00 11:00 Creatine Kinase 28 L CK-MB (CK-2) 0.34 Troponin I < 0.012 Impressions: Chest X-Ray 02/06/19 11:26 IMPRESSION: DIFFUSE INTERSTITIAL SCARRING. NO ACUTE RADIOGRAPHIC FINDING IN THE CHEST. Foot X-Ray 02/06/19 11:28 IMPRESSION: SUPERFICIAL SOFT TISSUE ULCERATION ON THE LATERAL IMAGE. ON THE AP AND OBLIQUE IMAGES THERE IS PATCHY OSTEOPENIA AND INDISTINCT APPEARANCE OF THE CORTEX AT THE BASE OF THE PROXIMAL PHALANX OF THE 3RD AND 4TH TOE. SIMILAR APPEARANCE INVOLVING THE HEAD OF THE 3RD AND 4TH METATARSALS AND POSSIBLY THE 2ND. FINDINGS SUSPICIOUS FOR OSTEOMYELITIS. FURTHER EVALUATION WITH MRI OF THE FOOT MAY BE INDICATED. Assessment and Plan - Diagnosis (1) Left infected gangrenous foot Is this a current diagnosis for this admission?: Yes Plan: Wound VAC is in place. Antibiotics are ordered. Surgical consult is apparently planning to remove the wound VAC for another bedside debridement today, but he would likely continue to progress to the point where he will need some form of amputation. He is continuing to refuse it. He wants to try oral antibiotics and a wound VAC at home. He works full-time but does not have insurance, and we are trying to see if we can put him on oral antibiotics and somehow get a wound VAC for him. They we will have to arrange the follow-up that he will need. - Time Time Spent with patient: 25-34 minutes
[2019-02-16] MEDS: CLINDAMYCIN 600 MG/D5W RTU 600 MG/50 ML RTUPB IV SCH (05:16)
[2019-02-16] MEDS: OXYCODONE-ACETAMINOPHEN 5-325 MG TABLET PO PRN ×2 (05:16→22:24)
[2019-02-16] MEDS: INSULIN LISPRO 100 UNIT/ML 3 ML VIAL SUBCUT SCH ×4 (07:52→22:25)
[2019-02-16] MEDS: INSULIN NPH (ISOPHANE), HUMAN 100 UNIT/ML 3 ML SUBCUT SCH ×2 (07:52→18:59)
--- NOTE | 2019-02-16 09:04 | PDOC PROGRESS REPORT ---
Subjective Progress Note for:: 02/16/19 Reason For Visit: LEFT INFECTED WITH GANGRENOUS FOOT Physical Exam Vital Signs: Temp Pulse Resp BP Pulse Ox 98.0 F 99 16 149/89 H 97 02/15/19 23:56 02/15/19 23:56 02/15/19 23:56 02/15/19 23:56 02/15/19 23:56 Intake & Output 02/15/19 02/16/19 02/17/19 06:59 06:59 06:59 Intake Total 1350 1494 Output Total 400 Balance 1350 1094 Weight 75.3 kg 75.3 kg General appearance: PRESENT: no acute distress Head exam: PRESENT: atraumatic Eye exam: PRESENT: EOMI Mouth exam: PRESENT: moist Respiratory exam: PRESENT: clear to auscultation hollis Cardiovascular exam: PRESENT: RRR Extremities exam: PRESENT: other - left forefoot still with drainage of pus from medial aspect of left great toe no improvment with wet to dry dressing Neurological exam: PRESENT: alert, awake, oriented to person, oriented to place, oriented to time, oriented to situation Skin exam: PRESENT: dry Results Laboratory Results: 02/14/19 09:32 02/14/19 09:32 02/06/19 02/06/19 11:00 11:00 Creatine Kinase 28 L CK-MB (CK-2) 0.34 Troponin I < 0.012 Impressions: Chest X-Ray 02/06/19 11:26 IMPRESSION: DIFFUSE INTERSTITIAL SCARRING. NO ACUTE RADIOGRAPHIC FINDING IN THE CHEST. Foot X-Ray 02/06/19 11:28 IMPRESSION: SUPERFICIAL SOFT TISSUE ULCERATION ON THE LATERAL IMAGE. ON THE AP AND OBLIQUE IMAGES THERE IS PATCHY OSTEOPENIA AND INDISTINCT APPEARANCE OF THE CORTEX AT THE BASE OF THE PROXIMAL PHALANX OF THE 3RD AND 4TH TOE. SIMILAR APPEARANCE INVOLVING THE HEAD OF THE 3RD AND 4TH METATARSALS AND POSSIBLY THE 2ND. FINDINGS SUSPICIOUS FOR OSTEOMYELITIS. FURTHER EVALUATION WITH MRI OF THE FOOT MAY BE INDICATED. Assessment & Plan - Diagnosis (1) Left infected gangrenous foot Is this a current diagnosis for this admission?: Yes - Plan Summary Plan Summary: still with drainage of pus from left forefoot no improvment with vac or with wet to dry dressing changes discussed left bka pt refuses however he would consent to forefoot amputation I discussed risks including possible not being able to control infection with just forefoot amp and difficulty with healing and orthotic use he understands and agreed to amputation of forefoot.
[2019-02-16] MEDS: ENOXAPARIN SODIUM INJ 40 MG/0.4 ML DISP.SYRIN SUBCUT SCH (10:00)
[2019-02-16] MEDS: DOCUSATE SODIUM 100 MG CAPSULE PO SCH ×2 (10:03→17:39)
[2019-02-16] MEDS: FAMOTIDINE 20 MG TABLET PO SCH ×2 (10:03→22:24)
[2019-02-16] MEDS ORDERED: SUCCINYLCHOLINE CHLORIDE INJ 200 MG/10 ML VIAL ONE (10:18)
[2019-02-16] MEDS ORDERED: METOCLOPRAMIDE HCL INJ/PF 10 MG/2 ML SDV ONE (10:18)
[2019-02-16] MEDS ORDERED: LIDOCAINE 2% INJ-PF (20 MG/ML) 2 ML AMPUL ONE (10:18)
[2019-02-16] MEDS ORDERED: ONDANSETRON HCL INJ/PF 4 MG/2 ML SDV ONE (10:18)
[2019-02-16] MEDS ORDERED: MIDAZOLAM 2 MG/2 ML INJ ONE (16:02)
[2019-02-16] MEDS ORDERED: FENTANYL CITRATE INJ/PF 100 MCG/2 ML AMPUL ONE (16:02)
[2019-02-16] MEDS ORDERED: EPHEDRINE SULFATE INJ 50 MG/1 ML AMPULE ONE (16:02)
[2019-02-16] MEDS ORDERED: ACETAMINOPHEN 1,000 MG/100 ML RTUPB IV ONE (16:03)
[2019-02-16] MEDS ORDERED: DEXMEDETOMIDINE INJ 80 MCG/20 ML VIAL IV ONE (16:03)
[2019-02-16] MEDS ORDERED: PROPOFOL INJ 200 MG/20 ML VIAL IV ONE (16:03)
[2019-02-16] MEDS ORDERED: MEPERIDINE HCL/PF INJ 25 MG/1 ML DISP.SYRIN IV PRN (16:57)
[2019-02-16] MEDS ORDERED: ONDANSETRON HCL INJ/PF 4 MG/2 ML SDV IV PRN (16:57)
[2019-02-16] MEDS ORDERED: FENTANYL CITRATE INJ/PF 100 MCG/2 ML AMPUL IV PRN ×3 (16:57)
[2019-02-16] MEDS ORDERED: PROMETHAZINE HCL INJ 25 MG/1 ML VIAL IV PRN ×2 (16:57)
[2019-02-16] MEDS ORDERED: DIPHENHYDRAMINE HCL 50 MG/ML VIAL IV PRN (16:57)
[2019-02-16] MEDS ORDERED: CEFAZOLIN INJ 1 GM VIAL ONE (17:11)
--- NOTE | 2019-02-16 17:11 | PDOC PROGRESS REPORT ---
Subjective Progress Note for:: 02/16/19 Subjective:: No adverse events overnight. No new complaints. No fevers. He agreed today to a partial amputation of his left foot. He is still pretty depressed about the idea of losing part of his foot. His chief concern is being able to get back to work. Reason For Visit: LEFT INFECTED WITH GANGRENOUS FOOT Physical Exam Vital Signs: Temp Pulse Resp BP Pulse Ox 97.9 F 84 20 134/88 H 100 02/16/19 12:12 02/16/19 12:12 02/16/19 12:12 02/16/19 12:12 02/16/19 12:12 Intake & Output 02/15/19 02/16/19 02/17/19 06:59 06:59 06:59 Intake Total 1350 1494 Output Total 400 Balance 1350 1094 Weight 75.3 kg 75.3 kg General appearance: PRESENT: no acute distress, cooperative Eye exam: ABSENT: scleral icterus Neck exam: ABSENT: JVD, thyromegaly, tracheal deviation Cardiovascular exam: PRESENT: RRR. ABSENT: gallop, rubs GI/Abdominal exam: PRESENT: normal bowel sounds, soft. ABSENT: tenderness Extremities exam: He has a clean gauze bandage over the left foot Neurological exam: PRESENT: alert, oriented to person, oriented to place, oriented to time, oriented to situation Skin exam: PRESENT: dry, normal color, warm Results Laboratory Results: 02/14/19 09:32 02/14/19 09:32 02/06/19 02/06/19 11:00 11:00 Creatine Kinase 28 L CK-MB (CK-2) 0.34 Troponin I < 0.012 Impressions: Chest X-Ray 02/06/19 11:26 IMPRESSION: DIFFUSE INTERSTITIAL SCARRING. NO ACUTE RADIOGRAPHIC FINDING IN THE CHEST. Foot X-Ray 02/06/19 11:28 IMPRESSION: SUPERFICIAL SOFT TISSUE ULCERATION ON THE LATERAL IMAGE. ON THE AP AND OBLIQUE IMAGES THERE IS PATCHY OSTEOPENIA AND INDISTINCT APPEARANCE OF THE CORTEX AT THE BASE OF THE PROXIMAL PHALANX OF THE 3RD AND 4TH TOE. SIMILAR APPEARANCE INVOLVING THE HEAD OF THE 3RD AND 4TH METATARSALS AND POSSIBLY THE 2ND. FINDINGS SUSPICIOUS FOR OSTEOMYELITIS. FURTHER EVALUATION WITH MRI OF THE FOOT MAY BE INDICATED. Assessment and Plan - Diagnosis (1) Left infected gangrenous foot Is this a current diagnosis for this admission?: Yes Plan: We got him on empiric antibiotic coverage. Surgery is been consulted. He agreed to a partial amputation of his left foot today because he still had some pus coming out of his foot where it had been debrided. - Time Time Spent with patient: 25-34 minutes
--- NOTE | 2019-02-16 18:22 | Operative Report ---
Nonrecallable Operative Report DATE OF SURGERY: 02/16/19 PREOPERATIVE DIAGNOSIS: left diabetic foot infection POSTOPERATIVE DIAGNOSIS: left diabetic foot infection OPERATION: transmetatarsal foot amputation left foot SURGEON: JUANA HERNANDEZ ANESTHESIA: Spinal TISSUE REMOVED OR ALTERED: forefoot COMPLICATIONS: none ESTIMATED BLOOD LOSS: 25cc INTRAOPERATIVE FINDINGS: see dictation PROCEDURE: see dictation
[2019-02-16] MEDS ORDERED: NYSTATIN 500000 UNIT/5 ML UDCUP PO ONE ×2 (18:45→23:00)
[2019-02-16] MEDS ORDERED: LEVOFLOXACIN 750 MG/D5W RTU 750 MG/150 ML RTUPB IV ONE (19:00)
--- NOTE | 2019-02-17 00:04 | EKG REPORT ---
SEVERITY:- OTHERWISE NORMAL ECG - SINUS RHYTHM BORDERLINE LEFT AXIS DEVIATION : Confirmed by: Erik Iniguez 17-Feb-2019 00:03:51
[2019-02-17] MEDS: OXYCODONE-ACETAMINOPHEN 5-325 MG TABLET PO PRN ×3 (04:34→18:16)
[2019-02-17] MEDS: NYSTATIN 500000 UNIT/5 ML UDCUP PO SCH ×4 (06:12→23:40)
--- NOTE | 2019-02-17 07:09 | OPERATIVE REPORT E ---
Operative Report NAME: ANN RAMIREZ : 1970 AGE: 48Y DATE OF SURGERY: 02/16/2019 ROOM: 436 PREOPERATIVE DIAGNOSIS: Left diabetic foot infection. POSTOPERATIVE DIAGNOSIS: Left diabetic foot infection. OPERATIVE PROCEDURE: Left transmetatarsal amputation. SURGEON: JUANA HERNANDEZ M.D. INDICATIONS FOR OPERATION: This is a 48-year-old male with a history of diabetes who was admitted to the hospital approximately 5 days ago with a diabetic foot infection. He underwent a pre-toe amputation. His second, third, and fourth toe were amputated and he has been monitored on the floor with dressing changes and IV antibiotics. However, there is still persistent purulent material coming from the medial aspect of the left great toe that is extending up the forefoot, and for this reason, he was offered a left [id number] amputation; however, he refused. After a long discussion with the patient and him understanding that a transmetatarsal amputation may not heal, he still wanted to undergo that as opposed to a left [id number] amputation. Therefore, he was scheduled for this procedure. PROCEDURE: The patient was brought to the operating room in awake, alert, and stable condition. A spinal anesthetic was placed and he was placed in a prone position and the left leg was prepped and draped in the usual sterile manner for the procedure. At the base of the great toe on the left, a fishmouth incision was made in the dorsum of the foot and extended around the lateral aspect of the foot and underneath to the plantar aspect of the foot, leaving the plantar skin flap a little bit longer than the dorsal skin flap. Once this was completed, we mobilized the periosteum up off all 4 metatarsals to the proximal portion of all 4 metatarsals and they were all divided with the bone cutter. The tendon and connective tissue were also divided sharply with either a 10 blade or the Porter scissors and the specimen was removed. Upon removing the specimen, there was still some dusky-looking muscle on the medial aspect of the left first metatarsal and this was dissected back proximally above the joint with sharp dissection until we obtained some good margins and relatively pink muscle. There was some bleeding from the skin edges and the deep tissue, however, it was not vigorous. There was one small artery that required suture ligature with 2-0 Vicryl suture, which controlled the bleeding. Once this was done, we mobilized the soft tissue underneath the dorsal and plantar flaps with Porter scissors to obtain a fishmouth type closure. Once all bleeding was controlled and all marginal tissue was debrided with sharp dissection, we then irrigated the wound with copious irrigation and normal saline using Asepto syringe. We then reapproximated the deep fascia with interrupted placed 2-0 Polysorb sutures. I left 3 separate [place] drains in the deep tissue and brought them out through the skin suture line for drainage. We then closed the dorsal and ventral flaps with interrupted placed 2-0 nylon sutures. A sterile dressing and a compression bandage was then placed at the termination of the operation. Estimated blood loss was 50 mL. Sponge and needle counts were correct x2. The patient was then transferred to recovery in stable condition. DICTATING PHYSICIAN: JUANA HERNANDEZ M.D. [id number] PHY#: [id number] ID: [id number] JOB#: [id number] ACCT: [id number] cc:JUANA HERNANDEZ M.D. >
[2019-02-17] MEDS: INSULIN LISPRO 100 UNIT/ML 3 ML VIAL SUBCUT SCH ×4 (08:34→22:14)
[2019-02-17] MEDS: INSULIN NPH (ISOPHANE), HUMAN 100 UNIT/ML 3 ML SUBCUT SCH ×2 (08:41→18:17)
[2019-02-17] MEDS: FAMOTIDINE 20 MG TABLET PO SCH ×2 (10:32→22:24)
[2019-02-17] MEDS: DOCUSATE SODIUM 100 MG CAPSULE PO SCH ×2 (10:32→18:16)
[2019-02-17] MEDS: ENOXAPARIN SODIUM INJ 40 MG/0.4 ML DISP.SYRIN SUBCUT SCH (10:32)
--- NOTE | 2019-02-17 11:50 | PDOC PROGRESS REPORT ---
Subjective Progress Note for:: 02/17/19 Subjective:: Complaining of foot pain Reason For Visit: LEFT INFECTED WITH GANGRENOUS FOOT Physical Exam Vital Signs: Temp Pulse Resp BP Pulse Ox 98.3 F 92 16 116/75 98 02/17/19 08:00 02/17/19 08:00 02/17/19 08:00 02/17/19 08:00 02/17/19 08:00 Intake & Output 02/16/19 02/17/19 02/18/19 06:59 06:59 06:59 Intake Total 1494 1627 Output Total 400 1500 Balance 1094 127 Weight 75.3 kg 75.3 kg General appearance: PRESENT: no acute distress Musculoskeletal exam: PRESENT: other - The stump is wrapped. Dressing dry Results Laboratory Results: 02/14/19 09:32 02/14/19 09:32 02/06/19 02/06/19 11:00 11:00 Creatine Kinase 28 L CK-MB (CK-2) 0.34 Troponin I < 0.012 Impressions: Chest X-Ray 02/06/19 11:26 IMPRESSION: DIFFUSE INTERSTITIAL SCARRING. NO ACUTE RADIOGRAPHIC FINDING IN THE CHEST. Foot X-Ray 02/06/19 11:28 IMPRESSION: SUPERFICIAL SOFT TISSUE ULCERATION ON THE LATERAL IMAGE. ON THE AP AND OBLIQUE IMAGES THERE IS PATCHY OSTEOPENIA AND INDISTINCT APPEARANCE OF THE CORTEX AT THE BASE OF THE PROXIMAL PHALANX OF THE 3RD AND 4TH TOE. SIMILAR APPEARANCE INVOLVING THE HEAD OF THE 3RD AND 4TH METATARSALS AND POSSIBLY THE 2ND. FINDINGS SUSPICIOUS FOR OSTEOMYELITIS. FURTHER EVALUATION WITH MRI OF THE FOOT MAY BE INDICATED. Assessment & Plan - Diagnosis (1) Left infected gangrenous foot Is this a current diagnosis for this admission?: Yes Plan: Impression: Patient now 1 day status post high transmetatarsal; reasonable pain control. Recommendations: 1. Continue current management 2. Take dressing down tomorrow; reassess level of foot viability. (2) Alcoholism /alcohol abuse Is this a current diagnosis for this admission?: Yes (3) Hypertension Qualifiers: Hypertension type: essential hypertension Qualified Code(s): I10 - Essent ial (primary) hypertension Is this a current diagnosis for this admission?: Yes (4) Uncontrolled diabetes mellitus Qualifiers: Diabetes mellitus type: type 2 Is this a current diagnosis for this admission?: Yes
--- NOTE | 2019-02-17 15:36 | PDOC PROGRESS REPORT ---
Subjective Progress Note for:: 02/17/19 Subjective:: No adverse events overnight. He had his foot surgery today. He said he was not sure what the plan was, but I told him that we were going to reassess the foot before he goes home to make sure he is going to heal the way we want to, and he was satisfied with that. Reason For Visit: LEFT INFECTED WITH GANGRENOUS FOOT Physical Exam Vital Signs: Temp Pulse Resp BP Pulse Ox 98.3 F 92 16 116/75 98 02/17/19 08:00 02/17/19 08:00 02/17/19 08:00 02/17/19 08:00 02/17/19 08:00 Intake & Output 02/16/19 02/17/19 02/18/19 06:59 06:59 06:59 Intake Total 1494 1627 Output Total 400 1500 Balance 1094 127 Weight 75.3 kg 75.3 kg General appearance: PRESENT: no acute distress, cooperative Eye exam: ABSENT: scleral icterus Neck exam: ABSENT: JVD, thyromegaly, tracheal deviation Cardiovascular exam: PRESENT: RRR. ABSENT: gallop, rubs GI/Abdominal exam: PRESENT: normal bowel sounds, soft. ABSENT: tenderness Extremities exam: He has a clean gauze bandage over the left foot wrapped in C oban and his forefoot is missing status post partial amputation Neurological exam: PRESENT: alert, oriented to person, oriented to place, oriented to time, oriented to situation Skin exam: PRESENT: dry, normal color, warm Results Laboratory Results: 02/14/19 09:32 02/14/19 09:32 02/06/19 02/06/19 11:00 11:00 Creatine Kinase 28 L CK-MB (CK-2) 0.34 Troponin I < 0.012 Impressions: Chest X-Ray 02/06/19 11:26 IMPRESSION: DIFFUSE INTERSTITIAL SCARRING. NO ACUTE RADIOGRAPHIC FINDING IN THE CHEST. Foot X-Ray 02/06/19 11:28 IMPRESSION: SUPERFICIAL SOFT TISSUE ULCERATION ON THE LATERAL IMAGE. ON THE AP AND OBLIQUE IMAGES THERE IS PATCHY OSTEOPENIA AND INDISTINCT APPEARANCE OF THE CORTEX AT THE BASE OF THE PROXIMAL PHALANX OF THE 3RD AND 4TH TOE. SIMILAR APPEARANCE INVOLVING THE HEAD OF THE 3RD AND 4TH METATARSALS AND POSSIBLY THE 2ND. FINDINGS SUSPICIOUS FOR OSTEOMYELITIS. FURTHER EVALUATION WITH MRI OF THE FOOT MAY BE INDICATED. Assessment and Plan - Diagnosis (1) Left infected gangrenous foot Is this a current diagnosis for this admission?: Yes Plan: We got him on empiric antibiotic coverage. Surgery is been consulted. Had a partial amputation of his left foot today, and surgery is going to reassess the foot later in an attempt to determine viability. - Time Time Spent with patient: 25-34 minutes
--- NOTE | 2019-02-17 16:24 | PSYCHOLOGICAL NOTE ---
Psych Note - Psych Note Date seen by psych provider: 02/17/19 Time seen by psych provider: 13:25 - Evaluation from [id number]. Psych Note: Reason for Consult: SI Contact Permissions: Friend or Boss possibly. Patient is a 48 year old male who presented to the ED on 02/06/19 for being noncompliant with diabetic medications, drinking heavily the last couple years and concern for left foot infection (ulcerated scores, black discoloration, severe pain) which started 6 weeks prior. He was subsequently admitted to hospitalist services for left infected gangrenous foot, leukocytosis, uncontrolled Diabetes Mellitus, alcoholism/alcohol abuse and HTN. He had to have surgery on foot due to threatened forefoot in need of urgent operative debridement. He required partial amputation of foot even after initial surgery, which he agreed to and took place yesterday (02/16/19 at 1820). Documentation noted he was pretty depressed about the idea of losing part of his foot and had concern for being able to go back to work (future.forward/goal oriented thinking). Patient asked "why do I need a gun, no I don't own one or have one, I have never used a gun in my life." When asking about if he recalled his statements or felt that way he said "what kind of shit, I don't want to hear that." He acknowledged "when people are in pain, they hurt, get mad and can say anything." He stated he was in pain all day and night and wanted pain medication. He was made aware he is on a timed schedule for pain medication. He stated his boss would be helping him with everything. Patient was alert and oriented to self, person, place, time and situation. Mood was depressed with irritable affect. He denied SI/HI. He did not appear to be responding to internal stimuli as evidenced by fair eye contact, answering questions appropriately when addressed, staying on topic and carrying on some dialogue conversation. Thought processes were linear. Conversational speech was within normal limits for rate, tone and prosody. Intellectual abilities are estimated to be average. Insight, judgment and impulse control were fair as evidenced by recognizing people say things when they are in pain, hurting and mad. Attending nurse stated the surgeon reported while patient was coming out of an esthesia he stated he wished he had a gun to end it all. She noted otherwise the only thing he said was he felt like he was going to because he asked for pain medication before the time of administration (on timed schedule). Diagnosis: Partial amputation of left foot on 02/16/19 311 (F32.9) Unspecified Depressive Disorder 303.90 (F10.20) Alcohol Use Disorder, Moderate Impression/Plan: Patient is cleared from acute psychiatric services. He denied SI/HI and no observed psychosis. If he is interested in treatment for alcohol behavioral health can link him to [facility] services. Consulted with Dr. Rico regarding the management and care of patient. Attending Hospitalist made aware of recommendations.
[2019-02-17] MEDS: LEVOFLOXACIN 750 MG/D5W RTU 750 MG/150 ML RTUPB IV SCH (18:16)
[2019-02-18] MEDS: NYSTATIN 500000 UNIT/5 ML UDCUP PO SCH ×3 (06:11→19:37)
[2019-02-18] MEDS: OXYCODONE-ACETAMINOPHEN 5-325 MG TABLET PO PRN ×2 (07:41→14:08)
[2019-02-18] MEDS: INSULIN LISPRO 100 UNIT/ML 3 ML VIAL SUBCUT SCH ×4 (08:25→21:37)
[2019-02-18] MEDS: INSULIN NPH (ISOPHANE), HUMAN 100 UNIT/ML 3 ML SUBCUT SCH ×2 (08:34→18:55)
[2019-02-18] MEDS: FAMOTIDINE 20 MG TABLET PO SCH ×2 (09:48→22:02)
[2019-02-18] MEDS: ENOXAPARIN SODIUM INJ 40 MG/0.4 ML DISP.SYRIN SUBCUT SCH (09:48)
[2019-02-18] MEDS: DOCUSATE SODIUM 100 MG CAPSULE PO SCH ×2 (09:49→18:58)
--- NOTE | 2019-02-18 18:35 | PDOC PROGRESS REPORT ---
Subjective Progress Note for:: 02/18/19 Subjective:: Patient appears to be comfortable. He does note pain in his left foot but he just had a transmetatarsal amputation. This is to be expected. He states that he feels much better than at the time of admission. Reason For Visit: LEFT INFECTED WITH GANGRENOUS FOOT Physical Exam Vital Signs: Temp Pulse Resp BP Pulse Ox 99.2 F 87 17 125/78 97 02/18/19 16:07 02/18/19 16:07 02/18/19 16:07 02/18/19 16:07 02/18/19 16:07 Intake & Output 02/17/19 02/18/19 02/19/19 06:59 06:59 06:59 Intake Total 1627 1916 Output Total 1500 473 Balance 127 1443 Weight 75.3 kg 75 kg 75 kg General appearance: PRESENT: cooperative, mild distress, well-developed Head exam: PRESENT: atraumatic, normocephalic Ear exam: PRESENT: normal external ear exam Mouth exam: PRESENT: moist, tongue midline Respiratory exam: PRESENT: clear to auscultation hollis, symmetrical, unlabored. ABSENT: accessory muscle use, rales, rhonchi, wheezes Cardiovascular exam: PRESENT: RRR, +S1, +S2 GI/Abdominal exam: PRESENT: normal bowel sounds, soft. ABSENT: distended, tenderness Rectal exam: PRESENT: deferred Extremities exam: PRESENT: other - New left transmetatarsal amputation. ABSENT: pedal edema Neurological exam: PRESENT: alert, awake, oriented to person, oriented to place, oriented to time, oriented to situation, CN II-XII grossly intact Psychiatric exam: PRESENT: appropriate affect. ABSENT: agitated, anxious Focused psych exam: ABSENT: delusional, restlessness Results Laboratory Results: 02/14/19 09:32 02/14/19 09:32 02/06/19 02/06/19 11:00 11:00 Creatine Kinase 28 L CK-MB (CK-2) 0.34 Troponin I < 0.012 Impressions: Chest X-Ray 02/06/19 11:26 IMPRESSION: DIFFUSE INTERSTITIAL SCARRING. NO ACUTE RADIOGRAPHIC FINDING IN THE CHEST. Foot X-Ray 02/06/19 11:28 IMPRESSION: SUPERFICIAL SOFT TISSUE ULCERATION ON THE LATERAL IMAGE. ON THE AP AND OBLIQUE IMAGES THERE IS PATCHY OSTEOPENIA AND INDISTINCT APPEARANCE OF THE CORTEX AT THE BASE OF THE PROXIMAL PHALANX OF THE 3RD AND 4TH TOE. SIMILAR APPEARANCE INVOLVING THE HEAD OF THE 3RD AND 4TH METATARSALS AND POSSIBLY THE 2ND. FINDINGS SUSPICIOUS FOR OSTEOMYELITIS. FURTHER EVALUATION WITH MRI OF THE FOOT MAY BE INDICATED. Assessment and Plan - Diagnosis (1) Left infected gangrenous foot Is this a current diagnosis for this admission?: Yes Plan: The patient was placed on IV antibiotics and seen by surgery. A left transmetatarsal amputation was performed. Surgery is checking on the wound for viability with regard to healing. Patient will likely return home with home health. He can follow-up in the wound care clinic. (2) Uncontrolled diabetes mellitus Qualifiers: Diabetes mellitus type: type 2 Is this a current diagnosis for this admission?: Yes Plan: On current regimen of NPH and sliding scale the patient has excellent glucose control. Continue current regimen. (3) Osteomyelitis of left foot Qualifiers: Osteomyelitis type: other acute Qualified Code(s): M86.172 - Other acute osteomyelitis, left ankle and foot Is this a current diagnosis for this admission?: Yes Plan: With diabetic foot ulcer. Notes patient has had amputation will likely be able to stop antibiotics. His white blood cell count is improving. Surgery will reassess tomorrow. If the wound is stable we will establish a discharge plan with follow-up. (4) Hypertension Qualifiers: Hypertension type: essential hypertension Qualified Code(s): I10 - Essential (primary) hypertension Is this a current diagnosis for this admission?: Yes Plan: Blood pressures appear to be well controlled. Continue current regimen. (5) Alcoholism /alcohol abuse Is this a current diagnosis for this admission?: Yes Plan: History of alcohol abuse. We will monitor for withdrawal/delirium tremens. - Time Time Spent with patient: Less than 15 minutes Medications reviewed and adjusted accordingly: Yes Anticipated discharge: Home with Homehealth
[2019-02-18] MEDS: LEVOFLOXACIN 750 MG/D5W RTU 750 MG/150 ML RTUPB IV SCH (18:54)
[2019-02-19] MEDS: OXYCODONE-ACETAMINOPHEN 5-325 MG TABLET PO PRN ×2 (00:38→09:41)
[2019-02-19] MEDS: NYSTATIN 500000 UNIT/5 ML UDCUP PO SCH ×4 (00:39→19:03)
[2019-02-19 07:07] LABS: ABSOLUTE BASOPHILS # (AUTO) 0.1 10^3/uL (0.0-0.2); ABSOLUTE EOSINOPHILS # (AUTO) 0.3 10^3/uL (0.0-0.6); ABSOLUTE LYMPHOCYTES (AUTO) 1.6 10^3/uL (0.5-4.7); ABSOLUTE MONOCYTES (AUTO) 0.8 10^3/uL (0.1-1.4); ABSOLUTE NEUT (AUTO) 6.9 10^3/uL (1.7-8.2); BASOPHILS % (AUTO) 0.8 % (0-2); EOSINOPHILS % (AUTO) 3.3 % (0-6); HEMATOCRIT 23.7 % (37.9-51.0); HEMOGLOBIN 8.3 g/dL (13.5-17.0); LYMPHOCYTES % (AUTO) 16.3 % (13-45); MEAN CORPUSCULAR HEMOGLOBIN 34.3 pg (27.0-33.4); MEAN CORPUSCULAR HGB CONC 34.9 g/dL (32.0-36.0); MEAN CORPUSCULAR VOLUME 98 fl (80-97); MONOCYTES % (AUTO) 7.8 % (3-13); PLATELET COUNT 435 10^3/uL (150-450); RED BLOOD COUNT 2.41 10^6/uL (4.35-5.55); RED CELL DISTRIBUTION WIDTH 12.5 % (11.5-14.0); SEGMENTED NEUTROPHILS % (AUTO) 71.8 % (42-78); TOTAL CELLS COUNTED % (AUTO) 100 %; WHITE BLOOD COUNT 9.7 10^3/uL (4.0-10.5)
[2019-02-19 07:24] LABS: ALANINE AMINOTRANSFERASE 22 U/L (21-72); ALBUMIN 2.5 g/dL (3.5-5.0); ALKALINE PHOSPHATASE 85 U/L (38-126); ANION GAP 8 (5-19); ASPARTATE AMINO TRANSFERASE 22 U/L (17-59); BILIRUBIN,DIRECT 0.2 mg/dL (0.0-0.4); BILIRUBIN,TOTAL 0.2 mg/dL (0.2-1.3); BLOOD UREA NITROGEN 18 mg/dL (7-20); CALCIUM 8.9 mg/dL (8.4-10.2); CARBON DIOXIDE 22 mmol/L (22-30); CHLORIDE 107 mmol/L (98-107); GLUCOSE 113 mg/dL (75-110); PHOSPHORUS 5.9 mg/dL (2.5-4.5); POTASSIUM 4.3 mmol/L (3.6-5.0); SODIUM 136.7 mmol/L (137-145); TOTAL PROTEIN 6.9 g/dL (6.3-8.2)
[2019-02-19] MEDS: INSULIN LISPRO 100 UNIT/ML 3 ML VIAL SUBCUT SCH ×4 (08:01→21:19)
[2019-02-19] MEDS: INSULIN NPH (ISOPHANE), HUMAN 100 UNIT/ML 3 ML SUBCUT SCH ×2 (08:01→19:03)
--- NOTE | 2019-02-19 08:08 | PDOC PROGRESS REPORT ---
Subjective Progress Note for:: 02/19/19 Subjective:: less pain Reason For Visit: LEFT INFECTED WITH GANGRENOUS FOOT Physical Exam Vital Signs: Temp Pulse Resp BP Pulse Ox 99.2 F 94 16 101/78 97 02/18/19 20:00 02/18/19 20:00 02/18/19 20:00 02/18/19 20:00 02/18/19 20:00 Intake & Output 02/18/19 02/19/19 02/20/19 06:59 06:59 06:59 Intake Total 1916 630 Output Total 473 500 Balance 1443 130 Weight 75 kg 75 kg General appearance: PRESENT: no acute distress Eye exam: PRESENT: EOMI Mouth exam: PRESENT: moist Neck exam: PRESENT: full ROM Respiratory exam: PRESENT: clear to auscultation hollis Cardiovascular exam: PRESENT: RRR Pulses: PRESENT: normal radial pulses, normal femoral pulses Vascular exam: PRESENT: normal capillary refill GI/Abdominal exam: PRESENT: soft Rectal exam: PRESENT: deferred Extremities exam: PRESENT: other - left stump examined wound clean with richard drains in place fair capillary refill no evidence of pus with compression of forefoot Psychiatric exam: PRESENT: appropriate affect Skin exam: PRESENT: dry Results Laboratory Results: 02/19/19 06:56 02/19/19 06:56 02/19/19 02/19/19 06:56 06:56 WBC 9.7 RBC 2.41 L Hgb 8.3 L Hct 23.7 L MCV 98 H MCH 34.3 H MCHC 34.9 RDW 12.5 Plt Count 435 Seg Neutrophils % 71.8 Lymphocytes % 16.3 Monocytes % 7.8 Eosinophils % 3.3 Basophils % 0.8 Absolute Neutrophils 6.9 Absolute Lymphocytes 1.6 Absolute Monocytes 0.8 Absolute Eosinophils 0.3 Absolute Basophils 0.1 Sodium 136.7 L Potassium 4.3 Chloride 107 Carbon Dioxide 22 Anion Gap 8 BUN 18 Creatinine 1.48 H Est GFR ( Amer) > 60 Est GFR (Non-Af Amer) 51 L Glucose 113 H Calcium 8.9 Phosphorus 5.9 H Magnesium 1.9 Total Bilirubin 0.2 AST 22 ALT 22 Alkaline Phosphatase 85 Total Protein 6.9 Albumin 2.5 L 02/06/19 02/06/19 11:00 11:00 Creatine Kinase 28 L CK-MB (CK-2) 0.34 Troponin I < 0.012 Impressions: Chest X-Ray 02/06/19 11:26 IMPRESSION: DIFFUSE INTERSTITIAL SCARRING. NO ACUTE RADIOGRAPHIC FINDING IN THE CHEST. Foot X-Ray 02/06/19 11:28 IMPRESSION: SUPERFICIAL SOFT TISSUE ULCERATION ON THE LATERAL IMAGE. ON THE AP AND OBLIQUE IMAGES THERE IS PATCHY OSTEOPENIA AND INDISTINCT APPEARANCE OF THE CORTEX AT THE BASE OF THE PROXIMAL PHALANX OF THE 3RD AND 4TH TOE. SIMILAR APPEARANCE INVOLVING THE HEAD OF THE 3RD AND 4TH METATARSALS AND POSSIBLY THE 2ND. FINDINGS SUSPICIOUS FOR OSTEOMYELITIS. FURTHER EVALUATION WITH MRI OF THE FOOT MAY BE INDICATED. Assessment & Plan - Diagnosis (1) Left infected gangrenous foot Is this a current diagnosis for this admission?: Yes - Plan Summary Plan Summary: forefoot appears improved no obvious purulent drainage will cont dressing changes discharge planning pt lives alone.
[2019-02-19] MEDS: DOCUSATE SODIUM 100 MG CAPSULE PO SCH ×2 (09:42→19:07)
[2019-02-19] MEDS: ENOXAPARIN SODIUM INJ 40 MG/0.4 ML DISP.SYRIN SUBCUT SCH (09:42)
[2019-02-19] MEDS: FAMOTIDINE 20 MG TABLET PO SCH ×2 (09:42→21:09)
[2019-02-19] MEDS: LEVOFLOXACIN 750 MG/D5W RTU 750 MG/150 ML RTUPB IV SCH (19:03)
[2019-02-20] MEDS: NYSTATIN 500000 UNIT/5 ML UDCUP PO SCH ×5 (01:41→23:00)
[2019-02-20] MEDS: OXYCODONE-ACETAMINOPHEN 5-325 MG TABLET PO PRN ×3 (05:24→22:53)
[2019-02-20 06:46] LABS: ABSOLUTE BASOPHILS # (AUTO) 0.1 10^3/uL (0.0-0.2); ABSOLUTE EOSINOPHILS # (AUTO) 0.3 10^3/uL (0.0-0.6); ABSOLUTE LYMPHOCYTES (AUTO) 1.9 10^3/uL (0.5-4.7); ABSOLUTE MONOCYTES (AUTO) 0.8 10^3/uL (0.1-1.4); BASOPHILS % (AUTO) 1.1 % (0-2); EOSINOPHILS % (AUTO) 2.6 % (0-6); HEMATOCRIT 26.4 % (37.9-51.0); HEMOGLOBIN 9.2 g/dL (13.5-17.0); LYMPHOCYTES % (AUTO) 18.5 % (13-45); MEAN CORPUSCULAR HEMOGLOBIN 34.3 pg (27.0-33.4); MEAN CORPUSCULAR HGB CONC 34.7 g/dL (32.0-36.0); MEAN CORPUSCULAR VOLUME 99 fl (80-97); MONOCYTES % (AUTO) 7.7 % (3-13); PLATELET COUNT 504 10^3/uL (150-450); RED BLOOD COUNT 2.67 10^6/uL (4.35-5.55); RED CELL DISTRIBUTION WIDTH 12.5 % (11.5-14.0); SEGMENTED NEUTROPHILS % (AUTO) 70.1 % (42-78); TOTAL CELLS COUNTED % (AUTO) 100 %
[2019-02-20 07:08] LABS: ALBUMIN 2.7 g/dL (3.5-5.0); ANION GAP 10 (5-19); BLOOD UREA NITROGEN 19 mg/dL (7-20); CALCIUM 9.1 mg/dL (8.4-10.2); CARBON DIOXIDE 20 mmol/L (22-30); CHLORIDE 105 mmol/L (98-107); GLUCOSE 116 mg/dL (75-110); PHOSPHORUS 5.7 mg/dL (2.5-4.5); POTASSIUM 4.9 mmol/L (3.6-5.0); SODIUM 135.3 mmol/L (137-145)
[2019-02-20] MEDS: INSULIN LISPRO 100 UNIT/ML 3 ML VIAL SUBCUT SCH ×4 (08:02→22:58)
[2019-02-20] MEDS: INSULIN NPH (ISOPHANE), HUMAN 100 UNIT/ML 3 ML SUBCUT SCH ×2 (08:26→16:45)
--- NOTE | 2019-02-20 09:28 | PDOC PROGRESS REPORT ---
Subjective Progress Note for:: 02/20/19 Subjective:: no complaints of pain Reason For Visit: LEFT INFECTED WITH GANGRENOUS FOOT Physical Exam Vital Signs: Temp Pulse Resp BP Pulse Ox 99.2 F 83 18 131/75 H 95 02/20/19 00:00 02/20/19 00:00 02/20/19 00:00 02/20/19 00:00 02/20/19 00:00 Intake & Output 02/19/19 02/20/19 02/21/19 06:59 06:59 06:59 Intake Total 630 750 Output Total 500 400 Balance 130 350 Weight 75 kg 75.3 kg General appearance: PRESENT: no acute distress Head exam: PRESENT: normocephalic Eye exam: PRESENT: EOMI Mouth exam: PRESENT: moist Neck exam: PRESENT: full ROM Respiratory exam: PRESENT: clear to auscultation hollis Cardiovascular exam: PRESENT: RRR Pulses: PRESENT: normal radial pulses, normal femoral pulses Vascular exam: PRESENT: other - sl improved capillary refil on plantar surface of left foot Extremities exam: PRESENT: full ROM Musculoskeletal exam: PRESENT: ambulatory Psychiatric exam: PRESENT: appropriate affect Focused psych exam: ABSENT: psychomotor agitation Skin exam: PRESENT: dry Results Laboratory Results: 02/20/19 06:23 02/20/19 06:23 02/20/19 02/20/19 06:23 06:23 WBC 10.0 RBC 2.67 L Hgb 9.2 L Hct 26.4 L MCV 99 H MCH 34.3 H MCHC 34.7 RDW 12.5 Plt Count 504 H Seg Neutrophils % 70.1 Lymphocytes % 18.5 Monocytes % 7.7 Eosinophils % 2.6 Basophils % 1.1 Absolute Neutrophils 7.0 Absolute Lymphocytes 1.9 Absolute Monocytes 0.8 Absolute Eosinophils 0.3 Absolute Basophils 0.1 Sodium 135.3 L Potassium 4.9 Chloride 105 Carbon Dioxide 20 L Anion Gap 10 BUN 19 Creatinine 1.83 H Est GFR ( Amer) 48 L Est GFR (Non-Af Amer) 40 L Glucose 116 H Calcium 9.1 Phosphorus 5.7 H Magnesium 1.9 Albumin 2.7 L 02/06/19 02/06/19 11:00 11:00 Creatine Kinase 28 L CK-MB (CK-2) 0.34 Troponin I < 0.012 Impressions: Chest X-Ray 03/14/19 11:26 IMPRESSION: DIFFUSE INTERSTITIAL SCARRING. NO ACUTE RADIOGRAPHIC FINDING IN THE CHEST. Foot X-Ray 02/06/19 11:28 IMPRESSION: SUPERFICIAL SOFT TISSUE ULCERATION ON THE LATERAL IMAGE. ON THE AP AND OBLIQUE IMAGES THERE IS PATCHY OSTEOPENIA AND INDISTINCT APPEARANCE OF THE CORTEX AT THE BASE OF THE PROXIMAL PHALANX OF THE 3RD AND 4TH TOE. SIMILAR APPEARANCE INVOLVING THE HEAD OF THE 3RD AND 4TH METATARSALS AND POSSIBLY THE 2ND. FINDINGS SUSPICIOUS FOR OSTEOMYELITIS. FURTHER EVALUATION WITH MRI OF THE FOOT MAY BE INDICATED. Assessment & Plan - Diagnosis (1) Left infected gangrenous foot Is this a current diagnosis for this admission?: Yes - Plan Summary Plan Summary: afeb vss wbc wnl left foot examined min if any drainage from richard even with vigorous compression, I could not express any pus started to advance richard drain will cont iv abx for now physical therapy. occupational rx referral.
--- NOTE | 2019-02-20 09:29 | PDOC PROGRESS REPORT ---
Subjective Progress Note for:: 02/20/19 Subjective:: The patient is having some pain in his foot from his transmetatarsal amputation. He denies fever or chills. No chest pain or cough. No abdominal pain. No nausea or vomiting. No voiding complaints. Reason For Visit: LEFT INFECTED WITH GANGRENOUS FOOT Physical Exam Vital Signs: Temp Pulse Resp BP Pulse Ox 99.2 F 83 18 131/75 H 95 02/20/19 00:00 02/20/19 00:00 02/20/19 00:00 02/20/19 00:00 02/20/19 00:00 Intake & Output 02/19/19 02/20/19 02/21/19 06:59 06:59 06:59 Intake Total 630 750 Output Total 500 400 Balance 130 350 Weight 75 kg 75.3 kg General appearance: PRESENT: no acute distress, well-developed, well-nourished Head exam: PRESENT: atraumatic, normocephalic Respiratory exam: PRESENT: clear to auscultation hollis. ABSENT: rales, rhonchi, wheezes Cardiovascular exam: PRESENT: RRR. ABSENT: diastolic murmur, rubs, systolic murmur GI/Abdominal exam: PRESENT: normal bowel sounds, soft. ABSENT: distended, guarding, mass, organolmegaly, rebound, tenderness Rectal exam: PRESENT: deferred Extremities exam: PRESENT: other - Surgical dressing in place to left foot- not removed. ABSENT: calf tenderness, clubbing, pedal edema Neurological exam: PRESENT: alert, awake, oriented to person, oriented to place, oriented to time, oriented to situation, CN II-XII grossly intact. ABSENT: motor sensory deficit Psychiatric exam: PRESENT: appropriate affect, normal mood. ABSENT: homicidal ideation, suicidal ideation Skin exam: PRESENT: dry, intact, warm. ABSENT: cyanosis, rash Results Laboratory Results: 02/20/19 06:23 02/20/19 06:23 02/20/19 02/20/19 06:23 06:23 WBC 10.0 RBC 2.67 L Hgb 9.2 L Hct 26.4 L MCV 99 H MCH 34.3 H MCHC 34.7 RDW 12.5 Plt Count 504 H Seg Neutrophils % 70.1 Lymphocytes % 18.5 Monocytes % 7.7 Eosinophils % 2.6 Basophils % 1.1 Absolute Neutrophils 7.0 Absolute Lymphocytes 1.9 Absolute Monocytes 0.8 Absolute Eosinophils 0.3 Absolute Basophils 0.1 Sodium 135.3 L Potassium 4.9 Chloride 105 Carbon Dioxide 20 L Anion Gap 10 BUN 19 Creatinine 1.83 H Est GFR ( Amer) 48 L Est GFR (Non-Af Amer) 40 L Glucose 116 H Calcium 9.1 Phosphorus 5.7 H Magnesium 1.9 Albumin 2.7 L 02/06/19 02/06/19 11:00 11:00 Creatine Kinase 28 L CK-MB (CK-2) 0.34 Troponin I < 0.012 Impressions: Chest X-Ray 02/06/19 11:26 IMPRESSION: DIFFUSE INTERSTITIAL SCARRING. NO ACUTE RADIOGRAPHIC FINDING IN THE CHEST. Foot X-Ray 02/06/19 11:28 IMPRESSION: SUPERFICIAL SOFT TISSUE ULCERATION ON THE LATERAL IMAGE. ON THE AP AND OBLIQUE IMAGES THERE IS PATCHY OSTEOPENIA AND INDISTINCT APPEARANCE OF THE CORTEX AT THE BASE OF THE PROXIMAL PHALANX OF THE 3RD AND 4TH TOE. SIMILAR APPEARANCE INVOLVING THE HEAD OF THE 3RD AND 4TH METATARSALS AND POSSIBLY THE 2ND. FINDINGS SUSPICIOUS FOR OSTEOMYELITIS. FURTHER EVALUATION WITH MRI OF THE FOOT MAY BE INDICATED. Assessment and Plan - Diagnosis (1) Left infected gangrenous foot Is this a current diagnosis for this admission?: Yes Plan: The patient was placed on IV antibiotics and seen by surgery. A left transmetatarsal amputation was performed. Surgery is checking on the wound for viability with regard to healing. Patient will likely return home with home health. He can follow-up in the wound care clinic. Continue Levaquin (2) Osteomyelitis of left foot Qualifiers: Osteomyelitis type: other acute Qualified Code(s): M86.172 - Other acute os teomyelitis, left ankle and foot Is this a current diagnosis for this admission?: Yes Plan: With diabetic foot ulcer. Notes patient has had amputation will likely be able to stop antibiotics soon. His white blood cell count is improving. Surgery will reassess tomorrow. If the wound is stable we will establish a discharge plan with follow-up. (3) Anemia Is this a current diagnosis for this admission?: Yes Plan: Multifactorial due to post operative blood loss, fluids resulting in hemodilution, probable iron defiency. He had a precipitous drop in hemoglobin due to all these factors however his hemoglobin is stable now (4) Hyponatremia Is this a current diagnosis for this admission?: Yes Plan: Stable (5) Alcoholism /alcohol abuse Is this a current diagnosis for this admission?: Yes Plan: History of alcohol abuse. We will monitor for withdrawal/delirium tremens. (6) Hypertension Qualifiers: Hypertension type: essential hypertension Qualified Code(s): I10 - Essential (primary) hypertension Is this a current diagnosis for this admission?: Yes Plan: Blood pressures appear to be well controlled. Continue current regimen. (7) Full code status Is this a current diagnosis for this admission?: Yes - Time Time Spent with patient: 35 or more minutes - Inpatient Certification Post Hospital Care: Other - Need to talk to discharge planning regarding services at home. hopefully can be discharge in the next 24-48 hours
[2019-02-20] MEDS: DOCUSATE SODIUM 100 MG CAPSULE PO SCH ×2 (10:36→18:00)
[2019-02-20] MEDS: FAMOTIDINE 20 MG TABLET PO SCH ×2 (10:36→22:54)
[2019-02-20] MEDS: ENOXAPARIN SODIUM INJ 40 MG/0.4 ML DISP.SYRIN SUBCUT SCH (10:36)
[2019-02-20] MEDS ORDERED: ONDANSETRON HCL INJ/PF 4 MG/2 ML SDV IV PRN (14:00)
[2019-02-20] MEDS: LEVOFLOXACIN 750 MG/D5W RTU 750 MG/150 ML RTUPB IV SCH (18:00)
--- NOTE | 2019-02-20 18:14 | PDOC PROGRESS REPORT ---
Subjective Progress Note for:: 02/20/19 Subjective:: Patient is seen resting in bed. He is awake, alert, oriented x3. Denies chest pain, shortness breath or dyspnea. She denies nausea, vomiting or abdominal pain. He tells me he wants to go home. We told him that is up to the surgeons. He denies any other arthralgias of mild allergies except when his left foot. He denies fever chills or night remaining review of systems are negative. Reason For Visit: LEFT INFECTED WITH GANGRENOUS FOOT Physical Exam Vital Signs: Temp Pulse Resp BP Pulse Ox 98.2 F 94 16 142/87 H 100 02/20/19 15:16 02/20/19 15:16 02/20/19 15:16 02/20/19 15:16 02/20/19 15:16 Intake & Output 02/19/19 02/20/19 02/21/19 06:59 06:59 06:59 Intake Total 202 082 7060 Output Total 500 400 Balance 982 554 6662 Weight 75 kg 75.3 kg General appearance: PRESENT: no acute distress, well-developed, well-nourished Head exam: PRESENT: atraumatic, normocephalic Eye exam: PRESENT: conjunctiva pink, EOMI, PERRLA. ABSENT: scleral icterus Ear exam: PRESENT: normal external ear exam Mouth exam: PRESENT: moist, tongue midline Neck exam: ABSENT: carotid bruit, JVD, lymphadenopathy, thyromegaly Respiratory exam: PRESENT: clear to auscultation hollis. ABSENT: rales, rhonchi, wheezes Cardiovascular exam: PRESENT: RRR. ABSENT: diastolic murmur, rubs, systolic murmur Pulses: PRESENT: normal carotid pulses, normal radial pulses Vascular exam: PRESENT: normal capillary refill GI/Abdominal exam: PRESENT: normal bowel sounds, soft. ABSENT: distended, guarding, mass, organolmegaly, rebound, tenderness Rectal exam: PRESENT: deferred Extremities exam: PRESENT: full ROM, tenderness, other - Left forefoot amputation remaining foot and ankles surgical dressing and Jorge wrap Musculoskeletal exam: PRESENT: deformity, full ROM, tenderness - Left forefoot Neurological exam: PRESENT: alert, awake, oriented to person, oriented to place, oriented to time, oriented to situation, CN II-XII grossly intact. ABSENT: motor sensory deficit Psychiatric exam: PRESENT: appropriate affect, normal mood. ABSENT: homicidal ideation, suicidal ideation Skin exam: PRESENT: dry, warm Results Laboratory Results: 02/20/19 06:23 02/20/19 06:23 02/20/19 02/20/19 06:23 06:23 WBC 10.0 RBC 2.67 L Hgb 9.2 L Hct 26.4 L MCV 99 H MCH 34.3 H MCHC 34.7 RDW 12.5 Plt Count 504 H Seg Neutrophils % 70.1 Lymphocytes % 18.5 Monocytes % 7.7 Eosinophils % 2.6 Basophils % 1.1 Absolute Neutrophils 7.0 Absolute Lymphocytes 1.9 Absolute Monocytes 0.8 Absolute Eosinophils 0.3 Absolute Basophils 0.1 Sodium 135.3 L Potassium 4.9 Chloride 105 Carbon Dioxide 20 L Anion Gap 10 BUN 19 Creatinine 1.83 H Est GFR ( Amer) 48 L Est GFR (Non-Af Amer) 40 L Glucose 116 H Calcium 9.1 Phosphorus 5.7 H Magnesium 1.9 Albumin 2.7 L 02/06/19 02/06/19 11:00 11:00 Creatine Kinase 28 L CK-MB (CK-2) 0.34 Troponin I < 0.012 Impressions: Chest X-Ray 02/06/19 11:26 IMPRESSION: DIFFUSE INTERSTITIAL SCARRING. NO ACUTE RADIOGRAPHIC FINDING IN THE CHEST. Foot X-Ray 02/06/19 11:28 IMPRESSION: SUPERFICIAL SOFT TISSUE ULCERATION ON THE LATERAL IMAGE. ON THE AP AND OBLIQUE IMAGES THERE IS PATCHY OSTEOPENIA AND INDISTINCT APPEARANCE OF THE CORTEX AT THE BASE OF THE PROXIMAL PHALANX OF THE 3RD AND 4TH TOE. SIMILAR APPEARANCE INVOLVING THE HEAD OF THE 3RD AND 4TH METATARSALS AND POSSIBLY THE 2ND. FINDINGS SUSPICIOUS FOR OSTEOMYELITIS. FURTHER EVALUATION WITH MRI OF THE FOOT MAY BE INDICATED. Assessment and Plan - Diagnosis (1) Left infected gangrenous foot Is this a current diagnosis for this admission?: Yes Plan: The patient was placed on IV antibiotics and seen by surgery. A left transmetatarsal amputation was performed. Surgery is checking on the wound for viability with regard to healing. Patient will likely return home with home health. He can follow-up in the wound care clinic. Continue Levaquin (2) Osteomyelitis of left foot Qualifiers: Osteomyelitis type: other acute Qualified Code(s): M86.172 - Other acute osteomyelitis, left ankle and foot Is this a current diagnosis for this admission?: Yes Plan: With diabetic foot ulcer. Notes patient has had amputation will likely be able to stop antibiotics soon. His white blood cell count is improving. Surgery will reassess tomorrow. If the wound is stable we will establish a discharge plan with follow-up. (3) Hypertension Qualifiers: Hypertension type: essential hypertension Qualified Code(s): I10 - Essential (primary) hypertension Is this a current diagnosis for this admission?: Yes Plan: Blood pressures appear to be well controlled. Continue current regimen. (4) Anemia Is this a current diagnosis for this admission?: Yes Plan: Multifactorial due to post operative blood loss, fluids resulting in hemodilution, probable iron defiency. He had a precipitous drop in hemoglobin due to all these factors however his hemoglobin is stable now (5) Hyponatremia Is this a current diagnosis for this admission?: Yes Plan: Stable (6) Uncontrolled diabetes mellitus Qualifiers: Diabetes mellitus type: type 2 Is this a current diagnosis for this admission?: Yes Plan: On current regimen of NPH and sliding scale the patient has excellent glucose control. Continue current regimen. (7) Alcoholism /alcohol abuse Is this a current diagnosis for this admission?: Yes Plan: History of alcohol abuse. We will monitor for withdrawal/delirium tremens. (8) Full code status Is this a current diagnosis for this admission?: Yes - Time Time Spent with patient: 25-34 minutes Total Critical Time (Minutes): 20 Medications reviewed and adjusted accordingly: Yes Anticipated discharge: Home with Homehealth Within: within 48 hours - Inpatient Certification Based on my medical assessment, after consideration of the patient's comorbidities, presenting symptoms, or acuity I expect that the services needed warrant INPATIENT care.: Yes I certify that my determination is in accordance with my understanding of Medicare's requirements for reasonable and necessary INPATIENT services [42 CFR 412.3e].: Yes Medical Necessity: Need for Pain Control, Need for IV Antibiotics, Need for Surgery
[2019-02-21] MEDS: NYSTATIN 500000 UNIT/5 ML UDCUP PO SCH ×4 (06:39→23:06)
[2019-02-21 06:41] LABS: ANION GAP 9 (5-19); BLOOD UREA NITROGEN 19 mg/dL (7-20); CARBON DIOXIDE 22 mmol/L (22-30); CHLORIDE 107 mmol/L (98-107); GLUCOSE 101 mg/dL (75-110); SODIUM 137.5 mmol/L (137-145)
[2019-02-21] MEDS: INSULIN LISPRO 100 UNIT/ML 3 ML VIAL SUBCUT SCH ×4 (07:31→22:41)
[2019-02-21] MEDS: INSULIN NPH (ISOPHANE), HUMAN 100 UNIT/ML 3 ML SUBCUT SCH ×2 (07:35→16:40)
[2019-02-21] MEDS: DOCUSATE SODIUM 100 MG CAPSULE PO SCH ×2 (09:58→17:57)
[2019-02-21] MEDS: FAMOTIDINE 20 MG TABLET PO SCH ×2 (09:58→23:06)
[2019-02-21] MEDS: OXYCODONE-ACETAMINOPHEN 5-325 MG TABLET PO PRN ×2 (09:59→19:53)
[2019-02-21] MEDS: ENOXAPARIN SODIUM INJ 40 MG/0.4 ML DISP.SYRIN SUBCUT SCH (09:59)
--- NOTE | 2019-02-21 16:05 | PDOC PROGRESS REPORT ---
Subjective Progress Note for:: 02/21/19 Subjective:: Patient is seen resting in bed. He is awake, alert, oriented x3. Denies chest pain, shortness breath or dyspnea. He denies nausea, vomiting or abdominal pain. He continues to tell me he wants to go home. We told him that is up to the surgeons. He denies any other arthralgias of mild allergies except when his left foot. He denies fever chills or night remaining review of systems are negative. Reason For Visit: LEFT INFECTED WITH GANGRENOUS FOOT Physical Exam Vital Signs: Temp Pulse Resp BP Pulse Ox 98.3 F 86 18 121/73 100 02/21/19 11:54 02/21/19 11:54 02/21/19 11:54 02/21/19 11:54 02/21/19 11:54 Intake & Output 02/20/19 02/21/19 02/22/19 06:59 06:59 06:59 Intake Total 750 1786 Output Total 400 Balance 350 1786 Weight 75.3 kg 75 kg 75 kg General appearance: PRESENT: no acute distress, well-developed, well-nourished Head exam: PRESENT: atraumatic, normocephalic Eye exam: PRESENT: conjunctiva pink, EOMI, PERRLA. ABSENT: scleral icterus Ear exam: PRESENT: normal external ear exam Mouth exam: PRESENT: moist, tongue midline Neck exam: ABSENT: carotid bruit, JVD, lymphadenopathy, thyromegaly Respiratory exam: PRESENT: clear to auscultation hollis. ABSENT: rales, rhonchi, wheezes Cardiovascular exam: PRESENT: RRR. ABSENT: diastolic murmur, rubs, systolic murmur Pulses: PRESENT: normal carotid pulses, normal radial pulses Vascular exam: PRESENT: normal capillary refill GI/Abdominal exam: PRESENT: normal bowel sounds, soft. ABSENT: distended, guarding, mass, organolmegaly, rebound, tenderness Rectal exam: PRESENT: deferred Extremities exam: PRESENT: full ROM, tenderness - left forefoot Musculoskeletal exam: PRESENT: ambulatory Neurological exam: PRESENT: alert, awake, oriented to person, oriented to place, oriented to time, oriented to situation, CN II-XII grossly intact. ABSENT: motor sensory deficit Psychiatric exam: PRESENT: anxious Skin exam: PRESENT: dry, intact, warm. ABSENT: cyanosis, rash Results Laboratory Results: 02/20/19 06:23 02/21/19 05:55 02/21/19 05:55 Sodium 137.5 Potassium 5.0 Chloride 107 Carbon Dioxide 22 Anion Gap 9 BUN 19 Creatinine 1.53 H Est GFR ( Amer) 59 L Est GFR (Non-Af Amer) 49 L Glucose 101 Calcium 9.0 Magnesium 1.9 02/06/19 02/06/19 11:00 11:00 Creatine Kinase 28 L CK-MB (CK-2) 0.34 Troponin I < 0.012 Impressions: Chest X-Ray 02/06/19 11:26 IMPRESSION: DIFFUSE INTERSTITIAL SCARRING. NO ACUTE RADIOGRAPHIC FINDING IN THE CHEST. Foot X-Ray 02/06/19 11:28 IMPRESSION: SUPERFICIAL SOFT TISSUE ULCERATION ON THE LATERAL IMAGE. ON THE AP AND OBLIQUE IMAGES THERE IS PATCHY OSTEOPENIA AND INDISTINCT APPEARANCE OF THE CORTEX AT THE BASE OF THE PROXIMAL PHALANX OF THE 3RD AND 4TH TOE. SIMILAR APPEARANCE INVOLVING THE HEAD OF THE 3RD AND 4TH METATARSALS AND POSSIBLY THE 2ND. FINDINGS SUSPICIOUS FOR OSTEOMYELITIS. FURTHER EVALUATION WITH MRI OF THE FOOT MAY BE INDICATED. Assessment and Plan - Diagnosis (1) Left infected gangrenous foot Is this a current diagnosis for this admission?: Yes Plan: The patient was placed on IV antibiotics and seen by surgery. A left transmetatarsal amputation was performed. Surgery is checking on the wound for viability with regard to healing. Patient will likely return home with home health. He can follow-up in the wound care clinic. Continue IV Levaquin (2) Osteomyelitis of left foot Qualifiers: Osteomyelitis type: other acute Qualified Code(s): M86.172 - Other acute osteomyelitis, left ankle and foot Is this a current diagnosis for this admission?: Yes Plan: With diabetic foot ulcer post left forefoot amputation, which is not healing well at the present time His white blood cell count is improving. Surgery will reassess tomorrow. If the wound is stable we will establish a discharge plan with follow-up. (3) Hypertension Qualifiers: Hypertension type: essential hypertension Qualified Code(s): I10 - Essential (primary) hypertension Is this a current diagnosis for this admission?: Yes Plan: Blood pressures appear to be well controlled. Continue current regimen. (4) Anemia Is this a current diagnosis for this admission?: Yes Plan: Multifactorial due to post operative blood loss, fluids resulting in hemodilution, probable iron defiency. He had a precipitous drop in hemoglobin due to all these factors however his hemoglobin is stable now (5) Hyponatremia Is this a current diagnosis for this admission?: Yes Plan: Stable (6) Uncontrolled diabetes mellitus Qualifiers: Diabetes mellitus type: type 2 Is this a current diagnosis for this admission?: Yes Plan: On current regimen of NPH and sliding scale the patient has excellent glucose control. Continue current regimen. (7) Alcoholism /alcohol abuse Is this a current diagnosis for this admission?: Yes Plan: History of alcohol abuse. We will monitor for withdrawal/delirium tremens. (8) Full code status Is this a current diagnosis for this admission?: Yes - Time Time Spent with patient: 25-34 minutes Total Critical Time (Minutes): 20 Medications reviewed and adjusted accordingly: Yes - Inpatient Certification Based on my medical assessment, after consideration of the patient's comorbidities, presenting symptoms, or acuity I expect that the services needed warrant INPATIENT care.: Yes I certify that my determination is in accordance with my understanding of Medicare's requirements for reasonable and necessary INPATIENT services [42 CFR 412.3e].: Yes Medical Necessity: Need for IV Antibiotics, Need for Surgery
[2019-02-21] MEDS: LEVOFLOXACIN 750 MG/D5W RTU 750 MG/150 ML RTUPB IV SCH (17:59)
[2019-02-22] MEDS: NYSTATIN 500000 UNIT/5 ML UDCUP PO SCH ×3 (06:13→17:31)
--- NOTE | 2019-02-22 08:21 | PDOC PROGRESS REPORT ---
Subjective Progress Note for:: 02/22/19 Subjective:: feels well, no pain Reason For Visit: LEFT INFECTED WITH GANGRENOUS FOOT Physical Exam Vital Signs: Temp Pulse Resp BP Pulse Ox 98.4 F 88 16 105/67 97 02/22/19 00:00 02/22/19 00:00 02/22/19 00:00 02/22/19 00:00 02/22/19 00:00 Intake & Output 02/21/19 02/22/19 02/23/19 06:59 06:59 06:59 Intake Total 1786 1053 Output Total 475 Balance 1786 578 Weight 75 kg 76.1 kg General appearance: PRESENT: no acute distress Head exam: PRESENT: normocephalic Eye exam: PRESENT: EOMI Mouth exam: PRESENT: moist Neck exam: PRESENT: full ROM Respiratory exam: PRESENT: clear to auscultation hollis Cardiovascular exam: PRESENT: RRR Pulses: PRESENT: +2 pedal pulses bilateral GI/Abdominal exam: PRESENT: soft Rectal exam: PRESENT: deferred Extremities exam: PRESENT: other - left amp site pink min drainage, packed with iodoform no evidence of purulence Neurological exam: PRESENT: alert, awake, oriented to person, oriented to place, oriented to time, oriented to situation Results Laboratory Results: 02/20/19 06:23 02/21/19 05:55 02/06/19 02/06/19 11:00 11:00 Creatine Kinase 28 L CK-MB (CK-2) 0.34 Troponin I < 0.012 Impressions: Chest X-Ray 02/06/19 11:26 IMPRESSION: DIFFUSE INTERSTITIAL SCARRING. NO ACUTE RADIOGRAPHIC FINDING IN THE CHEST. Foot X-Ray 02/06/19 11:28 IMPRESSION: SUPERFICIAL SOFT TISSUE ULCERATION ON THE LATERAL IMAGE. ON THE AP AND OBLIQUE IMAGES THERE IS PATCHY OSTEOPENIA AND INDISTINCT APPEARANCE OF THE CORTEX AT THE BASE OF THE PROXIMAL PHALANX OF THE 3RD AND 4TH TOE. SIMILAR APPEARANCE INVOLVING THE HEAD OF THE 3RD AND 4TH METATARSALS AND POSSIBLY THE 2ND. FINDINGS SUSPICIOUS FOR OSTEOMYELITIS. FURTHER EVALUATION WITH MRI OF THE FOOT MAY BE INDICATED. Assessment & Plan - Diagnosis (1) Left infected gangrenous foot Is this a current diagnosis for this admission?: Yes - Plan Summary Plan Summary: left transmet stump seems to be healing well 2 areas of packing with iodoform gauze will cont with packing through the weekend and cont iv abx poss home on mon or pt live by himself, cannot do proper wound care.
[2019-02-22] MEDS: OXYCODONE-ACETAMINOPHEN 5-325 MG TABLET PO PRN ×3 (08:32→21:10)
[2019-02-22] MEDS: INSULIN LISPRO 100 UNIT/ML 3 ML VIAL SUBCUT SCH ×4 (10:02→21:10)
[2019-02-22] MEDS: FAMOTIDINE 20 MG TABLET PO SCH ×2 (10:09→21:10)
[2019-02-22] MEDS: ENOXAPARIN SODIUM INJ 40 MG/0.4 ML DISP.SYRIN SUBCUT SCH (10:09)
[2019-02-22] MEDS: INSULIN NPH (ISOPHANE), HUMAN 100 UNIT/ML 3 ML SUBCUT SCH ×2 (10:09→16:40)
[2019-02-22] MEDS: DOCUSATE SODIUM 100 MG CAPSULE PO SCH ×2 (10:09→17:31)
--- NOTE | 2019-02-22 12:17 | PDOC PROGRESS REPORT ---
Subjective Progress Note for:: 02/22/19 Subjective:: Patient is seen resting in bed. He is awake, alert, oriented x3. Denies chest pain, shortness breath or dyspnea. He denies nausea, vomiting or abdominal pain. Pain in his left foot is improved. He denies any other arthralgias of mild allergies except when his left foot. He denies fever chills or night remaining review of systems are negative. Reason For Visit: LEFT INFECTED WITH GANGRENOUS FOOT Physical Exam Vital Signs: Temp Pulse Resp BP Pulse Ox 97.4 F 90 18 101/60 99 02/22/19 07:22 02/22/19 07:22 02/22/19 07:22 02/22/19 07:22 02/22/19 07:22 Intake & Output 02/21/19 02/22/19 02/23/19 06:59 06:59 06:59 Intake Total 1786 1053 Output Total 475 Balance 1786 578 Weight 75 kg 76.1 kg General appearance: PRESENT: no acute distress, well-developed, well-nourished Head exam: PRESENT: atraumatic, normocephalic Eye exam: PRESENT: conjunctiva pink, EOMI, PERRLA. ABSENT: scleral icterus Ear exam: PRESENT: normal external ear exam Mouth exam: PRESENT: moist, tongue midline Teeth exam: PRESENT: poor dentation Neck exam: ABSENT: carotid bruit, JVD, lymphadenopathy, thyromegaly Respiratory exam: PRESENT: clear to auscultation hollis. ABSENT: rales, rhonchi, wheezes Cardiovascular exam: PRESENT: RRR. ABSENT: diastolic murmur, rubs, systolic murmur Pulses: PRESENT: normal carotid pulses, normal radial pulses Vascular exam: PRESENT: normal capillary refill GI/Abdominal exam: PRESENT: normal bowel sounds, soft. ABSENT: distended, guarding, mass, organolmegaly, rebound, tenderness Rectal exam: PRESENT: deferred Extremities exam: PRESENT: full ROM, tenderness Musculoskeletal exam: PRESENT: ambulatory, tenderness - Left forefoot incision Neurological exam: PRESENT: alert, awake, oriented to person, oriented to place, oriented to time, oriented to situation, CN II-XII grossly intact. ABSENT: motor sensory deficit Psychiatric exam: PRESENT: appropriate affect, normal mood. ABSENT: homicidal ideation, suicidal ideation Skin exam: PRESENT: dry, intact, warm. ABSENT: cyanosis, rash Results Laboratory Results: 02/20/19 06:23 02/21/19 05:55 02/06/19 02/06/19 11:00 11:00 Creatine Kinase 28 L CK-MB (CK-2) 0.34 Troponin I < 0.012 Impressions: Chest X-Ray 02/06/19 11:26 IMPRESSION: DIFFUSE INTERSTITIAL SCARRING. NO ACUTE RADIOGRAPHIC FINDING IN THE CHEST. Foot X-Ray 02/06/19 11:28 IMPRESSION: SUPERFICIAL SOFT TISSUE ULCERATION ON THE LATERAL IMAGE. ON THE AP AND OBLIQUE IMAGES THERE IS PATCHY OSTEOPENIA AND INDISTINCT APPEARANCE OF THE CORTEX AT THE BASE OF THE PROXIMAL PHALANX OF THE 3RD AND 4TH TOE. SIMILAR APPEARANCE INVOLVING THE HEAD OF THE 3RD AND 4TH METATARSALS AND POSSIBLY THE 2ND. FINDINGS SUSPICIOUS FOR OSTEOMYELITIS. FURTHER EVALUATION WITH MRI OF THE FOOT MAY BE INDICATED. Assessment and Plan - Diagnosis (1) Left infected gangrenous foot Is this a current diagnosis for this admission?: Yes Plan: The patient was placed on IV antibiotics and seen by surgery. A left transmetatarsal amputation was performed. Surgeon today feels the wound looks better. He would like to continue IV antibiotics over the weekend and possible discharge Sunday or Sunday. He will new home health nursing and follow-up in the wound care clinic (2) Osteomyelitis of left foot Qualifiers: Osteomyelitis type: other acute Qualified Code(s): M86.172 - Other acute osteomyelitis, left ankle and foot Is this a current diagnosis for this admission?: Yes Plan: With diabetic foot ulcer post left forefoot amputation. Surgery is happier today with the wound. Plan is above in #1 (3) Hypertension Qualifiers: Hypertension type: essential hypertension Qualified Code(s): I10 - Essential (primary) hypertension Is this a current diagnosis for this admission?: Yes Plan: Blood pressures appear to be well controlled. Continue current regimen. (4) Anemia Is this a current diagnosis for this admission?: Yes Plan: Multifactorial due to post operative blood loss, fluids resulting in hemodilution, probable iron defiency. He had a precipitous drop in hemoglobin due to all these factors however his hemoglobin is stable now (5) Hyponatremia Is this a current diagnosis for this admission?: Yes Plan: Stable (6) Uncontrolled diabetes mellitus Qualifiers: Diabetes mellitus type: type 2 Is this a current diagnosis for this admission?: Yes Plan: On current regimen of NPH and sliding scale the patient has excellent glucose control. Continue current regimen. (7) Alcoholism /alcohol abuse Is this a current diagnosis for this admission?: Yes Plan: History of alcohol abuse. We will monitor for withdrawal/delirium tremens. (8) Full code status Is this a current diagnosis for this admission?: Yes - Time Time Spent with patient: 25-34 minutes Total Critical Time (Minutes): 25 Medications reviewed and adjusted accordingly: Yes Anticipated discharge: Home with Homehealth Within: within 48 hours
[2019-02-22] MEDS: LEVOFLOXACIN 750 MG/D5W RTU 750 MG/150 ML RTUPB IV SCH (17:31)
[2019-02-23] MEDS: NYSTATIN 500000 UNIT/5 ML UDCUP PO SCH ×4 (00:01→17:38)
[2019-02-23] MEDS: OXYCODONE-ACETAMINOPHEN 5-325 MG TABLET PO PRN ×2 (05:45→17:41)
[2019-02-23] MEDS: INSULIN LISPRO 100 UNIT/ML 3 ML VIAL SUBCUT SCH ×4 (08:31→22:00)
[2019-02-23] MEDS: FAMOTIDINE 20 MG TABLET PO SCH ×2 (10:21→23:19)
[2019-02-23] MEDS: INSULIN NPH (ISOPHANE), HUMAN 100 UNIT/ML 3 ML SUBCUT SCH ×2 (10:21→16:24)
[2019-02-23] MEDS: DOCUSATE SODIUM 100 MG CAPSULE PO SCH ×2 (10:21→17:38)
[2019-02-23] MEDS: ENOXAPARIN SODIUM INJ 40 MG/0.4 ML DISP.SYRIN SUBCUT SCH (10:22)
--- NOTE | 2019-02-23 11:34 | PDOC PROGRESS REPORT ---
Subjective Progress Note for:: 02/23/19 Reason For Visit: LEFT INFECTED WITH GANGRENOUS FOOT Physical Exam Vital Signs: Temp Pulse Resp BP Pulse Ox 97.5 F 86 18 121/66 100 02/23/19 07:58 02/23/19 07:58 02/23/19 07:58 02/23/19 07:58 02/23/19 07:58 Intake & Output 02/22/19 02/23/19 02/24/19 06:59 06:59 06:59 Intake Total 1053 1275 Output Total 475 550 Balance 578 725 Weight 76.1 kg 77.8 kg Results Laboratory Results: 02/20/19 06:23 02/21/19 05:55 02/06/19 02/06/19 11:00 11:00 Creatine Kinase 28 L CK-MB (CK-2) 0.34 Troponin I < 0.012 Impressions: Chest X-Ray 02/06/19 11:26 IMPRESSION: DIFFUSE INTERSTITIAL SCARRING. NO ACUTE RADIOGRAPHIC FINDING IN THE CHEST. Foot X-Ray 02/06/19 11:28 IMPRESSION: SUPERFICIAL SOFT TISSUE ULCERATION ON THE LATERAL IMAGE. ON THE AP AND OBLIQUE IMAGES THERE IS PATCHY OSTEOPENIA AND INDISTINCT APPEARANCE OF THE CORTEX AT THE BASE OF THE PROXIMAL PHALANX OF THE 3RD AND 4TH TOE. SIMILAR APPEARANCE INVOLVING THE HEAD OF THE 3RD AND 4TH METATARSALS AND POSSIBLY THE 2ND. FINDINGS SUSPICIOUS FOR OSTEOMYELITIS. FURTHER EVALUATION WITH MRI OF THE FOOT MAY BE INDICATED. Assessment & Plan - Diagnosis (1) Left infected gangrenous foot Is this a current diagnosis for this admission?: Yes (2) Uncontrolled diabetes mellitus Qualifiers: Diabetes mellitus type: type 2 Is this a current diagnosis for this admission?: Yes - Plan Summary Plan Summary: 48-year-old male status post midfoot amputation on the left. Patient reports that he is doing well today. I have encouraged him to ambulate on the heel, but the patient reports that it is "hard to do". I have looked underneath the dressing, and there is no sign of active purulence or growing erythema. Continue with dressing changes and medical management. Will follow.
--- NOTE | 2019-02-23 17:24 | PDOC PROGRESS REPORT ---
Subjective Progress Note for:: 02/23/19 Subjective:: ANN RAMIREZ is a 48 year old male male patient with past medical history of type 2 diabetes mellitus, hypertension, alcoholism presents to ED for left foot pain and ulceration now s/p midfoot amputation. Patient was seen on afternoon rounds. He was ambulating in his room. He reports that his pain is well controlled at this time; he is looking forward to possible discharge tomorrow. He tells me that he intends to return to work right away and will be capable of doing his dressing changes on his own. I am concerned that he may not be able to visualize his foot for any required wound packing; he states that he does not have a family member or friend available to assist. We will need to ask discharge planning/social work to assist with making wound care arrangements. Otherwise, he states that he is feeling well and has no new complaints. He denies fever, chills, chest pain, palpitations, dyspnea, cough, abdominal pain, nausea vomiting diarrhea and constipation. No concerns per nursing. Reason For Visit: LEFT INFECTED WITH GANGRENOUS FOOT Physical Exam Vital Signs: Temp Pulse Resp BP Pulse Ox 97.4 F 89 18 100/57 L 100 02/23/19 11:50 02/23/19 11:50 02/23/19 11:50 02/23/19 11:50 02/23/19 11:50 Intake & Output 02/22/19 02/23/19 02/24/19 06:59 06:59 06:59 Intake Total 1053 1275 Output Total 475 550 Balance 578 725 Weight 76.1 kg 77.8 kg General appearance: PRESENT: no acute distress, well-developed, well-nourished Head exam: PRESENT: atraumatic, normocephalic Eye exam: PRESENT: conjunctiva pink, EOMI, PERRLA. ABSENT: scleral icterus Mouth exam: PRESENT: moist, tongue midline Teeth exam: PRESENT: poor dentation Respiratory exam: PRESENT: clear to auscultation hollis, symmetrical, unlabored. ABSENT: rales, rhonchi, wheezes Cardiovascular exam: PRESENT: RRR, +S1, +S2. ABSENT: diastolic murmur, rubs, systolic murmur Pulses: PRESENT: normal dorsalis pedis pul Vascular exam: PRESENT: normal capillary refill GI/Abdominal exam: PRESENT: normal bowel sounds, soft. ABSENT: distended, guarding, mass, organolmegaly, rebound, tenderness Rectal exam: PRESENT: deferred Extremities exam: PRESENT: full ROM, other - Left midfoot amputation. ABSENT: calf tenderness, clubbing, pedal edema Musculoskeletal exam: PRESENT: ambulatory Neurological exam: PRESENT: alert, awake, oriented to person, oriented to place, oriented to time, oriented to situation, CN II-XII grossly intact. ABSENT: motor sensory deficit Psychiatric exam: PRESENT: appropriate affect, normal mood. ABSENT: homicidal ideation, suicidal ideation Skin exam: PRESENT: dry, warm, other - Surgical site not visualized; clean dry dressing in place.. ABSENT: cyanosis, rash Results Laboratory Results: 02/20/19 06:23 02/21/19 05:55 02/06/19 02/06/19 11:00 11:00 Creatine Kinase 28 L CK-MB (CK-2) 0.34 Troponin I < 0.012 Impressions: Chest X-Ray 02/06/19 11:26 IMPRESSION: DIFFUSE INTERSTITIAL SCARRING. NO ACUTE RADIOGRAPHIC FINDING IN THE CHEST. Foot X-Ray 02/06/19 11:28 IMPRESSION: SUPERFICIAL SOFT TISSUE ULCERATION ON THE LATERAL IMAGE. ON THE AP AND OBLIQUE IMAGES THERE IS PATCHY OSTEOPENIA AND INDISTINCT APPEARANCE OF THE CORTEX AT THE BASE OF THE PROXIMAL PHALANX OF THE 3RD AND 4TH TOE. SIMILAR APPEARANCE INVOLVING THE HEAD OF THE 3RD AND 4TH METATARSALS AND POSSIBLY THE 2ND. FINDINGS SUSPICIOUS FOR OSTEOMYELITIS. FURTHER EVALUATION WITH MRI OF THE FOOT MAY BE INDICATED. Assessment and Plan - Diagnosis (1) Left infected gangrenous foot Is this a current diagnosis for this admission?: Yes Plan: The patient was placed on IV antibiotics and seen by surgery. A left transmetatarsal amputation was performed; POD #10 Surgery recommends continued IV antibiotics; on IV Levaquin, Possible d/c tomorrow. Discharge planning is consulted for home health nursing (wound care) and follow- up in the wound care clinic. (2) Anemia Is this a current diagnosis for this admission?: Yes Plan: Multifactorial due to post operative blood loss, fluids resulting in hemodilution, probable iron defiency. He had a precipitous drop in hemoglobin due to all these factors however his hemoglobin is stable now at 9.2 and trending up. (3) Hypertension Qualifiers: Hypertension type: essential hypertension Qualified Code(s): I10 - Essential (primary) hypertension Is this a current diagnosis for this admission?: Yes Plan: Patient reports a history of hypertension. He has been normotensive without blood pressure medications this admission. Continue to monitor and initiate antihypertensives as indicated. (4) Osteomyelitis of left foot Qualifiers: Osteomyelitis type: other acute Qualified Code(s): M86.172 - Other acute osteomyelitis, left ankle and foot Is this a current diagnosis for this admission?: Yes Plan: With diabetic foot ulcer post left forefoot amputation. Plan is above in #1 (5) Uncontrolled diabetes mellitus Qualifiers: Diabetes mellitus type: type 2 Is this a current diagnosis for this admission?: Yes Plan: A1c 10%. He is a self-pay; will need to keep this in mind when prescribing his insulin. Currently on NPH 15 units BID. Will reduce dose due to hypoglycemic event today; NPH 10 units twice daily. Accu-Cheks before meals and at bedtime with Humalog for sliding scale coverage. (6) Alcoholism /alcohol abuse Is this a current diagnosis for this admission?: Yes Plan: History of alcohol abuse. We will monitor for withdrawal/delirium tremens. Multivitamin, folic acid, and thiamine supplementation. - Time Time Spent with patient: 15-24 minutes Medications reviewed and adjusted accordingly: Yes Anticipated discharge: Home
[2019-02-23] MEDS: LEVOFLOXACIN 750 MG/D5W RTU 750 MG/150 ML RTUPB IV SCH (17:38)
[2019-02-23] MEDS ORDERED: OXYCODONE-ACETAMINOPHEN 5-325 MG TABLET PO PRN (18:55)
[2019-02-24] MEDS: NYSTATIN 500000 UNIT/5 ML UDCUP PO SCH (01:11)
--- NOTE | 2019-02-24 07:55 | PDOC PROGRESS REPORT ---
Subjective Progress Note for:: 02/24/19 Subjective:: feels will, nol c/o pain Reason For Visit: LEFT INFECTED WITH GANGRENOUS FOOT Physical Exam Vital Signs: Temp Pulse Resp BP Pulse Ox 98.1 F 95 18 130/77 H 99 02/24/19 07:29 02/24/19 07:29 02/24/19 07:29 02/24/19 07:29 02/24/19 07:29 Intake & Output 02/23/19 02/24/19 02/25/19 06:59 06:59 06:59 Intake Total 1275 653 Output Total 550 Balance 725 653 Weight 77.8 kg General appearance: PRESENT: no acute distress Head exam: PRESENT: normocephalic Eye exam: PRESENT: EOMI Mouth exam: PRESENT: moist Neck exam: PRESENT: full ROM Respiratory exam: PRESENT: clear to auscultation hollis Cardiovascular exam: PRESENT: RRR Pulses: PRESENT: normal radial pulses, normal femoral pulses, +1 pedal pulses bilateral GI/Abdominal exam: PRESENT: soft Rectal exam: PRESENT: deferred Extremities exam: PRESENT: other - left foot healing no evidence of purulent drainage with compression packing 2 small open wounds iwth iodoform richard drain min op no cellulitis Musculoskeletal exam: PRESENT: ambulatory Neurological exam: PRESENT: alert, awake, oriented to person, oriented to place, oriented to time, oriented to situation Skin exam: PRESENT: dry Results Laboratory Results: 02/20/19 06:23 02/21/19 05:55 02/06/19 02/06/19 11:00 11:00 Creatine Kinase 28 L CK-MB (CK-2) 0.34 Troponin I < 0.012 Impressions: Chest X-Ray 02/06/19 11:26 IMPRESSION: DIFFUSE INTERSTITIAL SCARRING. NO ACUTE RADIOGRAPHIC FINDING IN THE CHEST. Foot X-Ray 02/06/19 11:28 IMPRESSION: SUPERFICIAL SOFT TISSUE ULCERATION ON THE LATERAL IMAGE. ON THE AP AND OBLIQUE IMAGES THERE IS PATCHY OSTEOPENIA AND INDISTINCT APPEARANCE OF THE CORTEX AT THE BASE OF THE PROXIMAL PHALANX OF THE 3RD AND 4TH TOE. SIMILAR APPEARANCE INVOLVING THE HEAD OF THE 3RD AND 4TH METATARSALS AND POSSIBLY THE 2ND. FINDINGS SUSPICIOUS FOR OSTEOMYELITIS. FURTHER EVALUATION WITH MRI OF THE FOOT MAY BE INDICATED. Assessment & Plan - Diagnosis (1) Left infected gangrenous foot Is this a current diagnosis for this admission?: Yes - Plan Summary Plan Summary: left forefoot gangrene s/p transmet amputation able to ambulate on heel wound being packed with iodoform gauze ok now for pt to be discharged if home health can be arranged for at least daily dressing changes.
[2019-02-24] MEDS: INSULIN LISPRO 100 UNIT/ML 3 ML VIAL SUBCUT SCH ×3 (09:14→17:32)
[2019-02-24] MEDS: INSULIN NPH (ISOPHANE), HUMAN 100 UNIT/ML 3 ML SUBCUT SCH ×2 (09:28→17:49)
[2019-02-24] MEDS: DOCUSATE SODIUM 100 MG CAPSULE PO SCH ×2 (09:28→17:49)
[2019-02-24] MEDS: ENOXAPARIN SODIUM INJ 40 MG/0.4 ML DISP.SYRIN SUBCUT SCH (09:29)
[2019-02-24] MEDS: FAMOTIDINE 20 MG TABLET PO SCH (09:29)
[2019-02-24] MEDS ORDERED: MULTIVITAMIN TABLET PO SCH (10:00)
[2019-02-24] MEDS ORDERED: FOLIC ACID 1 MG TABLET PO SCH (10:00)
[2019-02-24] MEDS ORDERED: THIAMINE HCL 100 MG TABLET PO SCH (10:00)
[2019-02-24 18:23] VITALS: BP 107/74
--- NOTE | 2019-02-25 18:18 | PDOC DISCHARGE SUMMARY ---
General - Admit/Disc Date/PCP Admission Date/Primary Care Provider: 02/06/19 14:10 Discharge Date: 02/24/19 - Discharge Diagnosis (1) Left infected gangrenous foot Is this a current diagnosis for this admission?: Yes Summary: The patient was admitted to the medical floor and empirically placed on IV Levaquin. Surgery was consulted with recommendations for BKA; patient declined and requested more conservative interventions. HE is dave s/p left transmetatarsal amputation was performed; POD #11 Blood cultures were negative at 5 days. Wound cultures revealed Staph xylosus and Group B beta strep; sensitive to Levaquin. Discussed with surgery; does not require continued therapy post discharge. On day of discharge, patient is in stable condition with adequately controlled p ain. Discharge planning has made arrangements for home health nursing (wound care teaching to patient and family member) and physical therapy. He is to follow up with the [facility] on 03/06/[address] Salinas (surgery clinic) on 02/28/19. He is advised to return to the emergency department as needed for any concerning symptoms. (2) Anemia Is this a current diagnosis for this admission?: Yes Summary: Improved. Multifactorial due to post operative blood loss, IV fluids resulting in hemodilution, and iron deficiency. He had a precipitous drop in hemoglobin due but did not require transfusions. Hgb is now stable at 9.2 and trending up. No evidence/concern for ongoing blood loss. (3) Hypertension Is this a current diagnosis for this admission?: Yes Summary: Patient reports a history of hypertension. He has been normotensive without blood pressure medications this admission. Recommend low sodium diet and routine monitoring/management per PCP. (4) Osteomyelitis of left foot Is this a current diagnosis for this admission?: Yes Summary: With diabetic foot ulcer status post left forefoot amputation. Evaluation and management as above. (5) Uncontrolled diabetes mellitus Is this a current diagnosis for this admission?: Yes Summary: A1C 10% Patient was placed on a consistent carb diet. His blood glucose was well controlled with NPH twice daily. He had the opportunity to meet with the critical care registered nurse and dietitian teaching. He is discharged with prescriptions for a glucometer kit with lancets and test strips, insulin needles, NPH 10 units BID, and Humalog for sliding scale coverage. (6) Alcoholism /alcohol abuse Is this a current diagnosis for this admission?: Yes Summary: Hx EtOH abuse. No symptoms of withdrawal during his admission. He was supported with p.o. multivitamin, thiamin, and folic acid supplement ation; recommend that he continue at discharge. - Additional Information Resuscitation Status: Full Code Discharge Diet: Diabetic Discharge Activity: Activity As Tolerated, Balance Activity w/Rest Prescriptions: Blood-Glucose Meter [Blood Glucose Monitoring] 1 each [facility] #1 kit Folic Acid [Folvite 1 mg Tablet] 1 mg PO DAILY #90 tablet Insulin Lispro [Humalog Insulin (Lispro) 100 unit/mL] 0 - 12 unit SUBCUT ACHS #1 vial Multivitamin [Tab-A-Denzel (Multiple Vitamin) Tablet] 1 tab PO DAILY #90 tablet NPH, Human Insulin Isophane [Humulin N (NPH) Insulin 100 unit/mL] 10 unit SUBCUT BIDACBS #1 vial Oxycodone HCl/Acetaminophen [Percocet 5-325 mg Tablet] 1 tab PO Q6HP PRN #12 tablet PRN Reason: Syringe and Needle,Insulin,1Ml [Insulin Syringe] 1 each [facility] #120 disp.syrin Thiamine HCl [Thiamine 100 mg Tablet] 100 mg PO DAILY #90 tablet Home Medications: Blood-Glucose Meter [Blood Glucose Monitoring] 1 each [facility] #1 kit 02/24/19 Docusate Sodium [Colace 100 mg Capsule] 100 mg PO BID capsule 02/24/19 Folic Acid [Folvite 1 mg Tablet] 1 mg PO DAILY #90 tablet 02/24/19 Insulin Lispro [Humalog Insulin (Lispro) 100 unit/mL] 0 - 12 unit SUBCUT [facility] #1 vial 02/24/19 Multivitamin [Tab-A-Denzel (Multiple Vitamin) Tablet] 1 tab PO DAILY #90 tablet 0 02/24/19 NPH, Human Insulin Isophane [Humulin N (NPH) Insulin 100 unit/mL] 10 unit SUBCUT BIDACBS #1 vial 02/24/19 Oxycodone HCl/Acetaminophen [Percocet 5-325 mg Tablet] 1 tab PO Q6HP PRN #12 tablet 02/24/19 Syringe and Needle,Insulin,1Ml [Insulin Syringe] 1 each [facility] #120 disp.syrin 02/24/19 Thiamine HCl [Thiamine 100 mg Tablet] 100 mg PO DAILY #90 tablet 02/24/19 History of Present Illness History of Present Illness: Per H&P by Dr. Blanton: ANN RAMIREZ is a 48 year old male male patient with past medical history of type 2 diabetes mellitus, hypertension, alcoholism presents to ED for left foot pain and ulceration. Patient brought by friends and family members. Reportedly patient has left foot ulcer which has been going on for the last 6 weeks. Patient denies any fever chills palpitation or diaphoresis. Patient is a known alcoholic and he drinks on daily basis. Patient is also noncompliant with his medication and his hemoglobin A1c 5 years ago was 10.8. Upon my evaluation the patient's left foot is swollen erythematou s and the second and third toe are gangrenous. There is also a wound on the metatarsal area. Dr. Marie consulted by the ER attending to evaluate the patient in for possible incision drainage and total debridement. I think patient possibly may need amputation of the gangrenous toe. Physical Exam Vital Signs: Temp Pulse Resp BP Pulse Ox 97.8 F 95 15 107/74 100 02/24/19 18:21 02/24/19 18:21 02/24/19 18:21 02/24/19 18:21 02/24/19 18:21 Intake & Output 02/24/19 02/25/19 02/26/19 06:59 06:59 06:59 Intake Total 653 355 Output Total 400 Balance 653 -45 General appearance: PRESENT: no acute distress, well-developed, well-nourished Head exam: PRESENT: atraumatic, normocephalic Eye exam: PRESENT: conjunctiva pink, EOMI, PERRLA. ABSENT: scleral icterus Mouth exam: PRESENT: moist, tongue midline Respiratory exam: PRESENT: clear to auscultation hollis. ABSENT: rales, rhonchi, wheezes Cardiovascular exam: PRESENT: RRR. ABSENT: diastolic murmur, rubs, systolic murmur Pulses: PRESENT: normal dorsalis pedis pul Vascular exam: PRESENT: normal capillary refill GI/Abdominal exam: PRESENT: normal bowel sounds, soft. ABSENT: distended, guarding, mass, organolmegaly, rebound, tenderness Rectal exam: PRESENT: deferred Extremities exam: PRESENT: full ROM, other - Lt midfoot amputation. ABSENT: calf tenderness, clubbing, pedal edema Neurological exam: PRESENT: alert, awake, oriented to person, oriented to place, oriented to time, oriented to situation, CN II-XII grossly intact. ABSENT: motor sensory deficit Psychiatric exam: PRESENT: appropriate affect, normal mood. ABSENT: homicidal ideation, suicidal ideation Skin exam: PRESENT: dry, warm. ABSENT: cyanosis, rash Results Laboratory Results: 02/20/19 06:23 02/21/19 05:55 02/06/19 02/06/19 11:00 11:00 Creatine Kinase 28 L CK-MB (CK-2) 0.34 Troponin I < 0.012 Impressions: Chest X-Ray 02/06/19 11:26 IMPRESSION: DIFFUSE INTERSTITIAL SCARRING. NO ACUTE RADIOGRAPHIC FINDING IN THE CHEST. Foot X-Ray 02/06/19 11:28 IMPRESSION: SUPERFICIAL SOFT TISSUE ULCERATION ON THE LATERAL IMAGE. ON THE AP AND OBLIQUE IMAGES THERE IS PATCHY OSTEOPENIA AND INDISTINCT APPEARANCE OF THE CORTEX AT THE BASE OF THE PROXIMAL PHALANX OF THE 3RD AND 4TH TOE. SIMILAR APPEARANCE INVOLVING THE HEAD OF THE 3RD AND 4TH METATARSALS AND POSSIBLY THE 2ND. FINDINGS SUSPICIOUS FOR OSTEOMYELITIS. FURTHER EVALUATION WITH MRI OF THE FOOT MAY BE INDICATED. Qualifiers - * PATIENT BEING DISCHARGED WITH ANY OF THE FOLLOWING DIAGNOSIS: No
== END 2019-02-24 18:20 | disposition home health service (06) | DRG 240 ==
LOC: ER 09:51 → EH 14:10 → 4S 18:05
PROVIDERS: ADMIT Internal Medicine; ATTEND Internal Medicine
PROC: 0Y6S0Z0 Detachment at Left 2nd Toe, Complete, Open Approach (ICD-10-PCS; 2019-02-06)
PROC: 0Y6W0Z0 Detachment at Left 4th Toe, Complete, Open Approach (ICD-10-PCS; 2019-02-06)
PROC: 0Y6U0Z0 Detachment at Left 3rd Toe, Complete, Open Approach (ICD-10-PCS; 2019-02-06)
PROC: 0HBNXZZ Excision of Left Foot Skin, External Approach (ICD-10-PCS; 2019-02-10)
PROC: 0Y6N0ZB Detachment at Left Foot, Partial 2nd Ray, Open Approach (ICD-10-PCS; 2019-02-16)
PROC: 0Y6N0ZC Detachment at Left Foot, Partial 3rd Ray, Open Approach (ICD-10-PCS; 2019-02-16)
PROC: 0Y6N0ZD Detachment at Left Foot, Partial 4th Ray, Open Approach (ICD-10-PCS; 2019-02-16)
PROC: 0Y6N0ZF Detachment at Left Foot, Partial 5th Ray, Open Approach (ICD-10-PCS; 2019-02-16)
PROC: 0Y6N0Z9 Detachment at Left Foot, Partial 1st Ray, Open Approach (ICD-10-PCS; principal; 2019-02-16 14:00)
DX: E11.52 Type 2 diabetes mellitus with diabetic peripheral angiopathy with gangrene (principal); I96 Gangrene, not elsewhere classified; M86.172 Other acute osteomyelitis, left ankle and foot; E87.1 Hypo-osmolality and hyponatremia; L97.524 Non-pressure chronic ulcer of other part of left foot with necrosis of bone; E11.621 Type 2 diabetes mellitus with foot ulcer; E11.65 Type 2 diabetes mellitus with hyperglycemia; E11.69 Type 2 diabetes mellitus with other specified complication; F10.20 Alcohol dependence, uncomplicated; I10 Essential (primary) hypertension; D72.829 Elevated white blood cell count, unspecified; B95.7 Other staphylococcus as the cause of diseases classified elsewhere; B95.1 Streptococcus, group B, as the cause of diseases classified elsewhere; D50.0 Iron deficiency anemia secondary to blood loss (chronic); Z91.14 Patient's other noncompliance with medication regimen; Z79.4 Long term (current) use of insulin
CPT/HCPCS: 01480; 36415; 71046; 80048; 80053; 80069; 80076; 80202; 80307; 81001; 82140; 82550; 82553; 82962; 83036; 83605; 83735; 84484; 85025; 85027; 87040; 87070; 87075; 87077; 87186; 87205; 88305; 88307; 88311; 93005; 93010; 93926; 93971; 96361; 96365; 96375; 99285; A6266; J0131; J0330; J0690; J1170; J1650; J1815; J1885; J1956; J2250; J2270; J2405; J2543; J2704; J2765; J3010; J3370; J3490; J7060; J7120

== ENCOUNTER 2019-03-13 07:29 | Inpatient (IN) | payer SELFPAY ==
[~2019-03-13 07:29] MED LIST: CEFAZOLIN 2 GM/D5W RTU 2 GM/50 ML RTUPB IV ONE; CEFAZOLIN 2 GM/D5W RTU 2 GM/50 ML RTUPB IV PRN
[2019-03-13] MEDS ORDERED: KETOROLAC TROMETHAMINE 60 MG/2 ML SDV ONE (08:35)
[2019-03-13] MEDS ORDERED: ONDANSETRON HCL INJ/PF 4 MG/2 ML SDV ONE (08:36)
[2019-03-13] MEDS ORDERED: ACETAMINOPHEN 1,000 MG/100 ML RTUPB IV ONE (08:36)
[2019-03-13] MEDS ORDERED: MIDAZOLAM 2 MG/2 ML INJ ONE (08:36)
[2019-03-13] MEDS ORDERED: DEXAMETHASONE SOD PHOSPHATE INJ 4 MG/1 ML VIAL ONE (08:36)
[2019-03-13] MEDS ORDERED: FENTANYL CITRATE INJ/PF 100 MCG/2 ML AMPUL ONE ×2 (08:36→11:49)
[2019-03-13] MEDS ORDERED: PROPOFOL INJ 200 MG/20 ML VIAL IV ONE ×2 (08:36→08:44)
[2019-03-13 08:48] LABS: HEMATOCRIT 25.1 % (37.9-51.0); HEMOGLOBIN 8.7 g/dL (13.5-17.0); MEAN CORPUSCULAR HEMOGLOBIN 33.8 pg (27.0-33.4); MEAN CORPUSCULAR HGB CONC 34.7 g/dL (32.0-36.0); MEAN CORPUSCULAR VOLUME 98 fl (80-97); PLATELET COUNT 198 10^3/uL (150-450); RED BLOOD COUNT 2.57 10^6/uL (4.35-5.55); RED CELL DISTRIBUTION WIDTH 14.6 % (11.5-14.0); WHITE BLOOD COUNT 8.6 10^3/uL (4.0-10.5)
[2019-03-13 09:19] LABS: ANION GAP 9 (5-19); BLOOD UREA NITROGEN 24 mg/dL (7-20); CALCIUM 8.8 mg/dL (8.4-10.2); CARBON DIOXIDE 20 mmol/L (22-30); CHLORIDE 100 mmol/L (98-107); GLUCOSE 150 mg/dL (75-110); SODIUM 128.9 mmol/L (137-145)
[2019-03-13] MEDS ORDERED: FENTANYL CITRATE INJ/PF 100 MCG/2 ML AMPUL IV PRN ×3 (09:32)
[2019-03-13] MEDS ORDERED: ONDANSETRON HCL INJ/PF 4 MG/2 ML SDV IV PRN (09:32)
[2019-03-13] MEDS ORDERED: DIPHENHYDRAMINE HCL 50 MG/ML VIAL IV PRN (09:32)
[2019-03-13] MEDS ORDERED: MEPERIDINE HCL/PF INJ 25 MG/1 ML DISP.SYRIN IV PRN (09:32)
[2019-03-13] MEDS ORDERED: OXYCODONE-ACETAMINOPHEN 5-325 MG TABLET PO PRN ×2 (09:32)
[2019-03-13] MEDS ORDERED: MORPHINE SULFATE 10 MG/ML INJ IV PRN (09:32)
[2019-03-13] MEDS ORDERED: PROMETHAZINE HCL INJ 25 MG/1 ML VIAL IV PRN ×2 (09:32)
[2019-03-13] MEDS ORDERED: GLUCAGON,HUMAN RECOMB 1 MG INJ IM PRN (10:52)
[2019-03-13] MEDS ORDERED: DEXTROSE 50%-WATER 25 GM/50 ML DISP.SYRIN IV PRN ×2 (10:52)
[2019-03-13] MEDS ORDERED: DEXTROSE 40% GEL 15 GM TUBE PO PRN ×2 (10:52)
--- NOTE | 2019-03-13 10:56 | Operative Report ---
Nonrecallable Operative Report DATE OF SURGERY: 03/13/19 PREOPERATIVE DIAGNOSIS: diabetic foot infection POSTOPERATIVE DIAGNOSIS: diabetic foot infection OPERATION: left bka SURGEON: JUANA HERNANDEZ ANESTHESIA: Spinal TISSUE REMOVED OR ALTERED: left bka COMPLICATIONS: none ESTIMATED BLOOD LOSS: 200 INTRAOPERATIVE FINDINGS: see dictation PROCEDURE: see dictation
[2019-03-13] MEDS ORDERED: INSULIN REG, HUMAN 100 UNIT/ML 3 ML VIAL (PYX) SUBCUT SCH (12:00)
[2019-03-13] MEDS: MORPHINE SULFATE 10 MG/ML INJ IV PRN ×2 (13:16→21:50)
[2019-03-13] MEDS: NORMAL SALINE 1000 ML 1,000 ML IV PRN ×2 (13:16→21:51)
[2019-03-13] MEDS ORDERED: METOCLOPRAMIDE HCL INJ/PF 10 MG/2 ML SDV ONE (14:31)
[2019-03-13] MEDS: INSULIN REG, HUMAN 100 UNIT/ML 3 ML VIAL (PYX) SUBCUT SCH ×2 (14:44→15:47)
--- NOTE | 2019-03-13 14:45 | PDOC CONSULTATION ---
Consultation Consult Date: 03/13/19 Attending physician:: JUANA HERNANDEZ Consult reason:: dm History of Present Illness Admission Date/PCP: 03/13/19 07:29 Patient complains of: Status post left BKA History of Present Illness: ANN RAMIREZ is a 48 year old male With history of type 2 diabetes mellitus, hypertension, alcohol abuse admitted to the floor after left BKA 5.left foot gangrene. Medical consult was called for management of the diabetes. Patient is presently receiving IV morphine 4 mg IV every 4 as needed still complaining of pain scale of 5/10. Patient has other complaints. Past Medical History Cardiac Medical History: Reports: Hypertension Denies: Atrial Fibrillation, Congestive Heart Failure, Coronary Artery Disease, Myocardial Infarction, Hyperlipidema, Peripheral Vascular Disease, Pulmonary Embolism, Heart Murmur Pulmonary Medical History: Denies: Asthma, Bronchitis, Chronic Obstructive Pulmonary Disease (COPD), Pneumonia, Respiratory Failure, Sleep Apnea, Tuberculosis Neurological Medical History: Denies: Seizures Endocrine Medical History: Reports: Diabetes Mellitus Type 2 Denies: Hyperthyroidism, Hypothyroidism Renal/ Medical History: Denies: End Stage Renal Disease Malignancy Medical History: Denies: Leukemia, Lung Cancer GI Medical History: Denies: Crohn's Disease, Gastroesophageal Reflux Disease, Hiatal Hernia Musculoskeltal Medical History: Denies: Arthritis, Fibromyalgia Psychiatric Medical History: Reports: Alcohol Dependency Denies: Dementia, Depression Hematology: Denies: Anemia, Hemophilia, Sickle Cell Disease Infectious Medical History: Denies: HIV Past Surgical History Past Surgical History: Denies: Appendectomy, Cholecystectomy, Colostomy, Coronary Artery Bypass Graft, Gastric Bypass Surgery, Herniorrhaphy, Pacemaker, Tonsillectomy Social History Information Source: Patient Lives with: Family Smoking Status: Never Smoker Frequency of Alcohol Use: Heavy Hx Recreational Drug Use: No Drugs: None Hx Prescription Drug Abuse: No Family History Family History: Reviewed & Not Pertinent Parental Family History Reviewed: Yes - Family history of diabetes Children Family History Reviewed: Yes Sibling(s) Family History Reviewed.: Yes Medication/Allergy Home Medications: Folic Acid [Folvite 1 mg Tablet] 1 mg PO DAILY #90 tablet 02/24/19 Insulin Lispro [Humalog Insulin (Lispro) 100 unit/mL] 0 - 12 unit SUBCUT ACHS #1 vial 02/24/19 Multivitamin [Tab-A-Denzel (Multiple Vitamin) Tablet] 1 tab PO DAILY #90 tablet 02/24/19 NPH, Human Insulin Isophane [Humulin N (NPH) Insulin 100 unit/mL] 10 unit SUBCUT BIDACBS #1 vial 02/24/19 Thiamine HCl [Thiamine 100 mg Tablet] 100 mg PO DAILY #90 tablet 02/24/19 Allergies/Adverse Reactions: No Known Allergies Allergy (Verified 02/06/19 10:15) Review of Systems Constitutional: ABSENT: fever(s), weakness, weight gain, weight loss Eyes: ABSENT: visual disturbances Ears: ABSENT: hearing changes Nose, Mouth, and Throat: ABSENT: sore throat Respiratory: ABSENT: dyspnea, hemoptysis Gastrointestinal: ABSENT: diarrhea, nausea, vomiting Musculoskeletal: PRESENT: other - Left stump pain Neurological: ABSENT: abnormal gait, abnormal speech, confusion, dizziness, focal weakness, syncope Psychiatric: ABSENT: anxiety, depression, homidical ideation, suicidal ideation Physical Exam Vital Signs: Temp Pulse Resp BP Pulse Ox 97.5 F 91 16 155/80 H 98 03/13/19 14:00 03/13/19 14:00 03/13/19 14:00 03/13/19 14:00 03/13/19 14:00 Intake & Output 03/12/19 03/13/19 03/14/19 06:59 06:59 06:59 Intake Total 2850 Output Total 800 Balance 2049 Weight 75 kg General appearance: PRESENT: obese, other - In moderate distress Head exam: PRESENT: atraumatic Eye exam: PRESENT: PERRLA Mouth exam: PRESENT: moist, tongue midline Neck exam: ABSENT: carotid bruit, JVD, lymphadenopathy, thyromegaly Respiratory exam: PRESENT: decreased breath sounds Cardiovascular exam: PRESENT: tachycardia GI/Abdominal exam: PRESENT: normal bowel sounds, soft. ABSENT: distended, guarding, mass, organolmegaly, rebound, tenderness Extremities exam: PRESENT: other - Left BKA Neurological exam: PRESENT: alert, awake, oriented to person, oriented to place, oriented to time, oriented to situation, CN II-XII grossly intact. ABSENT: motor sensory deficit Psychiatric exam: PRESENT: appropriate affect, normal mood. ABSENT: homicidal ideation, suicidal ideation Results Laboratory Results: 03/13/19 08:30 03/13/19 08:30 03/13/19 03/13/19 08:30 08:30 WBC 8.6 RBC 2.57 L Hgb 8.7 L Hct 25.1 L MCV 98 H MCH 33.8 H MCHC 34.7 RDW 14.6 H Plt Count 198 Sodium 128.9 L Potassium 5.0 Chloride 100 Carbon Dioxide 20 L Anion Gap 9 BUN 24 H Creatinine 1.32 H Est GFR ( Amer) > 60 Est GFR (Non-Af Amer) 58 L Glucose 150 H Calcium 8.8 Assessment and Plan - Diagnosis (1) Left infected gangrenous foot Is this a current diagnosis for this admission?: Yes Plan: 03/13/2019-patient was admitted for left ankle and his foot status post BKA. Medical consult was called for management of diabetes. Patient given the pain s samia of 5 x 10 on morphine 4 mg IV every 4 as needed for pain. Pain management as per surgical team. On Zosyn 3.375 g 6hrs (2) Type 2 DM with CKD and hypertension Is this a current diagnosis for this admission?: No Plan: 03/13/2019-patient has a history of type 2 diabetes mellitus in association with chronic kidney disease and hypertension. Patient is noncompliant to medication. Presently on Lantus 10 units twice a day at home and insulin sliding scale plans to continue the same treatment. Started on diabetic diet dietary consult was requested. (3) Hypertension Qualifiers: Hypertension type: essential hypertension Qualified Code(s): I10 - [facility] (primary) hypertension Is this a current diagnosis for this admission?: No Plan: 03/13/2019-patient is given history of hypertension but not take any home medications. Started on lisinopril 2.5 mg p.o. daily. Latest blood pressure is 155/80. He is receiving IV fluids at 125 cc/h. (4) Anemia Is this a current diagnosis for this admission?: No Plan: 03/13/2019-patient's hemoglobin is 8.7. Gradual decline in hemoglobin since December. Anemia of chronic disease may be secondary to CKD. Plan to repeat hemoglobin tomorrow if necessary plan to give 1 unit of PRBC. (5) Hyponatremia Is this a current diagnosis for this admission?: Yes Plan: 03/13/2019-patient's serum sodium is 128.9. Hyper natremia most likely secondary to heavy alcohol use. Plan is to closely monitor the serum sodium levels. Cu rrently is on IV fluids normal saline at 125 cc/h. (6) Alcoholism /alcohol abuse Is this a current diagnosis for this admission?: Yes Plan: 03/13/2019-patient history of heavy alcohol use. To start him on Ativan 1 mg IV every 4 as needed to watch for the DTs. (7) CKD (chronic kidney disease) Is this a current diagnosis for this admission?: Yes Plan: 03/13/2019-patient's creatinine is 1.32. GFR is more than 60. Chronic CKD may be secondary to uncontrolled diabetes. - Time Time Spent with patient: 25-34 minutes Medications reviewed and adjusted accordingly: Yes Anticipated discharge: SNF
[2019-03-13] MEDS ORDERED: LISINOPRIL 5 MG TABLET PO SCH (15:00)
--- NOTE | 2019-03-13 15:24 | OPERATIVE REPORT E ---
Operative Report NAME: ANN RAMIREZ : 1970 AGE: 48Y DATE OF SURGERY: 03/13/2019 ROOM: 406 PREOPERATIVE DIAGNOSIS: GANGRENE LEFT FOOT. POSTOPERATIVE DIAGNOSIS: GANGRENE LEFT FOOT. OPERATION: LEFT BELOW KNEE AMPUTATION. SURGEON: JUANA HERNANDEZ M.D. PROCEDURE: the patient was brought to the operating room, awake, alert, and in stable condition. Given a spinal anesthetic. His left lower extremity was prepped and draped in the usual sterile manner for the procedure. 5 cm from the patella, a tennis racquet type incision was made with a longer posterior flap. This was done with a 10 blade, and we then carried our dissection down through subcutaneous tissue with Bovie cautery until we reached the muscle compartments. The fascia over the muscle compartments laterally and medially were divided with Bovie cautery. Once this was done, we began our dissection through the anterior calf muscles with Bovie cautery until reaching the anterior tibial artery, which was doubly ligated with 0 Vicryl suture and divided. Similarly, the vein and nerve were handled that way, as was the posterior tibial artery and the peroneal artery. Once this was accomplished, we then came through the lateral muscle compartments with Bovie cautery. Anteriorly, we quickly identified the tibia and we used the periosteal elevator to left the periosteum off the tibia proximally, where we divided it with the bone saw. We continued our dissection using the distal tibia as a lever to retract the distal lower extremity. We came across the soleus muscle, similarly with Bovie cautery as well as the gastrocnemius muscles. We divided the fibula with the bone saw and handled the saphenous veins and nerve bundles with clamps and 0 Vicryl ties. Once this was accomplished and the lower extremity was removed, we irrigated copiously with normal saline and suctioned dry. We trimmed the soleus muscle back so that we could adequately close the posterior flap in an anterior position. We then closed the deep fascia with interrupted 2-0 Vicryl sutures, and then the superficial fascia was closed similarly. The skin was then closed transversely under no tension with stainless steel david. A Xeroform gauze was applied to the suture line, and then the leg was wrapped with a compression bandage, which completed the procedure. The patient was awakened in the operating room and transferred to the recovery room in stable condition. Estimated blood loss for the procedure was approximately 200 mL. Sponge and needle counts were correct x2. DICTATING PHYSICIAN: JUANA HERNANDEZ M.D. [id number] PHY#: [id number] ID: [id number] JOB#: [id number] ACCT: [id number] cc:JUANA HERNANDEZ M.D. >
--- NOTE | 2019-03-13 15:34 | EKG REPORT ---
SEVERITY:- BORDERLINE ECG - BORDERLINE LEFT AXIS DEVIATION SINUS RHYTHM : Confirmed by: Salome Talamantes MD 13-Mar-2019 15:33:57
[2019-03-13] MEDS: LORAZEPAM INJ 2 MG/1 ML VIAL IV PRN (15:46)
[2019-03-13] MEDS: MULTIVITAMIN TABLET PO SCH (15:46)
[2019-03-13] MEDS: PIPERACILLIN SODIUM/TAZOBACTAM 3.375 GM in NORMAL SALINE 100 ML IV SCH ×2 (15:46→21:51)
[2019-03-13] MEDS: THIAMINE HCL 100 MG TABLET PO SCH (15:46)
[2019-03-13] MEDS: INSULIN NPH (ISOPHANE), HUMAN 100 UNIT/ML 3 ML SUBCUT SCH (15:47)
[2019-03-13] MEDS: FOLIC ACID 1 MG TABLET PO SCH (15:47)
[2019-03-13] MEDS ORDERED: INSULIN REG, HUMAN 100 UNIT/ML 3 ML VIAL (PYX) ONE (21:47)
[2019-03-13] MEDS: FAMOTIDINE 20 MG TABLET PO SCH (21:51)
[2019-03-13] MEDS: ATORVASTATIN CALCIUM 10 MG TABLET PO SCH (21:51)
[2019-03-14] MEDS: INSULIN REG, HUMAN 100 UNIT/ML 3 ML VIAL (PYX) SUBCUT SCH ×5 (02:38→21:38)
[2019-03-14] MEDS: LORAZEPAM INJ 2 MG/1 ML VIAL IV PRN (03:06)
[2019-03-14] MEDS: PIPERACILLIN SODIUM/TAZOBACTAM 3.375 GM in NORMAL SALINE 100 ML IV SCH ×4 (03:06→18:11)
[2019-03-14 06:34] LABS: ABSOLUTE LYMPHOCYTES (AUTO) 0.6 10^3/uL (0.5-4.7); ABSOLUTE MONOCYTES (AUTO) 0.6 10^3/uL (0.1-1.4); ABSOLUTE NEUT (AUTO) 9.7 10^3/uL (1.7-8.2); HEMATOCRIT 20.3 % (37.9-51.0); LYMPHOCYTES % (AUTO) 5.9 % (13-45); MEAN CORPUSCULAR HEMOGLOBIN 33.8 pg (27.0-33.4); MEAN CORPUSCULAR HGB CONC 34.3 g/dL (32.0-36.0); MEAN CORPUSCULAR VOLUME 99 fl (80-97); MONOCYTES % (AUTO) 5.2 % (3-13); PLATELET COUNT 179 10^3/uL (150-450); RED BLOOD COUNT 2.06 10^6/uL (4.35-5.55); RED CELL DISTRIBUTION WIDTH 14.3 % (11.5-14.0); SEGMENTED NEUTROPHILS % (AUTO) 88.9 % (42-78); TOTAL CELLS COUNTED % (AUTO) 100 %; WHITE BLOOD COUNT 10.9 10^3/uL (4.0-10.5)
[2019-03-14 06:54] LABS: ALANINE AMINOTRANSFERASE 12 U/L (21-72); ALBUMIN 2.5 g/dL (3.5-5.0); ALKALINE PHOSPHATASE 70 U/L (38-126); ANION GAP 7 (5-19); ASPARTATE AMINO TRANSFERASE 21 U/L (17-59); BILIRUBIN,DIRECT 0.3 mg/dL (0.0-0.4); BILIRUBIN,TOTAL 0.5 mg/dL (0.2-1.3); BLOOD UREA NITROGEN 22 mg/dL (7-20); CALCIUM 8.5 mg/dL (8.4-10.2); CARBON DIOXIDE 19 mmol/L (22-30); CHLORIDE 108 mmol/L (98-107); CHOLESTEROL 124.34 mg/dL (0-200); GLUCOSE 195 mg/dL (75-110); POTASSIUM 4.8 mmol/L (3.6-5.0); SODIUM 133.9 mmol/L (137-145); TRIGLYCERIDES 55 mg/dL (<150)
[2019-03-14 07:05] LABS: DIRECT LDL 67 mg/dL (<100)
[2019-03-14] MEDS: INSULIN NPH (ISOPHANE), HUMAN 100 UNIT/ML 3 ML SUBCUT SCH ×2 (08:24→18:10)
[2019-03-14 08:40] LABS: HEMATOCRIT 20.5 % (37.9-51.0); MEAN CORPUSCULAR HEMOGLOBIN 33.5 pg (27.0-33.4); MEAN CORPUSCULAR HGB CONC 34.3 g/dL (32.0-36.0); MEAN CORPUSCULAR VOLUME 98 fl (80-97); PLATELET COUNT 220 10^3/uL (150-450); RED BLOOD COUNT 2.11 10^6/uL (4.35-5.55); RED CELL DISTRIBUTION WIDTH 14.2 % (11.5-14.0); WHITE BLOOD COUNT 11.9 10^3/uL (4.0-10.5)
--- NOTE | 2019-03-14 09:26 | PDOC PROGRESS REPORT ---
Subjective Progress Note for:: 03/14/19 Subjective:: 38-year-old male with history of diabetes mellitus hypertension chronic renal insufficiency admitted for the left foot gangrene status post left BKA yesterday. His hemoglobin dropped to 7.[address] Salinas is planning to go 2 units of PRBC today. Patient is still complaining of pain. No acute events in the last 24 hours. Patient is afebrile. Reason For Visit: DIABETIC FOOT INFECTION Physical Exam Vital Signs: Temp Pulse Resp BP Pulse Ox 98.0 F 106 H 18 175/77 H 100 03/14/19 08:14 03/14/19 08:14 03/14/19 08:14 03/14/19 08:14 03/14/19 08:14 Intake & Output 03/13/19 03/14/19 03/15/19 06:59 06:59 06:59 Intake Total 5150 Output Total 3675 Balance 1475 Weight 75 kg 74.3 kg General appearance: PRESENT: mild distress, obese Head exam: PRESENT: atraumatic Eye exam: PRESENT: PERRLA Mouth exam: PRESENT: moist, tongue midline Neck exam: ABSENT: carotid bruit, JVD, lymphadenopathy, thyromegaly Respiratory exam: PRESENT: decreased breath sounds Cardiovascular exam: PRESENT: RRR. ABSENT: diastolic murmur, rubs, systolic murmur GI/Abdominal exam: PRESENT: normal bowel sounds, soft. ABSENT: distended, guarding, mass, organolmegaly, rebound, tenderness Extremities exam: PRESENT: other - Left BKA Neurological exam: PRESENT: alert, awake, oriented to person, oriented to place, oriented to time, oriented to situation, CN II-XII grossly intact. ABSENT: motor sensory deficit Psychiatric exam: PRESENT: appropriate affect, normal mood. ABSENT: homicidal ideation, suicidal ideation Results Laboratory Results: 03/14/19 08:18 03/14/19 05:30 03/13/19 03/14/19 03/14/19 08:30 05:30 05:30 WBC 10.9 H RBC 2.06 L Hgb 7.0 L Hct 20.3 L MCV 99 H MCH 33.8 H MCHC 34.3 RDW 14.3 H Plt Count 179 Seg Neutrophils % 88.9 H Lymphocytes % 5.9 L Monocytes % 5.2 Eosinophils % 0.0 Basophils % 0.0 Absolute Neutrophils 9.7 H Absolute Lymphocytes 0.6 Absolute Monocytes 0.6 Absolute Eosinophils 0.0 Absolute Basophils 0.0 Sodium 128.9 L 133.9 L Potassium 5.0 4.8 Chloride 100 108 H Carbon Dioxide 20 L 19 L Anion Gap 9 7 BUN 24 H 22 H Creatinine 1.32 H 1.00 Est GFR ( Amer) > 60 > 60 Est GFR (Non-Af Amer) 58 L > 60 Glucose 150 H 195 H Calcium 8.8 8.5 Magnesium 2.0 Total Bilirubin 0.5 AST 21 ALT 12 L Alkaline Phosphatase 70 Total Protein 6.0 L Albumin 2.5 L Triglycerides 55 Cholesterol 124.34 LDL Cholesterol Direct 67 VLDL Cholesterol 11.0 HDL Cholesterol 40 03/14/19 08:18 WBC 11.9 H RBC 2.11 L Hgb 7.0 L Hct 20.5 L MCV 98 H MCH 33.5 H MCHC 34.3 RDW 14.2 H Plt Count 220 Seg Neutrophils % Lymphocytes % Monocytes % Eosinophils % Basophils % Absolute Neutrophils Absolute Lymphocytes Absolute Monocytes Absolute Eosinophils Absolute Basophils Sodium Potassium Chloride Carbon Dioxide Anion Gap BUN Creatinine Est GFR ( Amer) Est GFR (Non-Af Amer) Glucose Calcium Magnesium Total Bilirubin AST ALT Alkaline Phosphatase Total Protein Albumin Triglycerides Cholesterol LDL Cholesterol Direct VLDL Cholesterol HDL Cholesterol Assessment and Plan - Diagnosis (1) Left infected gangrenous foot Is this a current diagnosis for this admission?: Yes Plan: 03/13/2019-patient was admitted for left ankle and his foot status post BKA. Medical consult was called for management of diabetes. Patient given the pain scale of 5 x 10 on morphine 4 mg IV every 4 as needed for pain. Pain management as per surgical team. On Zosyn 3.375 g 6hrs 03/14/2019-status post left BKA postop day 2. Hemoglobin dropped to 7.0 to give 2 units of PRBC today. (2) Type 2 DM with CKD and hypertension Is this a current diagnosis for this admission?: No Plan: 03/13/2019-patient has a history of type 2 diabetes mellitus in association with chronic kidney disease and hypertension. Patient is noncompliant to medication. Presently on Lantus 10 units twice a day at home and insulin sliding scale plans to continue the same treatment. Started on diabetic diet dietary consult was requested. 03/14/2019-patient has history of type 2 diabetes mellitus with CKD and hypertension. His creatinine was improved to 1.00 today. Acute on chronic renal insufficiency may be secondary to poor oral intake is resolved. (3) Hypertension Qualifiers: Hypertension type: essential hypertension Qualified Code(s): I10 - Essential (primary) hypertension Is this a current diagnosis for this admission?: No Plan: 03/13/2019-patient is given history of hypertension but not take any home medic ations. Started on lisinopril 2.5 mg p.o. daily. Latest blood pressure is 155/80. He is receiving IV fluids at 125 cc/h. 03/14/2019-patient blood pressure today is 175/77. On lisinopril 2.5 mg p.o. daily. Also on IV fluids at 125 cc/h. Plan is to decrease to IV fluids today. And increase lisinopril to 10 mg daily. (4) Anemia Is this a current diagnosis for this admission?: No Plan: 03/13/2019-patient's hemoglobin is 8.7. Gradual decline in hemoglobin since December. Anemia of chronic disease may be secondary to CKD. Plan to repeat hemoglobin tomorrow if necessary plan to give 1 unit of PRBC. 03/14/2019-patient's hemoglobin dropped to 7.0 today. To give 2 units of PRBC today. To check posttransfusion CBC and CBC in the morning. (5) Hyponatremia Is this a current diagnosis for this admission?: Yes Plan: 03/13/2019-patient's serum sodium is 128.9. Hyper natremia most likely secondary to heavy alcohol use. Plan is to closely monitor the serum sodium levels. Currently is on IV fluids normal saline at 125 cc/h. 03/14/2019-admission serum sodium is 129 and it is improved to 134 today. Glucose is 219. Corrected sodium is around 136. hyponatremia due to poor oral intake and uncontrolled diabetes mellitus is resolving. (6) Alcoholism /alcohol abuse Is this a current diagnosis for this admission?: Yes Plan: 03/13/2019-patient history of heavy alcohol use. To start him on Ativan 1 mg IV every 4 as needed to watch for the DTs. 03/14/2019-patient has history of heavy alcohol use. He is on Ativan 1 mg IV every 4 as needed for agitation and watch for the DTs. (7) CKD (chronic kidney disease) Is this a current diagnosis for this admission?: Yes Plan: 03/13/2019-patient's creatinine is 1.32. GFR is more than 60. Chronic CKD may be secondary to uncontrolled diabetes. 03/14/2019-patient's admission creatinine is 1.32 on the repeat creatinine today is 1.00. Acute kidney injury most likely secondary to poor oral intake and uncontrolled diabetes mellitus is resolved. - Time Time Spent with patient: 15-24 minutes Medications reviewed and adjusted accordingly: Yes Anticipated discharge: Home with Homehealth
--- NOTE | 2019-03-14 09:28 | PDOC PROGRESS REPORT ---
Subjective Progress Note for:: 03/14/19 Subjective:: feels ok, min pain tried to get out of bed last pm pulled off dressing struck stump on side of bed some bleeding Reason For Visit: DIABETIC FOOT INFECTION Physical Exam Vital Signs: Temp Pulse Resp BP Pulse Ox 98.0 F 106 H 18 175/77 H 100 03/14/19 08:14 03/14/19 08:14 03/14/19 08:14 03/14/19 08:14 03/14/19 08:14 Intake & Output 03/13/19 03/14/19 03/15/19 06:59 06:59 06:59 Intake Total 5150 Output Total 3675 Balance 1475 Weight 75 kg 74.3 kg General appearance: PRESENT: no acute distress Head exam: PRESENT: normocephalic Eye exam: PRESENT: EOMI Mouth exam: PRESENT: moist Neck exam: PRESENT: full ROM Respiratory exam: PRESENT: clear to auscultation hollis Cardiovascular exam: PRESENT: RRR, tachycardia Pulses: PRESENT: normal radial pulses, normal femoral pulses Vascular exam: PRESENT: normal capillary refill GI/Abdominal exam: PRESENT: soft Rectal exam: PRESENT: deferred Extremities exam: PRESENT: other - left stump skin clean, good cap refill missing 2 david mid incision Neurological exam: PRESENT: alert, awake, oriented to person Skin exam: PRESENT: dry Results Laboratory Results: 03/14/19 08:18 03/14/19 05:30 03/14/19 03/14/19 03/14/19 05:30 05:30 08:18 WBC 10.9 H 11.9 H RBC 2.06 L 2.11 L Hgb 7.0 L 7.0 L Hct 20.3 L 20.5 L MCV 99 H 98 H MCH 33.8 H 33.5 H MCHC 34.3 34.3 RDW 14.3 H 14.2 H Plt Count 179 220 Seg Neutrophils % 88.9 H Lymphocytes % 5.9 L Monocytes % 5.2 Eosinophils % 0.0 Basophils % 0.0 Absolute Neutrophils 9.7 H Absolute Lymphocytes 0.6 Absolute Monocytes 0.6 Absolute Eosinophils 0.0 Absolute Basophils 0.0 Sodium 133.9 L Potassium 4.8 Chloride 108 H Carbon Dioxide 19 L Anion Gap 7 BUN 22 H Creatinine 1.00 Est GFR ( Amer) > 60 Est GFR (Non-Af Amer) > 60 Glucose 195 H Calcium 8.5 Magnesium 2.0 Total Bilirubin 0.5 AST 21 ALT 12 L Alkaline Phosphatase 70 Total Protein 6.0 L Albumin 2.5 L Triglycerides 55 Cholesterol 124.34 LDL Cholesterol Direct 67 VLDL Cholesterol 11.0 HDL Cholesterol 40 Assessment & Plan - Plan Summary Plan Summary: s/p left bka for gangrene of left foot struck stump against bed rail last pm some bleeding, lost 2 david currently this am hb noted to be 7.0 down from 8.7 pre op most probably from op blood loss and hydration will txn 2 units of prbc, due to sl tachycardia will resuture wound at bedside physical rx and occupational med consult
[2019-03-14] MEDS: THIAMINE HCL 100 MG TABLET PO SCH (10:34)
[2019-03-14] MEDS: FAMOTIDINE 20 MG TABLET PO SCH ×2 (10:34→21:46)
[2019-03-14] MEDS: LISINOPRIL 5 MG TABLET PO SCH (10:34)
[2019-03-14] MEDS: MULTIVITAMIN TABLET PO SCH (10:34)
[2019-03-14] MEDS: FOLIC ACID 1 MG TABLET PO SCH (10:41)
[2019-03-14] MEDS: MORPHINE SULFATE 10 MG/ML INJ IV PRN ×2 (15:00→21:46)
[2019-03-14] MEDS ORDERED: PIPERACILLIN SODIUM/TAZOBACTAM 3.375 GM in NORMAL SALINE 100 ML IV SCH (18:00)
[2019-03-14] MEDS: ATORVASTATIN CALCIUM 10 MG TABLET PO SCH (21:46)
[2019-03-15] MEDS: PIPERACILLIN SODIUM/TAZOBACTAM 3.375 GM in NORMAL SALINE 100 ML IV SCH ×4 (00:20→17:54)
[2019-03-15 04:24] LABS: ABSOLUTE LYMPHOCYTES (AUTO) 1.8 10^3/uL (0.5-4.7); ABSOLUTE MONOCYTES (AUTO) 0.7 10^3/uL (0.1-1.4); ABSOLUTE NEUT (AUTO) 6.4 10^3/uL (1.7-8.2); BASOPHILS % (AUTO) 0.2 % (0-2); EOSINOPHILS % (AUTO) 0.3 % (0-6); HEMATOCRIT 23.7 % (37.9-51.0); HEMOGLOBIN 8.2 g/dL (13.5-17.0); LYMPHOCYTES % (AUTO) 19.8 % (13-45); MEAN CORPUSCULAR HEMOGLOBIN 32.7 pg (27.0-33.4); MEAN CORPUSCULAR HGB CONC 34.7 g/dL (32.0-36.0); MONOCYTES % (AUTO) 7.8 % (3-13); PLATELET COUNT 180 10^3/uL (150-450); RED BLOOD COUNT 2.52 10^6/uL (4.35-5.55); RED CELL DISTRIBUTION WIDTH 16.7 % (11.5-14.0); SEGMENTED NEUTROPHILS % (AUTO) 71.9 % (42-78); TOTAL CELLS COUNTED % (AUTO) 100 %; WHITE BLOOD COUNT 8.9 10^3/uL (4.0-10.5)
[2019-03-15 04:33] LABS: MEAN CORPUSCULAR VOLUME 94 fl (80-97)
[2019-03-15 04:42] LABS: ALANINE AMINOTRANSFERASE 17 U/L (21-72); ALBUMIN 2.4 g/dL (3.5-5.0); ALKALINE PHOSPHATASE 70 U/L (38-126); ANION GAP 9 (5-19); ASPARTATE AMINO TRANSFERASE 22 U/L (17-59); BILIRUBIN,DIRECT 0.4 mg/dL (0.0-0.4); BILIRUBIN,TOTAL 0.9 mg/dL (0.2-1.3); BLOOD UREA NITROGEN 16 mg/dL (7-20); CALCIUM 8.3 mg/dL (8.4-10.2); CARBON DIOXIDE 20 mmol/L (22-30); CHLORIDE 110 mmol/L (98-107); GLUCOSE 73 mg/dL (75-110); POTASSIUM 4.2 mmol/L (3.6-5.0); TOTAL PROTEIN 5.9 g/dL (6.3-8.2)
[2019-03-15] MEDS: MORPHINE SULFATE 10 MG/ML INJ IV PRN ×4 (05:52→22:59)
--- NOTE | 2019-03-15 08:20 | PDOC PROGRESS REPORT ---
Subjective Progress Note for:: 03/15/19 Subjective:: comfortable. no pain Reason For Visit: DIABETIC FOOT INFECTION Physical Exam Vital Signs: Temp Pulse Resp BP Pulse Ox 98.1 F 97 17 146/70 H 100 03/15/19 08:00 03/15/19 08:00 03/15/19 08:00 03/15/19 08:00 03/15/19 08:00 Intake & Output 03/14/19 03/15/19 03/16/19 06:59 06:59 06:59 Intake Total 5150 3760 Output Total 3675 2150 Balance 1475 1610 Weight 74.3 kg 74.9 kg General appearance: PRESENT: no acute distress Head exam: PRESENT: normocephalic Eye exam: PRESENT: EOMI Mouth exam: PRESENT: moist Neck exam: PRESENT: full ROM Respiratory exam: PRESENT: clear to auscultation hollis Cardiovascular exam: PRESENT: RRR Pulses: PRESENT: normal radial pulses, normal femoral pulses GI/Abdominal exam: PRESENT: soft Rectal exam: PRESENT: deferred Extremities exam: PRESENT: calf tenderness, other - stump clean,suture line intact Musculoskeletal exam: PRESENT: full ROM, other - bed rest for now Neurological exam: PRESENT: alert, awake, oriented to person, oriented to time Skin exam: PRESENT: dry Results Laboratory Results: 03/15/19 03:28 03/15/19 03:28 03/14/19 03/14/19 03/15/19 08:18 10:52 03:28 WBC 11.9 H 8.9 RBC 2.11 L 2.52 L Hgb 7.0 L 8.2 L Hct 20.5 L 23.7 L MCV 98 H 94 D MCH 33.5 H 32.7 MCHC 34.3 34.7 RDW 14.2 H 16.7 H Plt Count 220 180 Seg Neutrophils % 71.9 Lymphocytes % 19.8 Monocytes % 7.8 Eosinophils % 0.3 Basophils % 0.2 Absolute Neutrophils 6.4 Absolute Lymphocytes 1.8 Absolute Monocytes 0.7 Absolute Eosinophils 0.0 Absolute Basophils 0.0 Sodium Potassium Chloride Carbon Dioxide Anion Gap BUN Creatinine Est GFR ( Amer) Est GFR (Non-Af Amer) Glucose Calcium Magnesium Total Bilirubin AST ALT Alkaline Phosphatase Total Protein Albumin Blood Type O POSITIVE Antibody Screen NEGATIVE 03/15/19 03:28 WBC RBC Hgb Hct MCV MCH MCHC RDW Plt Count Seg Neutrophils % Lymphocytes % Monocytes % Eosinophils % Basophils % Absolute Neutrophils Absolute Lymphocytes Absolute Monocytes Absolute Eosinophils Absolute Basophils Sodium 139.0 Potassium 4.2 Chloride 110 H Carbon Dioxide 20 L Anion Gap 9 BUN 16 Creatinine 0.99 Est GFR ( Amer) > 60 Est GFR (Non-Af Amer) > 60 Glucose 73 L Calcium 8.3 L Magnesium 2.0 Total Bilirubin 0.9 AST 22 ALT 17 L Alkaline Phosphatase 70 Total Protein 5.9 L Albumin 2.4 L Blood Type Antibody Screen Assessment & Plan - Plan Summary Plan Summary: transfused 2 units prbc yesterday with appropriated resopnse this am feels well awaiting physical theraypy bedrest till then cont abx
[2019-03-15] MEDS: INSULIN REG, HUMAN 100 UNIT/ML 3 ML VIAL (PYX) SUBCUT SCH ×4 (09:11→23:02)
[2019-03-15] MEDS: FOLIC ACID 1 MG TABLET PO SCH (09:59)
[2019-03-15] MEDS: INSULIN NPH (ISOPHANE), HUMAN 100 UNIT/ML 3 ML SUBCUT SCH ×2 (09:59→18:01)
[2019-03-15] MEDS: THIAMINE HCL 100 MG TABLET PO SCH (10:00)
[2019-03-15] MEDS: LISINOPRIL 5 MG TABLET PO SCH (10:00)
[2019-03-15] MEDS: MULTIVITAMIN TABLET PO SCH (10:00)
[2019-03-15] MEDS: FAMOTIDINE 20 MG TABLET PO SCH ×2 (10:00→23:01)
[2019-03-15] MEDS: ATORVASTATIN CALCIUM 10 MG TABLET PO SCH (23:01)
[2019-03-16] MEDS: PIPERACILLIN SODIUM/TAZOBACTAM 3.375 GM in NORMAL SALINE 100 ML IV SCH ×5 (00:18→23:14)
[2019-03-16 04:19] LABS: ABSOLUTE EOSINOPHILS # (AUTO) 0.1 10^3/uL (0.0-0.6); ABSOLUTE LYMPHOCYTES (AUTO) 1.6 10^3/uL (0.5-4.7); ABSOLUTE MONOCYTES (AUTO) 0.7 10^3/uL (0.1-1.4); BASOPHILS % (AUTO) 0.5 % (0-2); HEMATOCRIT 24.5 % (37.9-51.0); HEMOGLOBIN 8.7 g/dL (13.5-17.0); LYMPHOCYTES % (AUTO) 21.7 % (13-45); MEAN CORPUSCULAR HEMOGLOBIN 33.2 pg (27.0-33.4); MEAN CORPUSCULAR HGB CONC 35.5 g/dL (32.0-36.0); MEAN CORPUSCULAR VOLUME 94 fl (80-97); MONOCYTES % (AUTO) 9.2 % (3-13); PLATELET COUNT 185 10^3/uL (150-450); RED BLOOD COUNT 2.61 10^6/uL (4.35-5.55); RED CELL DISTRIBUTION WIDTH 16.3 % (11.5-14.0); SEGMENTED NEUTROPHILS % (AUTO) 66.6 % (42-78); TOTAL CELLS COUNTED % (AUTO) 100 %; WHITE BLOOD COUNT 7.5 10^3/uL (4.0-10.5)
[2019-03-16 04:44] LABS: ALANINE AMINOTRANSFERASE 22 U/L (21-72); ALBUMIN 2.5 g/dL (3.5-5.0); ALKALINE PHOSPHATASE 73 U/L (38-126); ANION GAP 6 (5-19); ASPARTATE AMINO TRANSFERASE 19 U/L (17-59); BILIRUBIN,DIRECT 0.3 mg/dL (0.0-0.4); BILIRUBIN,TOTAL 0.8 mg/dL (0.2-1.3); BLOOD UREA NITROGEN 13 mg/dL (7-20); CALCIUM 8.4 mg/dL (8.4-10.2); CARBON DIOXIDE 24 mmol/L (22-30); CHLORIDE 109 mmol/L (98-107); GLUCOSE 99 mg/dL (75-110); POTASSIUM 4.1 mmol/L (3.6-5.0); SODIUM 139.3 mmol/L (137-145)
[2019-03-16] MEDS: MORPHINE SULFATE 10 MG/ML INJ IV PRN (06:13)
[2019-03-16] MEDS: INSULIN REG, HUMAN 100 UNIT/ML 3 ML VIAL (PYX) SUBCUT SCH ×4 (07:58→21:38)
--- NOTE | 2019-03-16 09:22 | PDOC PROGRESS REPORT ---
Subjective Progress Note for:: 03/16/19 Subjective:: 38-year-old male with history of diabetes mellitus hypertension chronic renal insufficiency admitted for the left foot gangrene status post left BKA yesterday. His hemoglobin dropped to 7.[address] Salinas is planning to go 2 units of PRBC today. Patient is still complaining of pain. No acute events in the last 24 hours. Patient is afebrile. [id number] male with history of diabetes mellitus, hypertension admitted with the left foot gangrene. Status post left BKA. Status post 2 units of blood transfusion during the hospital stay his hemoglobin today is 8.7. His blood sugar this morning 104. Patient is expressing desire to go home. Reason For Visit: DIABETIC FOOT INFECTION Physical Exam Vital Signs: Temp Pulse Resp BP Pulse Ox 98.2 F 95 16 161/71 H 100 03/16/19 08:00 03/16/19 08:00 03/16/19 08:00 03/16/19 08:00 03/16/19 08:00 Intake & Output 03/15/19 03/16/19 03/17/19 06:59 06:59 06:59 Intake Total 3760 1360 100 Output Total 2150 3800 Balance 1610 -2440 100 Weight 74.9 kg 71.3 kg General appearance: PRESENT: no acute distress Head exam: PRESENT: atraumatic Eye exam: PRESENT: PERRLA Mouth exam: PRESENT: moist, tongue midline Neck exam: ABSENT: carotid bruit, JVD, lymphadenopathy, thyromegaly Respiratory exam: PRESENT: clear to auscultation hollis. ABSENT: rales, rhonchi, wheezes Cardiovascular exam: PRESENT: RRR. ABSENT: diastolic murmur, rubs, systolic murmur GI/Abdominal exam: PRESENT: normal bowel sounds, soft. ABSENT: distended, guarding, mass, organolmegaly, rebound, tenderness Extremities exam: PRESENT: other - Left BKA Neurological exam: PRESENT: alert, awake, oriented to person, oriented to place, oriented to time, oriented to situation, CN II-XII grossly intact. ABSENT: motor sensory deficit Psychiatric exam: PRESENT: appropriate affect, normal mood. ABSENT: homicidal ideation, suicidal ideation Results Laboratory Results: 03/16/19 03:30 03/16/19 03:30 03/16/19 03/16/19 03:30 03:30 WBC 7.5 RBC 2.61 L Hgb 8.7 L Hct 24.5 L MCV 94 MCH 33.2 MCHC 35.5 RDW 16.3 H Plt Count 185 Seg Neutrophils % 66.6 Lymphocytes % 21.7 Monocytes % 9.2 Eosinophils % 2.0 Basophils % 0.5 Absolute Neutrophils 5.0 Absolute Lymphocytes 1.6 Absolute Monocytes 0.7 Absolute Eosinophils 0.1 Absolute Basophils 0.0 Sodium 139.3 Potassium 4.1 Chloride 109 H Carbon Dioxide 24 Anion Gap 6 BUN 13 Creatinine 1.08 Est GFR ( Amer) > 60 Est GFR (Non-Af Amer) > 60 Glucose 99 Calcium 8.4 Magnesium 1.8 Total Bilirubin 0.8 AST 19 ALT 22 Alkaline Phosphatase 73 Total Protein 6.0 L Albumin 2.5 L Assessment and Plan - Diagnosis (1) Left infected gangrenous foot Is this a current diagnosis for this admission?: Yes Plan: 03/13/2019-patient was admitted for left ankle and his foot status post BKA. Medical consult was called for management of diabetes. Patient given the pain scale of 5 x 10 on morphine 4 mg IV every 4 as needed for pain. Pain management as per surgical team. On Zosyn 3.375 g 6hrs 03/14/2019-status post left BKA postop day 2. Hemoglobin dropped to 7.0 to give 2 units of PRBC today. 03/16/2019-left BKA postop day 3. Stable. Hemoglobin is 8.7. Patient has a low-grade fever of 99.8. Presently on Zosyn plan is to continue present management. (2) Type 2 DM with CKD and hypertension Is this a current diagnosis for this admission?: No Plan: 03/13/2019-patient has a history of type 2 diabetes mellitus in association with chronic kidney disease and hypertension. Patient is noncompliant to medication. Presently on Lantus 10 units twice a day at home and insulin sliding scale plans to continue the same treatment. Started on diabetic diet dietary consult was requested. 03/14/2019-patient has history of type 2 diabetes mellitus with CKD and hypertension. His creatinine was improved to 1.00 today. Acute on chronic r enal insufficiency may be secondary to poor oral intake is resolved. 03/16/2019-patient has history of type 2 diabetes mellitus. Patient's serum creatinine is 1.08 stable. Plan is to decrease the insulin to 15 units twice a day. (3) Hypertension Qualifiers: Hypertension type: essential hypertension Qualified Code(s): I10 - Es sential (primary) hypertension Is this a current diagnosis for this admission?: No Plan: 03/13/2019-patient is given history of hypertension but not take any home medications. Started on lisinopril 2.5 mg p.o. daily. Latest blood pressure is 155/80. He is receiving IV fluids at 125 cc/h. 03/14/2019-patient blood pressure today is 175/77. On lisinopril 2.5 mg p.o. daily. Also on IV fluids at 125 cc/h. Plan is to decrease to IV fluids today. And increase lisinopril to 10 mg daily. 03/16/2019-patient blood pressure today is 153/72 on lisinopril 10 mg p.o. daily. off IV fluids. Plan is to continue the present management. (4) Anemia Is this a current diagnosis for this admission?: No Plan: 03/13/2019-patient's hemoglobin is 8.7. Gradual decline in hemoglobin since December. Anemia of chronic disease may be secondary to CKD. Plan to repeat hemoglobin tomorrow if necessary plan to give 1 unit of PRBC. 03/14/2019-patient's hemoglobin dropped to 7.0 today. To give 2 units of PRBC today. To check posttransfusion CBC and CBC in the morning. 03/16/2019-patient's latest hemoglobin is 8.7 anemia of chronic disease most likely secondary to chronic kidney disease. (5) Hyponatremia Is this a current diagnosis for this admission?: Yes Plan: 03/13/2019-patient's serum sodium is 128.9. Hyper natremia most likely secondary to heavy alcohol use. Plan is to closely monitor the serum sodium levels. Currently is on IV fluids normal saline at 125 cc/h. 03/14/2019-admission serum sodium is 129 and it is improved to 134 today. Glucose is 219. Corrected sodium is around 136. hyponatremia due to poor oral intake and uncontrolled diabetes mellitus is resolving. 03/16/2019-patient serum sodium today is 139. Hyponatremia is resolved. (6) Alcoholism /alcohol abuse Is this a current diagnosis for this admission?: Yes (7) CKD (chronic kidney disease) Is this a current diagnosis for this admission?: Yes Plan: 03/13/2019-patient's creatinine is 1.32. GFR is more than 60. Chronic CKD may be secondary to uncontrolled diabetes. 03/14/2019-patient's admission creatinine is 1.32 on the repeat creatinine today is 1.00. Acute kidney injury most likely secondary to poor oral intake and uncontrolled diabetes mellitus is resolved. 03/16/2019-patient serum creatinine is 1.08 improved from 1.32 on admission. Acute kidney injury most likely secondary to poor oral intake. - Time Time Spent with patient: 15-24 minutes Smoking Cessation Education: 3 to 10 minutes Medications reviewed and adjusted accordingly: Yes Anticipated discharge: Home with Homehealth
[2019-03-16] MEDS ORDERED: MORPHINE SULFATE 10 MG/ML INJ IV PRN (10:07)
[2019-03-16] MEDS: FOLIC ACID 1 MG TABLET PO SCH (10:24)
[2019-03-16] MEDS: FAMOTIDINE 20 MG TABLET PO SCH ×2 (10:24→21:37)
[2019-03-16] MEDS: LISINOPRIL 5 MG TABLET PO SCH (10:24)
[2019-03-16] MEDS: MULTIVITAMIN TABLET PO SCH (10:24)
[2019-03-16] MEDS: HYDROCODONE/ACETAMINOPHEN 10-325 MG TABLET PO PRN ×3 (10:25→21:37)
[2019-03-16] MEDS: THIAMINE HCL 100 MG TABLET PO SCH (10:25)
[2019-03-16] MEDS: INSULIN NPH (ISOPHANE), HUMAN 100 UNIT/ML 3 ML SUBCUT SCH ×2 (10:25→17:27)
--- NOTE | 2019-03-16 10:55 | PDOC PROGRESS REPORT ---
Subjective Progress Note for:: 03/16/19 Reason For Visit: DIABETIC FOOT INFECTION Physical Exam Vital Signs: Temp Pulse Resp BP Pulse Ox 98.2 F 95 16 161/71 H 100 03/16/19 08:00 03/16/19 08:00 03/16/19 08:00 03/16/19 08:00 03/16/19 08:00 Intake & Output 03/15/19 03/16/19 03/17/19 06:59 06:59 06:59 Intake Total 3760 1360 100 Output Total 2150 3800 Balance 1610 -2440 100 Weight 74.9 kg 71.3 kg Results Laboratory Results: 03/16/19 03:30 03/16/19 03:30 03/16/19 03/16/19 03:30 03:30 WBC 7.5 RBC 2.61 L Hgb 8.7 L Hct 24.5 L MCV 94 MCH 33.2 MCHC 35.5 RDW 16.3 H Plt Count 185 Seg Neutrophils % 66.6 Lymphocytes % 21.7 Monocytes % 9.2 Eosinophils % 2.0 Basophils % 0.5 Absolute Neutrophils 5.0 Absolute Lymphocytes 1.6 Absolute Monocytes 0.7 Absolute Eosinophils 0.1 Absolute Basophils 0.0 Sodium 139.3 Potassium 4.1 Chloride 109 H Carbon Dioxide 24 Anion Gap 6 BUN 13 Creatinine 1.08 Est GFR ( Amer) > 60 Est GFR (Non-Af Amer) > 60 Glucose 99 Calcium 8.4 Magnesium 1.8 Total Bilirubin 0.8 AST 19 ALT 22 Alkaline Phosphatase 73 Total Protein 6.0 L Albumin 2.5 L Assessment & Plan - Diagnosis (1) Osteomyelitis of left foot Qualifiers: Osteomyelitis type: other acute Qualified Code(s): M86.172 - Other acute osteomyelitis, left ankle and foot Is this a current diagnosis for this admission?: Yes (2) Uncontrolled diabetes mellitus Qualifiers: Diabetes mellitus type: type 2 Is this a current diagnosis for this admission?: Yes - Plan Summary Plan Summary: This is a 48-year-old male with a severe left diabetic foot infection. He is status post left below-knee amputation. The knee immobilizer and dressing are in place. There is no soiling. The patient has no complaints today. Continue with knee immobilizer and pain control. Anticipate discharge in the next 24-48 hours.
[2019-03-16] MEDS: GABAPENTIN 300 MG CAPSULE PO SCH ×2 (15:48→21:37)
[2019-03-16] MEDS: ATORVASTATIN CALCIUM 10 MG TABLET PO SCH (21:37)
[2019-03-17] MEDS: PIPERACILLIN SODIUM/TAZOBACTAM 3.375 GM in NORMAL SALINE 100 ML IV SCH ×3 (05:24→17:26)
[2019-03-17] MEDS: GABAPENTIN 300 MG CAPSULE PO SCH ×2 (05:24→13:21)
[2019-03-17] MEDS: HYDROCODONE/ACETAMINOPHEN 10-325 MG TABLET PO PRN ×3 (06:23→18:53)
--- NOTE | 2019-03-17 07:26 | PDOC PROGRESS REPORT ---
Subjective Progress Note for:: 03/17/19 Subjective:: feels well ciaran reg diet now able to ambulate with wheeled walker Reason For Visit: DIABETIC FOOT INFECTION Physical Exam Vital Signs: Temp Pulse Resp BP Pulse Ox 98.6 F 80 16 150/76 H 100 03/16/19 23:42 03/16/19 23:42 03/16/19 23:42 03/16/19 23:42 03/16/19 23:42 Intake & Output 03/16/19 03/17/19 03/18/19 06:59 06:59 06:59 Intake Total 1360 1980 Output Total 3800 950 Balance -2440 1030 Weight 71.3 kg 71.3 kg General appearance: PRESENT: no acute distress Head exam: PRESENT: normocephalic Eye exam: PRESENT: EOMI Mouth exam: PRESENT: moist, neck supple Respiratory exam: PRESENT: clear to auscultation hollis Cardiovascular exam: PRESENT: RRR Vascular exam: PRESENT: normal capillary refill GI/Abdominal exam: PRESENT: soft Rectal exam: PRESENT: deferred Extremities exam: PRESENT: other - amputation site left bka, looks clean, well perfused. healing. Musculoskeletal exam: PRESENT: ambulatory Neurological exam: PRESENT: alert Psychiatric exam: PRESENT: appropriate affect Skin exam: PRESENT: dry Results Laboratory Results: 03/16/19 03:30 03/16/19 03:30 Assessment & Plan - Plan Summary Plan Summary: s/p left bka doing well has worked with pt and now able to walk iwth walker wound clean dry pt could be discharged home after seen by discharge planning and arrangements made for rehab and home equipment.
[2019-03-17] MEDS: INSULIN REG, HUMAN 100 UNIT/ML 3 ML VIAL (PYX) SUBCUT SCH ×3 (08:06→17:03)
--- NOTE | 2019-03-17 08:53 | PDOC PROGRESS REPORT ---
Subjective Progress Note for:: 03/17/19 Subjective:: 38-year-old male with history of diabetes mellitus hypertension chronic renal insufficiency admitted for the left foot gangrene status post left BKA yesterday. His hemoglobin dropped to 7.[address] Salinas is planning to go 2 units of PRBC today. Patient is still complaining of pain. No acute events in the last 24 hours. Patient is afebrile. 03/16/[id number]-jvbi-old male with history of diabetes mellitus, hypertension admitted with the left foot gangrene. Status post left BKA. Status post 2 units of blood transfusion during the hospital stay his hemoglobin today is 8.7. His blood sugar this morning 104. Patient is expressing desire to go home. 03/17/2019-48 years old male with h/o diabetes , htn admitted after lt bka .medical consult was requested for management of diabetes and htn. Patient is doing well blood sugars are well controlled blood pressure is moderately controlled today. he is going home today as per the surgical team. Patient is comfortable in the bed denies any complaints. Reason For Visit: DIABETIC FOOT INFECTION Physical Exam Vital Signs: Temp Pulse Resp BP Pulse Ox 98.6 F 80 16 150/76 H 100 03/16/19 23:42 03/16/19 23:42 03/16/19 23:42 03/16/19 23:42 03/16/19 23:42 Intake & Output 03/16/19 03/17/19 03/18/19 06:59 06:59 06:59 Intake Total 1360 1980 Output Total 3800 950 Balance -2440 1030 Weight 71.3 kg 71.3 kg General appearance: PRESENT: no acute distress, obese Head exam: PRESENT: atraumatic Eye exam: PRESENT: PERRLA Neck exam: ABSENT: carotid bruit, JVD, lymphadenopathy, thyromegaly Respiratory exam: PRESENT: clear to auscultation hollis. ABSENT: rales, rhonchi, wheezes Cardiovascular exam: PRESENT: RRR. ABSENT: diastolic murmur, rubs, systolic murmur GI/Abdominal exam: PRESENT: normal bowel sounds, soft. ABSENT: distended, guarding, mass, organolmegaly, rebound, tenderness Rectal exam: PRESENT: deferred Extremities exam: PRESENT: other - Left BKA Neurological exam: PRESENT: alert, awake, oriented to person, oriented to place, oriented to time, oriented to situation, CN II-XII grossly intact. ABSENT: motor sensory deficit Psychiatric exam: PRESENT: appropriate affect, normal mood. ABSENT: homicidal ideation, suicidal ideation Skin exam: PRESENT: dry, intact, warm. ABSENT: cyanosis, rash Results Laboratory Results: 03/16/19 03:30 03/16/19 03:30 Assessment and Plan - Diagnosis (1) Left infected gangrenous foot Is this a current diagnosis for this admission?: Yes Plan: 03/13/2019-patient was admitted for left ankle and his foot status post BKA. Medical consult was called for management of diabetes. Patient given the pain scale of 5 x 10 on morphine 4 mg IV every 4 as needed for pain. Pain management as per surgical team. On Zosyn 3.375 g 6hrs 03/14/2019-status post left BKA postop day 2. Hemoglobin dropped to 7.0 to give 2 units of PRBC today. 03/16/2019-left BKA postop day 3. Stable. Hemoglobin is 8.7. Patient has a low -grade fever of 99.8. Presently on Zosyn plan is to continue present management. 03/17/2019-status post left BKA postop day 4. Patient is doing well. As per the surgical team patient is going home today. (2) Type 2 DM with CKD and hypertension Is this a current diagnosis for this admission?: No Plan: 03/13/2019-patient has a history of type 2 diabetes mellitus in association with chronic kidney disease and hypertension. Patient is noncompliant to medication. Presently on Lantus 10 units twice a day at home and insulin sliding scale plans to continue the same treatment. Started on diabetic diet dietary consult was requested. 03/14/2019-patient has history of type 2 diabetes mellitus with CKD and hypertension. His creatinine was improved to 1.00 today. Acute on chronic renal insufficiency may be secondary to poor oral intake is resolved. 03/16/2019-patient has history of type 2 diabetes mellitus. Patient's serum creatinine is 1.08 stable. Plan is to decrease the insulin to 15 units twice a day. 03/17/2019-patient has history of type 2 diabetes mellitus. Hemoglobin A1c is 7.3. Blood sugar this morning is 107. Patient states he has enough diabetic supplies at home does not want any prescriptions. Patient is advised to follow- up with primary care physician for diabetes management in 3 to 5 days. (3) Hypertension Qualifiers: Hypertension type: essential hypertension Qualified Code(s): I10 - Essential (primary) hypertension Is this a current diagnosis for this admission?: No Plan: 03/13/2019-patient is given history of hypertension but not take any home medications. Started on lisinopril 2.5 mg p.o. daily. Latest blood pressure is 155/80. He is receiving IV fluids at 125 cc/h. 03/14/2019-patient blood pressure today is 175/77. On lisinopril 2.5 mg p.o. daily. Also on IV fluids at 125 cc/h. Plan is to decrease to IV fluids today. And increase lisinopril to 10 mg daily. 03/16/2019-patient blood pressure today is 153/72 on lisinopril 10 mg p.o. daily. off IV fluids. Plan is to continue the present management. 03/17/2019-patient blood pressure today is 150/76. Presently on lisinopril 10 mg p.o. daily patient says he has prescriptions at home. (4) Anemia Is this a current diagnosis for this admission?: No Plan: 03/13/2019-patient's hemoglobin is 8.7. Gradual decline in hemoglobin since December. Anemia of chronic disease may be secondary to CKD. Plan to repeat hemoglobin tomorrow if necessary plan to give 1 unit of PRBC. 03/14/2019-patient's hemoglobin dropped to 7.0 today. To give 2 units of PRBC today. To check posttransfusion CBC and CBC in the morning. 03/16/2019-patient's latest hemoglobin is 8.7 anemia of chronic disease most likely secondary to chronic kidney disease. 03/17/2019-patient hemoglobin is 8.7 has anemia of chronic disease. He strongly advised to follow-up with primary care physician for further management. (5) Hyponatremia Is this a current diagnosis for this admission?: Yes Plan: 03/13/2019-patient's serum sodium is 128.9. Hyper natremia most likely secondary to heavy alcohol use. Plan is to closely monitor the serum sodium levels. Currently is on IV fluids normal saline at 125 cc/h. 03/14/2019-admission serum sodium is 129 and it is improved to 134 today. Glucose is 219. Corrected sodium is around 136. hyponatremia due to poor oral intake and uncontrolled diabetes mellitus is resolving. 03/16/2019-patient serum sodium today is 139. Hyponatremia is resolved. 03/17/2019 latest serum sodium level is 139 and the hyponatremia is resolved. (6) Alcoholism /alcohol abuse Is this a current diagnosis for this admission?: Yes (7) CKD (chronic kidney disease) Is this a current diagnosis for this admission?: Yes - Time Time Spent with patient: 15-24 minutes Medications reviewed and adjusted accordingly: Yes Anticipated discharge: Home with Homehealth
[2019-03-17 08:56] LABS: MEAN CORPUSCULAR VOLUME 94 fl (80-97)
[2019-03-17 09:11] LABS: ABSOLUTE EOSINOPHILS # (AUTO) 0.2 10^3/uL (0.0-0.6); ABSOLUTE LYMPHOCYTES (AUTO) 1.1 10^3/uL (0.5-4.7); ABSOLUTE MONOCYTES (AUTO) 0.4 10^3/uL (0.1-1.4); ABSOLUTE NEUT (AUTO) 5.5 10^3/uL (1.7-8.2); BASOPHILS % (AUTO) 0.4 % (0-2); HEMATOCRIT 28.2 % (37.9-51.0); HEMOGLOBIN 9.6 g/dL (13.5-17.0); LYMPHOCYTES % (AUTO) 15.5 % (13-45); MEAN CORPUSCULAR HEMOGLOBIN 32.2 pg (27.0-33.4); MEAN CORPUSCULAR HGB CONC 34.1 g/dL (32.0-36.0); MONOCYTES % (AUTO) 6.1 % (3-13); PLATELET COUNT 223 10^3/uL (150-450); RED BLOOD COUNT 2.98 10^6/uL (4.35-5.55); TOTAL CELLS COUNTED % (AUTO) 100 %; WHITE BLOOD COUNT 7.4 10^3/uL (4.0-10.5)
[2019-03-17] MEDS: FAMOTIDINE 20 MG TABLET PO SCH (09:22)
[2019-03-17] MEDS: LISINOPRIL 5 MG TABLET PO SCH (09:22)
[2019-03-17] MEDS: INSULIN NPH (ISOPHANE), HUMAN 100 UNIT/ML 3 ML SUBCUT SCH ×2 (09:22→17:25)
[2019-03-17] MEDS: FOLIC ACID 1 MG TABLET PO SCH (09:22)
[2019-03-17] MEDS: MULTIVITAMIN TABLET PO SCH (09:22)
[2019-03-17 09:23] LABS: ALANINE AMINOTRANSFERASE 20 U/L (21-72); ALBUMIN 2.7 g/dL (3.5-5.0); ALKALINE PHOSPHATASE 72 U/L (38-126); ANION GAP 8 (5-19); ASPARTATE AMINO TRANSFERASE 17 U/L (17-59); BILIRUBIN,DIRECT 0.4 mg/dL (0.0-0.4); BILIRUBIN,TOTAL 0.8 mg/dL (0.2-1.3); BLOOD UREA NITROGEN 13 mg/dL (7-20); CALCIUM 8.7 mg/dL (8.4-10.2); CARBON DIOXIDE 23 mmol/L (22-30); CHLORIDE 108 mmol/L (98-107); GLUCOSE 156 mg/dL (75-110); POTASSIUM 4.1 mmol/L (3.6-5.0); SODIUM 139.2 mmol/L (137-145); TOTAL PROTEIN 6.4 g/dL (6.3-8.2)
[2019-03-17] MEDS: THIAMINE HCL 100 MG TABLET PO SCH (11:18)
[2019-03-17 18:21] VITALS: BP 146/79
--- NOTE | 2019-03-18 08:49 | DISCHARGE SUMMARY E ---
Discharge Summary NAME: ANN RAMIREZ : 1970 AGE: 48Y ADMITTED: 03/13/2019 DISCHARGED: 03/17/2019 ADMISSION DIAGNOSIS: Gangrene, left foot. DISCHARGE DIAGNOSIS: Gangrene, left foot. OPERATIVE PROCEDURE: Left lolda-wan-vypm amputation. SURGEON: Jorje Hernandez M.D. REASON FOR HOSPITALIZATION/HOSPITAL COURSE: This is a 48-year-old male with type 2 diabetes, hypertension, alcohol abuse, who was admitted for an elective left encts-ymi-klxm amputation. He had previously undergone a transmetatarsal amputation of the left foot, which has failed with chronic infected stump. He has consented to a left vseoo-aym-arxs amputation. He was admitted on the day of surgery on 03/13/2019 and he underwent an uncomplicated left twihk-qki-tuzu amputation. Postoperatively, he had a routine postop course. Dr. Alicea from [facility] also followed along with the patient secondary to management of his diabetes. He also had a drop in hemoglobin after his surgery and received 2 units of packed cells on postop day 2. He continued to improve throughout the hospital course. His wound was checked every day and it was healing appropriately. He was advanced to a diabetic diet on postop day one. On postop day 2, he was comfortable with no pain, tolerating a diet. His sugars were controlled with IV insulin. Dr. Alicea continued to follow his diabetes in the hospital, and by postoperative day 4, he was afebrile with stable vital signs. His BKA stump was healing well. He was tolerating a regular diet. His hemoglobin and hematocrit remained stable. The patient was ready to go home on postop day 4. He has his own medications for pain at home, which he received during his last hospital stay as well as his insulin, which he has been using at home on a sliding scale. He was discharged home on 03/17 and he will be given a followup appointment with me in 1 week after discharge. FINAL DIAGNOSIS: Gangrene, left foot secondary to type 2 diabetes. DICTATING PHYSICIAN: JORJE HERNANDEZ M.D. [id number] PHY#: [id number] ID: [id number] JOB#: [id number] ACCT: [id number] cc:JORJE HERNANDEZ M.D. >
== END 2019-03-17 19:11 | disposition home or self-care (01) | DRG 240 ==
LOC: INOR 07:29 → 4N 12:32
PROVIDERS: ADMIT Surgery; ATTEND Surgery
PROC: 0Y6J0Z2 Detachment at Left Lower Leg, Mid, Open Approach (ICD-10-PCS; principal; 2019-03-13 09:00)
PROC: 30233N1 Transfusion of Nonautologous Red Blood Cells into Peripheral Vein, Percutaneous Approach (ICD-10-PCS; 2019-03-14)
DX: E11.52 Type 2 diabetes mellitus with diabetic peripheral angiopathy with gangrene (principal); I96 Gangrene, not elsewhere classified; E87.1 Hypo-osmolality and hyponatremia; D63.1 Anemia in chronic kidney disease; E11.22 Type 2 diabetes mellitus with diabetic chronic kidney disease; I12.9 Hypertensive chronic kidney disease with stage 1 through stage 4 chronic kidney disease, or unspecified chronic kidney disease; N18.9 Chronic kidney disease, unspecified; E11.65 Type 2 diabetes mellitus with hyperglycemia; F10.10 Alcohol abuse, uncomplicated; Y90.9 Presence of alcohol in blood, level not specified; Z79.4 Long term (current) use of insulin
CPT/HCPCS: 01482; 36415; 36430; 80048; 80053; 80061; 82962; 83036; 83735; 85025; 85027; 86850; 86900; 86901; 86920; 88307; 88311; 93005; 93010; J0131; J0690; J1100; J1815; J1885; J2060; J2250; J2270; J2405; J2543; J2704; J2765; J3010; J7030; L1830; P9016